=== PATIENT | female | born 1940 | race Two or more races ===

== ENCOUNTER 2019-10-20 10:30 | Outpatient (CLI) | payer MEDICARE, OTHER ==
[2019-10-20 12:24] LABS: BASOPHILS % (AUTO) 0.4 % (0.0-2.0); HEMATOCRIT 32 % (33-45); HEMOGLOBIN 10.5 g/dL (11.5-14.8); LYMPHOCYTES # (AUTO) 0.9 /CMM (0.8-4.8); LYMPHOCYTES % (AUTO) 9.4 % (20.0-44.0); MEAN CORPUSCULAR HGB CONC 33 g/dl (31.0-36.0); MEAN CORPUSCULAR VOLUME 87 fL (82-100); MONOCYTES # (AUTO) 0.6 /CMM (0.1-1.30); MONOCYTES % (AUTO) 6.5 % (2.0-12.0); NEUTROPHILS # (AUTO) 7.9 /CMM (1.8-8.9); NEUTROPHILS % (AUTO) 82.7 % (43.0-81.0); PLATELET COUNT (AUTO) 395 /CMM (150-450); RED BLOOD CELL COUNT(AUTO) 3.67 MIL/uL (4.0-5.2); WHITE BLOOD COUNT (AUTO) 9.6 K/uL (4.3-11.0)
[2019-10-20 13:21] LABS: ALBUMIN 2.7 g/dL (3.4-5.0); BILIRUBIN,TOTAL 0.3 mg/dL (0.2-1.0); CALCIUM, SERUM 8.9 mg/dL (8.5-10.1); CREATININE 0.9 mg/dL (0.6-1.3); POTASSIUM 4.2 mmol/L (3.5-5.1); TOTAL PROTEIN, SERUM 7.3 g/dL (6.4-8.2)
== END 2019-10-20 23:59 | disposition home health service (06) ==
LOC: WOU 10:30
PROVIDERS: ATTEND Podiatrist Foot & Ankle Surgery
DX: I87.312 Chronic venous hypertension (idiopathic) with ulcer of left lower extremity (principal); L97.322 Non-pressure chronic ulcer of left ankle with fat layer exposed; L97.822 Non-pressure chronic ulcer of other part of left lower leg with fat layer exposed; M79.605 Pain in left leg; Z79.82 Long term (current) use of aspirin
CPT/HCPCS: 11042; 11045; 36415; 80053-TC; 84134-TC; 85025-TC

== ENCOUNTER 2019-10-21 13:22 | Outpatient (CLI) | payer MEDICARE, OTHER | END 2019-10-21 23:59 | disposition home or self-care (01) | LOC: CARD 13:22 | PROVIDERS: ATTEND Podiatrist Foot & Ankle Surgery | DX: I70.203 Unspecified atherosclerosis of native arteries of extremities, bilateral legs (principal); L98.499 Non-pressure chronic ulcer of skin of other sites with unspecified severity | CPT/HCPCS: 93970-TC ==

== ENCOUNTER 2019-10-22 12:36 | Outpatient (CLI) | payer MEDICARE, OTHER | END 2019-10-22 23:59 | disposition home or self-care (01) | LOC: WOU 12:36 | PROVIDERS: ATTEND Surgery Vascular Surgery | DX: I87.312 Chronic venous hypertension (idiopathic) with ulcer of left lower extremity (principal); L97.322 Non-pressure chronic ulcer of left ankle with fat layer exposed; L97.822 Non-pressure chronic ulcer of other part of left lower leg with fat layer exposed; E11.51 Type 2 diabetes mellitus with diabetic peripheral angiopathy without gangrene; M20.42 Other hammer toe(s) (acquired), left foot; M20.41 Other hammer toe(s) (acquired), right foot; M21.42 Flat foot [pes planus] (acquired), left foot; M79.605 Pain in left leg; Z79.82 Long term (current) use of aspirin | CPT/HCPCS: A6452; G0463; A6207 ==

== ENCOUNTER 2019-10-23 10:30 | Outpatient (CLI) | payer MEDICARE, OTHER | END 2019-10-23 23:59 | disposition home health service (06) | LOC: WOU 10:30 | PROVIDERS: ATTEND Podiatrist Foot & Ankle Surgery | DX: I87.312 Chronic venous hypertension (idiopathic) with ulcer of left lower extremity (principal); L97.322 Non-pressure chronic ulcer of left ankle with fat layer exposed; L97.822 Non-pressure chronic ulcer of other part of left lower leg with fat layer exposed; I73.9 Peripheral vascular disease, unspecified; M20.42 Other hammer toe(s) (acquired), left foot; M20.41 Other hammer toe(s) (acquired), right foot; M21.42 Flat foot [pes planus] (acquired), left foot; M79.605 Pain in left leg; Z79.82 Long term (current) use of aspirin | CPT/HCPCS: 11042; 11045; A6197 ×2; A6452; J3490; J7040 ==

== ENCOUNTER 2019-10-27 10:30 | Outpatient (CLI) | payer MEDICARE, OTHER | END 2019-10-27 23:59 | disposition home health service (06) | LOC: WOU 10:30 | PROVIDERS: ATTEND Podiatrist Foot & Ankle Surgery | DX: I87.312 Chronic venous hypertension (idiopathic) with ulcer of left lower extremity (principal); L97.322 Non-pressure chronic ulcer of left ankle with fat layer exposed; L97.822 Non-pressure chronic ulcer of other part of left lower leg with fat layer exposed; I73.9 Peripheral vascular disease, unspecified; M20.42 Other hammer toe(s) (acquired), left foot; M20.41 Other hammer toe(s) (acquired), right foot; M21.42 Flat foot [pes planus] (acquired), left foot; M79.605 Pain in left leg; Z79.82 Long term (current) use of aspirin | CPT/HCPCS: 11042; 11045; A6197; A6452; J7040 ==

== ENCOUNTER 2019-10-28 11:37 | Outpatient (CLI) | payer MEDICARE, OTHER | END 2019-10-28 23:59 | disposition home or self-care (01) | LOC: MSC 11:37 | PROVIDERS: ATTEND Internal Medicine | DX: M17.0 Bilateral primary osteoarthritis of knee (principal); S91.002D Unspecified open wound, left ankle, subsequent encounter; X58.XXXD Exposure to other specified factors, subsequent encounter; I73.9 Peripheral vascular disease, unspecified; Z86.79 Personal history of other diseases of the circulatory system; Z95.0 Presence of cardiac pacemaker; E03.9 Hypothyroidism, unspecified; R73.03 Prediabetes; I10 Essential (primary) hypertension; G62.9 Polyneuropathy, unspecified; Z79.82 Long term (current) use of aspirin; Z99.3 Dependence on wheelchair ==

== ENCOUNTER 2019-10-30 13:34 | Outpatient (CLI) | payer MEDICARE, OTHER | END 2019-10-30 23:59 | disposition home or self-care (01) | LOC: CARD 13:34 | PROVIDERS: ATTEND Surgery Vascular Surgery | DX: I87.8 Other specified disorders of veins (principal) | CPT/HCPCS: 93970-TC ==

== ENCOUNTER 2019-10-30 14:05 | Outpatient (CLI) | payer MEDICARE, OTHER | END 2019-10-30 23:59 | disposition home health service (06) | LOC: WOU 14:05 | PROVIDERS: ATTEND Podiatrist Foot & Ankle Surgery | DX: I87.312 Chronic venous hypertension (idiopathic) with ulcer of left lower extremity (principal); L97.322 Non-pressure chronic ulcer of left ankle with fat layer exposed; L97.822 Non-pressure chronic ulcer of other part of left lower leg with fat layer exposed; I73.9 Peripheral vascular disease, unspecified; M79.605 Pain in left leg; M20.42 Other hammer toe(s) (acquired), left foot; M20.41 Other hammer toe(s) (acquired), right foot; M21.42 Flat foot [pes planus] (acquired), left foot; Z79.82 Long term (current) use of aspirin | CPT/HCPCS: 11042; 11045; J3490; J7040 ==

== ENCOUNTER 2019-11-03 10:30 | Outpatient (CLI) | payer MEDICARE, OTHER | END 2019-11-03 23:59 | disposition home health service (06) | LOC: WOU 10:30 | PROVIDERS: ATTEND Podiatrist Foot & Ankle Surgery | DX: I87.312 Chronic venous hypertension (idiopathic) with ulcer of left lower extremity (principal); L97.322 Non-pressure chronic ulcer of left ankle with fat layer exposed; L97.822 Non-pressure chronic ulcer of other part of left lower leg with fat layer exposed; I87.2 Venous insufficiency (chronic) (peripheral); M79.605 Pain in left leg; M20.42 Other hammer toe(s) (acquired), left foot; M21.42 Flat foot [pes planus] (acquired), left foot; Z79.82 Long term (current) use of aspirin | CPT/HCPCS: 11042; 11045; J7040; J3490 ==

== ENCOUNTER 2019-11-06 10:30 | Outpatient (CLI) | payer MEDICARE, OTHER | END 2019-11-06 23:59 | disposition home health service (06) | LOC: WOU 10:30 | PROVIDERS: ATTEND Podiatrist Foot & Ankle Surgery | DX: I87.312 Chronic venous hypertension (idiopathic) with ulcer of left lower extremity (principal); L97.322 Non-pressure chronic ulcer of left ankle with fat layer exposed; L97.222 Non-pressure chronic ulcer of left calf with fat layer exposed; L97.822 Non-pressure chronic ulcer of other part of left lower leg with fat layer exposed; M79.605 Pain in left leg; M20.42 Other hammer toe(s) (acquired), left foot; M20.41 Other hammer toe(s) (acquired), right foot; M21.42 Flat foot [pes planus] (acquired), left foot; Z79.82 Long term (current) use of aspirin | CPT/HCPCS: 11042; 11045; J3490; J7040 ==

== ENCOUNTER 2019-11-11 14:00 | Outpatient (CLI) | payer MEDICARE, OTHER | END 2019-11-11 23:59 | disposition home health service (06) | LOC: VASLAB 14:00 | PROVIDERS: ATTEND Surgery Vascular Surgery | DX: I87.2 Venous insufficiency (chronic) (peripheral) (principal); L97.322 Non-pressure chronic ulcer of left ankle with fat layer exposed; L97.222 Non-pressure chronic ulcer of left calf with fat layer exposed; L97.822 Non-pressure chronic ulcer of other part of left lower leg with fat layer exposed; Z79.82 Long term (current) use of aspirin | CPT/HCPCS: G0463 ==

== ENCOUNTER 2019-11-20 08:20 | Outpatient (CLI) | payer MEDICARE, OTHER | END 2019-11-20 23:59 | disposition home health service (06) | LOC: WOU 08:20 | PROVIDERS: ATTEND Podiatrist Foot & Ankle Surgery | DX: I87.312 Chronic venous hypertension (idiopathic) with ulcer of left lower extremity (principal); L97.322 Non-pressure chronic ulcer of left ankle with fat layer exposed; L97.222 Non-pressure chronic ulcer of left calf with fat layer exposed; L97.822 Non-pressure chronic ulcer of other part of left lower leg with fat layer exposed; I73.9 Peripheral vascular disease, unspecified; M20.42 Other hammer toe(s) (acquired), left foot; M20.41 Other hammer toe(s) (acquired), right foot; M21.42 Flat foot [pes planus] (acquired), left foot; M79.605 Pain in left leg; Z79.82 Long term (current) use of aspirin | CPT/HCPCS: 11042; 11045; A6253; J3490; J7040 ==

== ENCOUNTER 2019-11-24 09:45 | Outpatient (CLI) | payer MEDICARE, OTHER | END 2019-11-24 23:59 | disposition home health service (06) | LOC: WOU 09:45 | PROVIDERS: ATTEND Podiatrist Foot & Ankle Surgery | DX: I87.312 Chronic venous hypertension (idiopathic) with ulcer of left lower extremity (principal); L97.322 Non-pressure chronic ulcer of left ankle with fat layer exposed; L97.222 Non-pressure chronic ulcer of left calf with fat layer exposed; L97.822 Non-pressure chronic ulcer of other part of left lower leg with fat layer exposed; I73.9 Peripheral vascular disease, unspecified; M20.42 Other hammer toe(s) (acquired), left foot; M20.41 Other hammer toe(s) (acquired), right foot; M21.42 Flat foot [pes planus] (acquired), left foot; M79.605 Pain in left leg; Z79.82 Long term (current) use of aspirin | CPT/HCPCS: 11042; 11045; A6253 ×2; J3490; J7040 ==

== ENCOUNTER 2019-11-27 10:10 | Outpatient (CLI) | payer MEDICARE, OTHER | END 2019-11-27 23:59 | disposition home health service (06) | LOC: WOU 10:10 | PROVIDERS: ATTEND Podiatrist Foot & Ankle Surgery | DX: I87.312 Chronic venous hypertension (idiopathic) with ulcer of left lower extremity (principal); L97.322 Non-pressure chronic ulcer of left ankle with fat layer exposed; L97.222 Non-pressure chronic ulcer of left calf with fat layer exposed; L97.825 Non-pressure chronic ulcer of other part of left lower leg with muscle involvement without evidence of necrosis; I73.9 Peripheral vascular disease, unspecified; M20.42 Other hammer toe(s) (acquired), left foot; M20.41 Other hammer toe(s) (acquired), right foot; M21.42 Flat foot [pes planus] (acquired), left foot; M79.605 Pain in left leg; Z79.82 Long term (current) use of aspirin | CPT/HCPCS: 11042; 11045; A6253; J3490; J7040 ==

== ENCOUNTER 2019-12-01 09:00 | Outpatient (CLI) | payer MEDICARE, OTHER ==
[2019-12-01] MEDS ORDERED: ETHYL CHLORIDE SPRAY 1 EA BOTTLE TP ONE (10:00)
== END 2019-12-01 23:59 | disposition home health service (06) ==
LOC: WOU 09:00
PROVIDERS: ATTEND Podiatrist Foot & Ankle Surgery
DX: I87.312 Chronic venous hypertension (idiopathic) with ulcer of left lower extremity (principal); L97.322 Non-pressure chronic ulcer of left ankle with fat layer exposed; L97.222 Non-pressure chronic ulcer of left calf with fat layer exposed; L97.822 Non-pressure chronic ulcer of other part of left lower leg with fat layer exposed; I73.9 Peripheral vascular disease, unspecified; M79.605 Pain in left leg; M20.42 Other hammer toe(s) (acquired), left foot; M20.41 Other hammer toe(s) (acquired), right foot; Z79.82 Long term (current) use of aspirin
CPT/HCPCS: 11042; 11045; J3490; J7040

== ENCOUNTER 2019-12-04 09:30 | Outpatient (CLI) | payer MEDICARE, OTHER | END 2019-12-04 23:59 | disposition home health service (06) | LOC: WOU 09:30 | PROVIDERS: ATTEND Podiatrist Foot & Ankle Surgery | DX: I87.312 Chronic venous hypertension (idiopathic) with ulcer of left lower extremity (principal); L97.322 Non-pressure chronic ulcer of left ankle with fat layer exposed; L97.222 Non-pressure chronic ulcer of left calf with fat layer exposed; L97.825 Non-pressure chronic ulcer of other part of left lower leg with muscle involvement without evidence of necrosis; I73.9 Peripheral vascular disease, unspecified; M20.42 Other hammer toe(s) (acquired), left foot; M20.41 Other hammer toe(s) (acquired), right foot; M21.42 Flat foot [pes planus] (acquired), left foot; M79.605 Pain in left leg; Z79.82 Long term (current) use of aspirin | CPT/HCPCS: 11042; 11045; J7040 ==

== ENCOUNTER 2019-12-08 09:15 | Outpatient (CLI) | payer MEDICARE, OTHER | END 2019-12-08 23:59 | disposition home health service (06) | LOC: WOU 09:15 | PROVIDERS: ATTEND Podiatrist Foot & Ankle Surgery | DX: I87.312 Chronic venous hypertension (idiopathic) with ulcer of left lower extremity (principal); L97.322 Non-pressure chronic ulcer of left ankle with fat layer exposed; L97.222 Non-pressure chronic ulcer of left calf with fat layer exposed; L97.825 Non-pressure chronic ulcer of other part of left lower leg with muscle involvement without evidence of necrosis; E11.51 Type 2 diabetes mellitus with diabetic peripheral angiopathy without gangrene; M79.605 Pain in left leg; M20.42 Other hammer toe(s) (acquired), left foot; M20.41 Other hammer toe(s) (acquired), right foot; M21.42 Flat foot [pes planus] (acquired), left foot; Z79.82 Long term (current) use of aspirin | CPT/HCPCS: 11042; 11045; A6253; J7040 ==

== ENCOUNTER 2019-12-11 09:10 | Outpatient (CLI) | payer MEDICARE, OTHER | END 2019-12-11 23:59 | disposition home health service (06) | LOC: WOU 09:10 | PROVIDERS: ATTEND Podiatrist Foot & Ankle Surgery | DX: I83.12 Varicose veins of left lower extremity with inflammation (principal); L97.322 Non-pressure chronic ulcer of left ankle with fat layer exposed; L97.222 Non-pressure chronic ulcer of left calf with fat layer exposed; L97.825 Non-pressure chronic ulcer of other part of left lower leg with muscle involvement without evidence of necrosis; E11.51 Type 2 diabetes mellitus with diabetic peripheral angiopathy without gangrene; L03.116 Cellulitis of left lower limb; M79.605 Pain in left leg; M20.42 Other hammer toe(s) (acquired), left foot; M20.41 Other hammer toe(s) (acquired), right foot; M21.42 Flat foot [pes planus] (acquired), left foot | CPT/HCPCS: 11042; 11045; A6253; J7040 ==

== ENCOUNTER 2019-12-15 09:25 | Outpatient (CLI) | payer MEDICARE, OTHER | END 2019-12-15 23:59 | disposition home health service (06) | LOC: WOU 09:25 | PROVIDERS: ATTEND Podiatrist Foot & Ankle Surgery | DX: I87.312 Chronic venous hypertension (idiopathic) with ulcer of left lower extremity (principal); L97.322 Non-pressure chronic ulcer of left ankle with fat layer exposed; L97.222 Non-pressure chronic ulcer of left calf with fat layer exposed; L97.822 Non-pressure chronic ulcer of other part of left lower leg with fat layer exposed; I73.9 Peripheral vascular disease, unspecified; M20.42 Other hammer toe(s) (acquired), left foot; M20.41 Other hammer toe(s) (acquired), right foot; M21.42 Flat foot [pes planus] (acquired), left foot; E11.9 Type 2 diabetes mellitus without complications; Z79.82 Long term (current) use of aspirin | CPT/HCPCS: 11042; 11045; 97606-TC ==

== ENCOUNTER 2019-12-18 09:15 | Outpatient (CLI) | payer MEDICARE, OTHER | END 2019-12-18 23:59 | disposition home health service (06) | LOC: WOU 09:15 | PROVIDERS: ATTEND Podiatrist Foot & Ankle Surgery | DX: I87.312 Chronic venous hypertension (idiopathic) with ulcer of left lower extremity (principal); L97.322 Non-pressure chronic ulcer of left ankle with fat layer exposed; L97.222 Non-pressure chronic ulcer of left calf with fat layer exposed; L97.822 Non-pressure chronic ulcer of other part of left lower leg with fat layer exposed; E11.51 Type 2 diabetes mellitus with diabetic peripheral angiopathy without gangrene; I10 Essential (primary) hypertension; M79.605 Pain in left leg; M20.42 Other hammer toe(s) (acquired), left foot; M20.41 Other hammer toe(s) (acquired), right foot; M21.41 Flat foot [pes planus] (acquired), right foot; Z79.82 Long term (current) use of aspirin | CPT/HCPCS: 11042; 11045; J7040 ==

== ENCOUNTER 2019-12-22 09:00 | Outpatient (CLI) | payer MEDICARE, OTHER | END 2019-12-22 23:59 | disposition home health service (06) | LOC: WOU 09:00 | PROVIDERS: ATTEND Podiatrist Foot & Ankle Surgery | DX: I87.312 Chronic venous hypertension (idiopathic) with ulcer of left lower extremity (principal); L97.322 Non-pressure chronic ulcer of left ankle with fat layer exposed; L97.222 Non-pressure chronic ulcer of left calf with fat layer exposed; L97.822 Non-pressure chronic ulcer of other part of left lower leg with fat layer exposed; E11.51 Type 2 diabetes mellitus with diabetic peripheral angiopathy without gangrene; M79.605 Pain in left leg; M20.42 Other hammer toe(s) (acquired), left foot; M20.41 Other hammer toe(s) (acquired), right foot; M21.42 Flat foot [pes planus] (acquired), left foot; Z79.82 Long term (current) use of aspirin | CPT/HCPCS: 11042; 11045; J7040 ==

== ENCOUNTER 2019-12-23 09:24 | Outpatient (CLI) | payer MEDICARE, OTHER ==
[2019-12-23 09:55] LABS: ALBUMIN 2.9 g/dL (3.4-5.0); BILIRUBIN,TOTAL 0.4 mg/dL (0.2-1.0); CALCIUM, SERUM 8.8 mg/dL (8.5-10.1); CREATININE 0.7 mg/dL (0.6-1.3); POTASSIUM 3.7 mmol/L (3.5-5.1); TOTAL PROTEIN, SERUM 7.7 g/dL (6.4-8.2)
== END 2019-12-23 23:59 | disposition home or self-care (01) ==
LOC: LAB 09:24
PROVIDERS: ATTEND Internal Medicine Interventional Cardiology
DX: I10 Essential (primary) hypertension (principal); M54.5 Low back pain; G89.4 Chronic pain syndrome; M54.16 Radiculopathy, lumbar region; M62.830 Muscle spasm of back; M40.209 Unspecified kyphosis, site unspecified; M79.606 Pain in leg, unspecified
CPT/HCPCS: 36415; 80053-TC

== ENCOUNTER 2019-12-25 09:10 | Outpatient (CLI) | payer MEDICARE, OTHER | END 2019-12-25 23:59 | disposition home health service (06) | LOC: WOU 09:10 | PROVIDERS: ATTEND Podiatrist Foot & Ankle Surgery | DX: I87.312 Chronic venous hypertension (idiopathic) with ulcer of left lower extremity (principal); L97.322 Non-pressure chronic ulcer of left ankle with fat layer exposed; L97.222 Non-pressure chronic ulcer of left calf with fat layer exposed; L97.822 Non-pressure chronic ulcer of other part of left lower leg with fat layer exposed; E11.51 Type 2 diabetes mellitus with diabetic peripheral angiopathy without gangrene; M20.42 Other hammer toe(s) (acquired), left foot; M20.41 Other hammer toe(s) (acquired), right foot; M21.42 Flat foot [pes planus] (acquired), left foot; M79.605 Pain in left leg; Z79.82 Long term (current) use of aspirin | CPT/HCPCS: 11042; 11045; J7040 ==

== ENCOUNTER 2019-12-29 09:20 | Outpatient (CLI) | payer MEDICARE, OTHER | END 2019-12-29 23:59 | disposition home health service (06) | LOC: WOU 09:20 | PROVIDERS: ATTEND Podiatrist Foot & Ankle Surgery | DX: I87.312 Chronic venous hypertension (idiopathic) with ulcer of left lower extremity (principal); L97.322 Non-pressure chronic ulcer of left ankle with fat layer exposed; L97.222 Non-pressure chronic ulcer of left calf with fat layer exposed; L97.822 Non-pressure chronic ulcer of other part of left lower leg with fat layer exposed; M79.605 Pain in left leg; M20.42 Other hammer toe(s) (acquired), left foot; M20.41 Other hammer toe(s) (acquired), right foot; M21.42 Flat foot [pes planus] (acquired), left foot; E11.51 Type 2 diabetes mellitus with diabetic peripheral angiopathy without gangrene; I10 Essential (primary) hypertension; Z79.82 Long term (current) use of aspirin | CPT/HCPCS: 11042; 11045; A6253 ==

== ENCOUNTER 2020-01-01 09:00 | Outpatient (CLI) | payer MEDICARE, OTHER | END 2020-01-01 23:59 | disposition home health service (06) | LOC: WOU 09:00 | PROVIDERS: ATTEND Podiatrist Foot & Ankle Surgery | DX: I87.312 Chronic venous hypertension (idiopathic) with ulcer of left lower extremity (principal); L97.322 Non-pressure chronic ulcer of left ankle with fat layer exposed; L97.222 Non-pressure chronic ulcer of left calf with fat layer exposed; L97.822 Non-pressure chronic ulcer of other part of left lower leg with fat layer exposed; E11.51 Type 2 diabetes mellitus with diabetic peripheral angiopathy without gangrene; M20.42 Other hammer toe(s) (acquired), left foot; M20.41 Other hammer toe(s) (acquired), right foot; M21.42 Flat foot [pes planus] (acquired), left foot; L03.116 Cellulitis of left lower limb; Z79.82 Long term (current) use of aspirin | CPT/HCPCS: 11042; 11045; A6253 ×2 ==

== ENCOUNTER 2020-01-05 08:40 | Outpatient (CLI) | payer MEDICARE, OTHER | END 2020-01-05 23:59 | disposition home health service (06) | LOC: WOU 08:40 | PROVIDERS: ATTEND Podiatrist Foot & Ankle Surgery | DX: I87.312 Chronic venous hypertension (idiopathic) with ulcer of left lower extremity (principal); L97.322 Non-pressure chronic ulcer of left ankle with fat layer exposed; L97.222 Non-pressure chronic ulcer of left calf with fat layer exposed; L97.822 Non-pressure chronic ulcer of other part of left lower leg with fat layer exposed; E11.51 Type 2 diabetes mellitus with diabetic peripheral angiopathy without gangrene; L03.116 Cellulitis of left lower limb; M20.42 Other hammer toe(s) (acquired), left foot; M20.41 Other hammer toe(s) (acquired), right foot; M21.42 Flat foot [pes planus] (acquired), left foot; I10 Essential (primary) hypertension; Z79.82 Long term (current) use of aspirin | CPT/HCPCS: 11042; 11045; A6253 ==

== ENCOUNTER 2020-01-06 09:09 | Day surgery (SDC) | payer MEDICARE, OTHER ==
[~2020-01-06] VITALS: Ht 152.4 cm; Wt 50.8 kg
[2020-01-06 09:54] LABS: CALCIUM, SERUM 9.1 mg/dL (8.5-10.1); CREATININE 0.8 mg/dL (0.6-1.3); POTASSIUM 3.6 mmol/L (3.5-5.1)
[2020-01-06] MEDS ORDERED: IOHEXOL-350 100 ML VIAL IV ONE (10:12)
[2020-01-06] MEDS ORDERED: IV NS 0.9% 250 ML IV ONE (10:12)
[2020-01-06 10:29] VITALS: BP 145/106
[2020-01-06] MEDS ORDERED: IV NS 0.9% 500 ML IV PRN (10:30)
[2020-01-06] MEDS ORDERED: NITROGLYCERIN 0.4 MG/TAB BOTTLE SL ONE (10:30)
--- NOTE | 2020-01-06 10:46 | NUR ---
IV removed. Catheter intact and site benign. Pressure and 4x4 applied to site. No bleeding noted.Patient discharged to home in stable condition. Ambulates with the walker, gait stable. Verbal after care instructions given. Patient verbalizes understanding of instruction.
== END 2020-01-06 11:03 | disposition home or self-care (01) ==
LOC: CT 09:09
PROVIDERS: ATTEND Internal Medicine Interventional Cardiology
DX: I42.9 Cardiomyopathy, unspecified (principal); R06.00 Dyspnea, unspecified; I10 Essential (primary) hypertension
CPT/HCPCS: 36415; 75574; 80048; J7050; Q9967

== ENCOUNTER 2020-01-08 09:55 | Outpatient (CLI) | payer MEDICARE, OTHER | END 2020-01-08 23:59 | disposition home health service (06) | LOC: WOU 09:55 | PROVIDERS: ATTEND Podiatrist Foot & Ankle Surgery | DX: I87.312 Chronic venous hypertension (idiopathic) with ulcer of left lower extremity (principal); L97.322 Non-pressure chronic ulcer of left ankle with fat layer exposed; L97.222 Non-pressure chronic ulcer of left calf with fat layer exposed; L97.822 Non-pressure chronic ulcer of other part of left lower leg with fat layer exposed; E11.51 Type 2 diabetes mellitus with diabetic peripheral angiopathy without gangrene; M20.42 Other hammer toe(s) (acquired), left foot; M20.41 Other hammer toe(s) (acquired), right foot; M21.42 Flat foot [pes planus] (acquired), left foot; L03.116 Cellulitis of left lower limb; Z79.82 Long term (current) use of aspirin; M79.605 Pain in left leg; I10 Essential (primary) hypertension | CPT/HCPCS: 11042; 11045; A6253 ==

== ENCOUNTER 2020-01-12 08:45 | Outpatient (CLI) | payer MEDICARE, OTHER | END 2020-01-12 23:59 | disposition home health service (06) | LOC: WOU 08:45 | PROVIDERS: ATTEND Podiatrist Foot & Ankle Surgery | DX: I87.312 Chronic venous hypertension (idiopathic) with ulcer of left lower extremity (principal); L97.322 Non-pressure chronic ulcer of left ankle with fat layer exposed; L97.222 Non-pressure chronic ulcer of left calf with fat layer exposed; L97.822 Non-pressure chronic ulcer of other part of left lower leg with fat layer exposed; L03.116 Cellulitis of left lower limb; M20.42 Other hammer toe(s) (acquired), left foot; M20.41 Other hammer toe(s) (acquired), right foot; M21.42 Flat foot [pes planus] (acquired), left foot; E11.51 Type 2 diabetes mellitus with diabetic peripheral angiopathy without gangrene; Z79.82 Long term (current) use of aspirin; M79.605 Pain in left leg | CPT/HCPCS: 11042; 11045 ==

== ENCOUNTER 2020-01-15 08:30 | Outpatient (CLI) | payer MEDICARE, OTHER | END 2020-01-15 23:59 | disposition home health service (06) | LOC: WOU 08:30 | PROVIDERS: ATTEND Podiatrist Foot & Ankle Surgery | DX: I87.312 Chronic venous hypertension (idiopathic) with ulcer of left lower extremity (principal); L97.322 Non-pressure chronic ulcer of left ankle with fat layer exposed; L97.222 Non-pressure chronic ulcer of left calf with fat layer exposed; L97.822 Non-pressure chronic ulcer of other part of left lower leg with fat layer exposed; L03.116 Cellulitis of left lower limb; E11.59 Type 2 diabetes mellitus with other circulatory complications; M20.42 Other hammer toe(s) (acquired), left foot; M20.41 Other hammer toe(s) (acquired), right foot; M21.42 Flat foot [pes planus] (acquired), left foot; Z79.82 Long term (current) use of aspirin | CPT/HCPCS: 11042; 11045 ==

== ENCOUNTER → 2020-01-22 | Outpatient (CLI) | payer MEDICARE, OTHER | END | disposition home health service (06) | LOC: WOU 08:30 | PROVIDERS: ATTEND Podiatrist Foot & Ankle Surgery | DX: I87.312 Chronic venous hypertension (idiopathic) with ulcer of left lower extremity (principal); L97.322 Non-pressure chronic ulcer of left ankle with fat layer exposed; L97.222 Non-pressure chronic ulcer of left calf with fat layer exposed; L97.822 Non-pressure chronic ulcer of other part of left lower leg with fat layer exposed; E11.51 Type 2 diabetes mellitus with diabetic peripheral angiopathy without gangrene; M79.605 Pain in left leg; M20.42 Other hammer toe(s) (acquired), left foot; M20.41 Other hammer toe(s) (acquired), right foot; M21.42 Flat foot [pes planus] (acquired), left foot; Z79.82 Long term (current) use of aspirin; I10 Essential (primary) hypertension | CPT/HCPCS: 11042; 11045; A6210 ==

== ENCOUNTER 2020-01-29 08:50 | Outpatient (CLI) | payer MEDICARE, OTHER ==
[2020-01-29] MEDS ORDERED: Z GUARD REMEDY 2 OZ OINT TP ONE (09:30)
[2020-01-29] MEDS ORDERED: CLOTRIMAZOLE 1% 15 GM TUBE TP ONE (09:31)
== END 2020-01-29 23:59 | disposition home health service (06) ==
LOC: WOU 08:50
PROVIDERS: ATTEND Podiatrist Foot & Ankle Surgery
DX: I87.312 Chronic venous hypertension (idiopathic) with ulcer of left lower extremity (principal); L97.322 Non-pressure chronic ulcer of left ankle with fat layer exposed; L97.222 Non-pressure chronic ulcer of left calf with fat layer exposed; L97.822 Non-pressure chronic ulcer of other part of left lower leg with fat layer exposed; E11.51 Type 2 diabetes mellitus with diabetic peripheral angiopathy without gangrene; L03.116 Cellulitis of left lower limb; M20.42 Other hammer toe(s) (acquired), left foot; M20.41 Other hammer toe(s) (acquired), right foot; M21.42 Flat foot [pes planus] (acquired), left foot; M79.605 Pain in left leg; Z79.82 Long term (current) use of aspirin
CPT/HCPCS: 11042; 11045; A6210

== ENCOUNTER 2020-02-02 08:50 | Outpatient (CLI) | payer MEDICARE, OTHER ==
[2020-02-02] MEDS ORDERED: LIDOCAINE SOLN 4% 50 ML BOTTLE ONE (08:58)
[2020-02-02] MEDS ORDERED: Z GUARD REMEDY 2 OZ OINT TP ONE (09:50)
[2020-02-02] MEDS ORDERED: CLOTRIMAZOLE 1% 15 GM TUBE TP ONE (09:50)
== END 2020-02-02 23:59 | disposition home health service (06) ==
LOC: WOU 08:50
PROVIDERS: ATTEND Podiatrist Foot & Ankle Surgery
DX: L97.322 Non-pressure chronic ulcer of left ankle with fat layer exposed (principal); L97.822 Non-pressure chronic ulcer of other part of left lower leg with fat layer exposed; L03.116 Cellulitis of left lower limb; E11.51 Type 2 diabetes mellitus with diabetic peripheral angiopathy without gangrene; M20.42 Other hammer toe(s) (acquired), left foot; M20.41 Other hammer toe(s) (acquired), right foot; M21.42 Flat foot [pes planus] (acquired), left foot; Z79.82 Long term (current) use of aspirin
CPT/HCPCS: 11042; 11045

== ENCOUNTER 2020-02-05 08:40 | Outpatient (CLI) | payer MEDICARE, OTHER ==
[2020-02-05] MEDS ORDERED: LIDOCAINE SOLN 4% 50 ML BOTTLE ONE (08:51)
[2020-02-05] MEDS ORDERED: Z GUARD REMEDY 2 OZ OINT TP ONE (09:26)
[2020-02-05] MEDS ORDERED: UREA 10% -AHA 4% CREAM 57 GM TUBE ONE (09:27)
[2020-02-05] MEDS ORDERED: CLOTRIMAZOLE 1% 15 GM TUBE TP ONE (09:27)
== END 2020-02-05 23:59 | disposition home health service (06) ==
LOC: WOU 08:40
PROVIDERS: ATTEND Podiatrist Foot & Ankle Surgery
DX: I87.312 Chronic venous hypertension (idiopathic) with ulcer of left lower extremity (principal); L97.322 Non-pressure chronic ulcer of left ankle with fat layer exposed; L97.822 Non-pressure chronic ulcer of other part of left lower leg with fat layer exposed; I73.9 Peripheral vascular disease, unspecified; M21.42 Flat foot [pes planus] (acquired), left foot; M20.42 Other hammer toe(s) (acquired), left foot; M20.41 Other hammer toe(s) (acquired), right foot; E11.9 Type 2 diabetes mellitus without complications; Z79.82 Long term (current) use of aspirin; M79.605 Pain in left leg; I10 Essential (primary) hypertension
CPT/HCPCS: 11042; 11045

== ENCOUNTER 2020-02-09 09:00 | Outpatient (CLI) | payer MEDICARE, OTHER ==
[~2020-02-09 09:00] MED LIST: LIDOCAINE SOLN 4% 50 ML BOTTLE ONE
== END 2020-02-09 23:59 | disposition home health service (06) ==
LOC: WOU 09:00
PROVIDERS: ATTEND Podiatrist Foot & Ankle Surgery
DX: I87.312 Chronic venous hypertension (idiopathic) with ulcer of left lower extremity (principal); L97.322 Non-pressure chronic ulcer of left ankle with fat layer exposed; L97.822 Non-pressure chronic ulcer of other part of left lower leg with fat layer exposed; M20.42 Other hammer toe(s) (acquired), left foot; M20.41 Other hammer toe(s) (acquired), right foot; M21.42 Flat foot [pes planus] (acquired), left foot; E11.51 Type 2 diabetes mellitus with diabetic peripheral angiopathy without gangrene; Z79.82 Long term (current) use of aspirin
CPT/HCPCS: 11042; 11045

== ENCOUNTER 2020-02-10 09:00 | Outpatient (CLI) | payer MEDICARE, OTHER ==
[2020-02-10 10:12] LABS: BASOPHILS % (AUTO) 0.5 % (0.0-2.0); EOSINOPHILS % (AUTO) 1.3 % (0.0-6.0); HEMATOCRIT 32 % (33-45); HEMOGLOBIN 10.2 g/dL (11.5-14.8); LYMPHOCYTES # (AUTO) 1.1 /CMM (0.8-4.8); MEAN CORPUSCULAR HGB CONC 32 g/dl (31.0-36.0); MEAN CORPUSCULAR VOLUME 83 fL (82-100); MONOCYTES # (AUTO) 0.4 /CMM (0.1-1.30); MONOCYTES % (AUTO) 5.7 % (2.0-12.0); NEUTROPHILS # (AUTO) 5.4 /CMM (1.8-8.9); NEUTROPHILS % (AUTO) 77.5 % (43.0-81.0); PLATELET COUNT (AUTO) 266 /CMM (150-450)
[2020-02-10 11:07] LABS: ALBUMIN 2.7 g/dL (3.4-5.0); BILIRUBIN,DIRECT 0.1 mg/dL (0.0-0.2); BILIRUBIN,TOTAL 0.4 mg/dL (0.2-1.0); CALCIUM, SERUM 8.7 mg/dL (8.5-10.1); CREATININE 0.7 mg/dL (0.6-1.3); POTASSIUM 3.8 mmol/L (3.5-5.1)
[2020-02-10 11:22] LABS: FREE T4 (FREE THYROXINE) 1.28 ng/dL (0.76-1.46); THYROID STIMULATING HORMONE 1.196 uIU/mL (0.358-3.74)
[2020-02-12 11:23] LABS: APPEARANCE,URINE CLEAR (CLEAR); BILIRUBIN,URINE NEGATIVE (NEGATIVE); BLOOD, URINE NEGATIVE Ery/uL (NEGATIVE); COLOR,URINE YELLOW (YELLOW); KETONES,URINE NEGATIVE (NEGATIVE); LEUKOCYTE ESTERASE ,URINE NEGATIVE (NEGATIVE); NITRITE, URINE NEGATIVE (NEGATIVE); PROTEIN,URINE TRACE mg/dl (NEGATIVE); UGLUCOSE NEGATIVE (NEGATIVE); UROBILINOGEN,URINE 0.2 EU/dL (0.2)
[2020-02-12 11:27] LABS: RBC,URINE NONE SEEN /HPF (0-2)
[2020-02-12 11:28] LABS: BACTERIA,URINE None seen /HPF (None Seen); CALCIUM OXALATE CRYSTALS,UR Moderate /HPF (None Seen); SQUAMOUS EPITHELIAL CELL,UR Few /HPF (None Seen); WBC,URINE NONE SEEN /HPF (0-3)
== END 2020-02-10 23:59 | disposition home or self-care (01) ==
LOC: MSC 09:00
PROVIDERS: ATTEND Internal Medicine
DX: R55 Syncope and collapse (principal); S91.002D Unspecified open wound, left ankle, subsequent encounter; I73.9 Peripheral vascular disease, unspecified; R00.1 Bradycardia, unspecified; E03.9 Hypothyroidism, unspecified; E11.42 Type 2 diabetes mellitus with diabetic polyneuropathy; I10 Essential (primary) hypertension; M17.0 Bilateral primary osteoarthritis of knee; Z95.0 Presence of cardiac pacemaker; Z99.3 Dependence on wheelchair; Z99.89 Dependence on other enabling machines and devices
CPT/HCPCS: 36415; 80053; 80061; 81001; 82728; 83036; 83540; 84439; 84443; 85025; 87086; G0463; 80076-TC; 81000-TC

== ENCOUNTER 2020-02-12 09:00 | Outpatient (CLI) | payer MEDICARE, OTHER | END 2020-02-12 23:59 | disposition home health service (06) | LOC: WOU 09:00 | PROVIDERS: ATTEND Podiatrist Foot & Ankle Surgery | DX: I87.312 Chronic venous hypertension (idiopathic) with ulcer of left lower extremity (principal); L97.322 Non-pressure chronic ulcer of left ankle with fat layer exposed; L97.822 Non-pressure chronic ulcer of other part of left lower leg with fat layer exposed; E11.51 Type 2 diabetes mellitus with diabetic peripheral angiopathy without gangrene; M20.42 Other hammer toe(s) (acquired), left foot; M20.41 Other hammer toe(s) (acquired), right foot; M21.42 Flat foot [pes planus] (acquired), left foot; L03.116 Cellulitis of left lower limb; Z79.82 Long term (current) use of aspirin | CPT/HCPCS: 11042; 11045 ==

== ENCOUNTER 2020-02-16 09:00 | Outpatient (CLI) | payer MEDICARE, OTHER ==
[2020-02-16] MEDS ORDERED: LIDOCAINE SOLN 4% 50 ML BOTTLE ONE (09:02)
== END 2020-02-16 23:59 | disposition home health service (06) ==
LOC: WOU 09:00
PROVIDERS: ATTEND Podiatrist Foot & Ankle Surgery
DX: I87.312 Chronic venous hypertension (idiopathic) with ulcer of left lower extremity (principal); L97.322 Non-pressure chronic ulcer of left ankle with fat layer exposed; L97.822 Non-pressure chronic ulcer of other part of left lower leg with fat layer exposed; E11.51 Type 2 diabetes mellitus with diabetic peripheral angiopathy without gangrene; L03.116 Cellulitis of left lower limb; M20.42 Other hammer toe(s) (acquired), left foot; M20.41 Other hammer toe(s) (acquired), right foot; M21.41 Flat foot [pes planus] (acquired), right foot; M79.605 Pain in left leg; Z79.82 Long term (current) use of aspirin
CPT/HCPCS: 11042; 11045

== ENCOUNTER 2020-02-19 09:07 | Outpatient (CLI) | payer MEDICARE, OTHER ==
[2020-02-19] MEDS ORDERED: UREA 10% -AHA 4% CREAM 57 GM TUBE ONE (09:32)
== END 2020-02-19 23:59 | disposition home health service (06) ==
LOC: WOU 09:07
PROVIDERS: ATTEND Podiatrist Foot & Ankle Surgery
DX: I87.312 Chronic venous hypertension (idiopathic) with ulcer of left lower extremity (principal); L97.322 Non-pressure chronic ulcer of left ankle with fat layer exposed; L97.822 Non-pressure chronic ulcer of other part of left lower leg with fat layer exposed; E11.51 Type 2 diabetes mellitus with diabetic peripheral angiopathy without gangrene; L03.116 Cellulitis of left lower limb; M20.42 Other hammer toe(s) (acquired), left foot; M20.41 Other hammer toe(s) (acquired), right foot; M21.42 Flat foot [pes planus] (acquired), left foot; M79.605 Pain in left leg; Z79.82 Long term (current) use of aspirin
CPT/HCPCS: 11042; 11045

== ENCOUNTER 2020-02-23 08:55 | Outpatient (CLI) | payer MEDICARE, OTHER ==
[2020-02-23] MEDS ORDERED: UREA 10% -AHA 4% CREAM 57 GM TUBE ONE (09:29)
== END 2020-02-23 23:59 | disposition home health service (06) ==
LOC: WOU 08:55
PROVIDERS: ATTEND Podiatrist Foot & Ankle Surgery
DX: I87.312 Chronic venous hypertension (idiopathic) with ulcer of left lower extremity (principal); L97.322 Non-pressure chronic ulcer of left ankle with fat layer exposed; L97.522 Non-pressure chronic ulcer of other part of left foot with fat layer exposed; L03.116 Cellulitis of left lower limb; E11.9 Type 2 diabetes mellitus without complications; M20.42 Other hammer toe(s) (acquired), left foot; M20.41 Other hammer toe(s) (acquired), right foot; M21.42 Flat foot [pes planus] (acquired), left foot; M79.605 Pain in left leg; Z79.82 Long term (current) use of aspirin
CPT/HCPCS: 11042; 11045

== ENCOUNTER 2020-02-26 08:51 | Outpatient (CLI) | payer MEDICARE, OTHER | END 2020-02-26 23:59 | disposition home health service (06) | LOC: WOU 08:51 | PROVIDERS: ATTEND Podiatrist Foot & Ankle Surgery | DX: I87.312 Chronic venous hypertension (idiopathic) with ulcer of left lower extremity (principal); L97.322 Non-pressure chronic ulcer of left ankle with fat layer exposed; L97.822 Non-pressure chronic ulcer of other part of left lower leg with fat layer exposed; E11.51 Type 2 diabetes mellitus with diabetic peripheral angiopathy without gangrene; L03.116 Cellulitis of left lower limb; M79.605 Pain in left leg; M20.42 Other hammer toe(s) (acquired), left foot; M20.41 Other hammer toe(s) (acquired), right foot; M21.42 Flat foot [pes planus] (acquired), left foot; Z79.82 Long term (current) use of aspirin | CPT/HCPCS: 11042; 11045 ==

== ENCOUNTER 2020-03-04 08:57 | Outpatient (CLI) | payer MEDICARE, OTHER ==
[2020-03-04] MEDS ORDERED: LIDOCAINE SOLN 4% 50 ML BOTTLE ONE (09:28)
== END 2020-03-04 23:59 | disposition home health service (06) ==
LOC: WOU 08:57
PROVIDERS: ATTEND Podiatrist Foot & Ankle Surgery
DX: I87.312 Chronic venous hypertension (idiopathic) with ulcer of left lower extremity (principal); L03.116 Cellulitis of left lower limb; L97.322 Non-pressure chronic ulcer of left ankle with fat layer exposed; L97.822 Non-pressure chronic ulcer of other part of left lower leg with fat layer exposed; M20.42 Other hammer toe(s) (acquired), left foot; M21.42 Flat foot [pes planus] (acquired), left foot; M79.605 Pain in left leg; E11.51 Type 2 diabetes mellitus with diabetic peripheral angiopathy without gangrene; Z79.82 Long term (current) use of aspirin; Z79.899 Other long term (current) drug therapy; I10 Essential (primary) hypertension
CPT/HCPCS: 11042; 11045

== ENCOUNTER 2020-03-04 10:02 | Emergency (ER) | payer MEDICARE, OTHER ==
[~2020-03-04] VITALS: Ht 152.4 cm; Wt 49.9 kg
[2020-03-04 10:09] VITALS: BP 133/71
--- NOTE | 2020-03-04 10:22 | NUR ---
CALLED WOUND CARE 1994 INFORMED THAT THE PT WILL NOT BE ADMITTED.
--- NOTE | 2020-03-04 12:19 | NUR ---
PATIENT PICKED UP BY WOUND CENTER NURSE.
== END 2020-03-04 12:20 | disposition home or self-care (01) ==
LOC: ER 10:04
DX: I83.022 Varicose veins of left lower extremity with ulcer of calf (principal); R60.0 Localized edema; I10 Essential (primary) hypertension; Z95.0 Presence of cardiac pacemaker; Z60.2 Problems related to living alone
CPT/HCPCS: 93971-TC

== ENCOUNTER 2020-03-08 08:55 | Outpatient (CLI) | payer MEDICARE, OTHER ==
[2020-03-08] MEDS ORDERED: Z GUARD REMEDY 2 OZ OINT TP ONE (09:52)
[2020-03-08] MEDS ORDERED: UREA 10% -AHA 4% CREAM 57 GM TUBE ONE (09:52)
[2020-03-08] MEDS ORDERED: CLOTRIMAZOLE 1% 15 GM TUBE TP ONE (09:52)
== END 2020-03-08 23:59 | disposition home health service (06) ==
LOC: WOU 08:55
PROVIDERS: ATTEND Podiatrist Foot & Ankle Surgery
DX: I87.312 Chronic venous hypertension (idiopathic) with ulcer of left lower extremity (principal); L97.322 Non-pressure chronic ulcer of left ankle with fat layer exposed; L97.822 Non-pressure chronic ulcer of other part of left lower leg with fat layer exposed; L03.116 Cellulitis of left lower limb; E11.51 Type 2 diabetes mellitus with diabetic peripheral angiopathy without gangrene; M21.42 Flat foot [pes planus] (acquired), left foot; M20.42 Other hammer toe(s) (acquired), left foot; M20.41 Other hammer toe(s) (acquired), right foot; Z79.82 Long term (current) use of aspirin; Z79.899 Other long term (current) drug therapy
CPT/HCPCS: 11042; 11045

== ENCOUNTER → 2020-03-09 | Outpatient (CLI) | payer MEDICARE, OTHER | END | disposition home or self-care (01) | LOC: MSC 09:15 | PROVIDERS: ATTEND Anesthesiology | DX: M54.16 Radiculopathy, lumbar region (principal); M62.830 Muscle spasm of back; M40.299 Other kyphosis, site unspecified; G89.4 Chronic pain syndrome; M79.606 Pain in leg, unspecified; Z79.899 Other long term (current) drug therapy; Z79.1 Long term (current) use of non-steroidal anti-inflammatories (NSAID) ==

== ENCOUNTER 2020-03-11 09:00 | Outpatient (CLI) | payer MEDICARE, OTHER ==
[2020-03-11] MEDS ORDERED: UREA 10% -AHA 4% CREAM 57 GM TUBE ONE (09:22)
[2020-03-11] MEDS ORDERED: BACI/NEOM/POLY B OINT PKT 1 UDPKT PACKET ONE (09:29)
== END 2020-03-11 23:59 | disposition home health service (06) ==
LOC: WOU 09:00
PROVIDERS: ATTEND Podiatrist Foot & Ankle Surgery
DX: I87.313 Chronic venous hypertension (idiopathic) with ulcer of bilateral lower extremity (principal); L97.322 Non-pressure chronic ulcer of left ankle with fat layer exposed; L97.822 Non-pressure chronic ulcer of other part of left lower leg with fat layer exposed; L97.512 Non-pressure chronic ulcer of other part of right foot with fat layer exposed; E11.51 Type 2 diabetes mellitus with diabetic peripheral angiopathy without gangrene; M79.605 Pain in left leg; M20.42 Other hammer toe(s) (acquired), left foot; M20.41 Other hammer toe(s) (acquired), right foot; M21.42 Flat foot [pes planus] (acquired), left foot; Z79.82 Long term (current) use of aspirin
CPT/HCPCS: 11042; 11045

== ENCOUNTER 2020-03-15 08:40 | Outpatient (CLI) | payer MEDICARE, OTHER ==
[2020-03-15] MEDS ORDERED: BACI/NEOM/POLY B OINT PKT 1 UDPKT PACKET ONE (09:22)
[2020-03-15] MEDS ORDERED: UREA 10% -AHA 4% CREAM 57 GM TUBE ONE (09:27)
[2020-03-15] MEDS ORDERED: CLOTRIMAZOLE 1% 15 GM TUBE TP ONE (09:28)
== END 2020-03-15 23:59 | disposition home health service (06) ==
LOC: WOU 08:40
PROVIDERS: ATTEND Podiatrist Foot & Ankle Surgery
DX: I87.313 Chronic venous hypertension (idiopathic) with ulcer of bilateral lower extremity (principal); L97.322 Non-pressure chronic ulcer of left ankle with fat layer exposed; L97.822 Non-pressure chronic ulcer of other part of left lower leg with fat layer exposed; L97.518 Non-pressure chronic ulcer of other part of right foot with other specified severity; E11.51 Type 2 diabetes mellitus with diabetic peripheral angiopathy without gangrene; M20.42 Other hammer toe(s) (acquired), left foot; M20.41 Other hammer toe(s) (acquired), right foot; M21.42 Flat foot [pes planus] (acquired), left foot; Z79.82 Long term (current) use of aspirin; Z79.899 Other long term (current) drug therapy
CPT/HCPCS: 11042; 11045

== ENCOUNTER 2020-03-18 09:00 | Outpatient (CLI) | payer MEDICARE, OTHER ==
[2020-03-18] MEDS ORDERED: LIDOCAINE SOLN 4% 50 ML BOTTLE ONE (09:19)
== END 2020-03-18 23:59 | disposition home health service (06) ==
LOC: WOU 09:00
PROVIDERS: ATTEND Podiatrist Foot & Ankle Surgery
DX: I87.312 Chronic venous hypertension (idiopathic) with ulcer of left lower extremity (principal); L97.322 Non-pressure chronic ulcer of left ankle with fat layer exposed; L97.822 Non-pressure chronic ulcer of other part of left lower leg with fat layer exposed; E11.51 Type 2 diabetes mellitus with diabetic peripheral angiopathy without gangrene; M20.42 Other hammer toe(s) (acquired), left foot; M20.41 Other hammer toe(s) (acquired), right foot; M21.42 Flat foot [pes planus] (acquired), left foot; M79.605 Pain in left leg; Z79.82 Long term (current) use of aspirin; Z79.899 Other long term (current) drug therapy
CPT/HCPCS: 11042; 11045

== ENCOUNTER 2020-03-22 08:45 | Outpatient (CLI) | payer MEDICARE, OTHER ==
[2020-03-22] MEDS ORDERED: LIDOCAINE SOLN 4% 50 ML BOTTLE ONE (08:47)
[2020-03-22] MEDS ORDERED: UREA 10% -AHA 4% CREAM 57 GM TUBE ONE (09:22)
[2020-03-22] MEDS ORDERED: CLOTRIMAZOLE 1% 15 GM TUBE TP ONE (09:23)
== END 2020-03-22 23:59 | disposition home health service (06) ==
LOC: WOU 08:45
PROVIDERS: ATTEND Podiatrist Foot & Ankle Surgery
DX: I87.312 Chronic venous hypertension (idiopathic) with ulcer of left lower extremity (principal); L97.312 Non-pressure chronic ulcer of right ankle with fat layer exposed; L97.822 Non-pressure chronic ulcer of other part of left lower leg with fat layer exposed; M20.42 Other hammer toe(s) (acquired), left foot; M20.41 Other hammer toe(s) (acquired), right foot; M21.42 Flat foot [pes planus] (acquired), left foot; E11.51 Type 2 diabetes mellitus with diabetic peripheral angiopathy without gangrene; Z79.82 Long term (current) use of aspirin; Z79.899 Other long term (current) drug therapy; I10 Essential (primary) hypertension
CPT/HCPCS: 11042; 11045

== ENCOUNTER 2020-03-25 09:00 | Outpatient (CLI) | payer MEDICARE, OTHER ==
[2020-03-25] MEDS ORDERED: LIDOCAINE SOLN 4% 50 ML BOTTLE ONE (09:17)
[2020-03-25] MEDS ORDERED: Z GUARD REMEDY 2 OZ OINT TP ONE (09:34)
== END 2020-03-25 23:59 | disposition home health service (06) ==
LOC: WOU 09:00
PROVIDERS: ATTEND Podiatrist Foot & Ankle Surgery
DX: I87.312 Chronic venous hypertension (idiopathic) with ulcer of left lower extremity (principal); L97.322 Non-pressure chronic ulcer of left ankle with fat layer exposed; L97.822 Non-pressure chronic ulcer of other part of left lower leg with fat layer exposed; E11.51 Type 2 diabetes mellitus with diabetic peripheral angiopathy without gangrene; M20.42 Other hammer toe(s) (acquired), left foot; M20.41 Other hammer toe(s) (acquired), right foot; M21.42 Flat foot [pes planus] (acquired), left foot; M79.605 Pain in left leg; Z79.82 Long term (current) use of aspirin; Z79.899 Other long term (current) drug therapy
CPT/HCPCS: 11042; 11045

== ENCOUNTER 2020-03-29 08:55 | Outpatient (CLI) | payer MEDICARE, OTHER ==
[2020-03-29] MEDS ORDERED: LIDOCAINE SOLN 4% 50 ML BOTTLE ONE (09:30)
== END 2020-03-29 23:59 | disposition home health service (06) ==
LOC: WOU 08:55
PROVIDERS: ATTEND Podiatrist Foot & Ankle Surgery
DX: I87.312 Chronic venous hypertension (idiopathic) with ulcer of left lower extremity (principal); L97.322 Non-pressure chronic ulcer of left ankle with fat layer exposed; L97.822 Non-pressure chronic ulcer of other part of left lower leg with fat layer exposed; E11.51 Type 2 diabetes mellitus with diabetic peripheral angiopathy without gangrene; M79.605 Pain in left leg; M20.42 Other hammer toe(s) (acquired), left foot; M20.41 Other hammer toe(s) (acquired), right foot; M21.42 Flat foot [pes planus] (acquired), left foot; Z79.82 Long term (current) use of aspirin; Z79.899 Other long term (current) drug therapy
CPT/HCPCS: 11042; 11045; A6253

== ENCOUNTER 2020-04-01 09:01 | Outpatient (CLI) | payer MEDICARE, OTHER ==
[2020-04-01] MEDS ORDERED: Z GUARD REMEDY 2 OZ OINT TP ONE (11:56)
== END 2020-04-01 23:59 | disposition home health service (06) ==
LOC: WOU 09:01
PROVIDERS: ATTEND Podiatrist Foot & Ankle Surgery
DX: I87.312 Chronic venous hypertension (idiopathic) with ulcer of left lower extremity (principal); L97.322 Non-pressure chronic ulcer of left ankle with fat layer exposed; L97.822 Non-pressure chronic ulcer of other part of left lower leg with fat layer exposed; E11.51 Type 2 diabetes mellitus with diabetic peripheral angiopathy without gangrene; M20.42 Other hammer toe(s) (acquired), left foot; M20.41 Other hammer toe(s) (acquired), right foot; M21.42 Flat foot [pes planus] (acquired), left foot; M79.605 Pain in left leg; Z79.82 Long term (current) use of aspirin; Z79.899 Other long term (current) drug therapy
CPT/HCPCS: 11042; 11045; A6253

== ENCOUNTER 2020-04-05 08:47 | Outpatient (CLI) | payer MEDICARE, OTHER ==
[2020-04-05] MEDS ORDERED: LIDOCAINE SOLN 4% 50 ML BOTTLE ONE (09:06)
[2020-04-05] MEDS ORDERED: UREA 10% -AHA 4% CREAM 57 GM TUBE ONE (09:18)
[2020-04-05] MEDS ORDERED: CLOTRIMAZOLE 1% 15 GM TUBE TP ONE (09:19)
[2020-04-05] MEDS ORDERED: Z GUARD REMEDY 2 OZ OINT TP ONE (09:29)
== END 2020-04-05 23:59 | disposition home health service (06) ==
LOC: WOU 08:47
PROVIDERS: ATTEND Podiatrist Foot & Ankle Surgery
DX: I87.312 Chronic venous hypertension (idiopathic) with ulcer of left lower extremity (principal); L97.322 Non-pressure chronic ulcer of left ankle with fat layer exposed; L97.822 Non-pressure chronic ulcer of other part of left lower leg with fat layer exposed; I73.9 Peripheral vascular disease, unspecified; M20.42 Other hammer toe(s) (acquired), left foot; M20.41 Other hammer toe(s) (acquired), right foot; M21.42 Flat foot [pes planus] (acquired), left foot; M79.605 Pain in left leg; Z79.82 Long term (current) use of aspirin; Z79.899 Other long term (current) drug therapy
CPT/HCPCS: 11042; 11045; A6253

== ENCOUNTER 2020-04-08 09:30 | Outpatient (CLI) | payer MEDICARE, OTHER ==
[2020-04-08] MEDS ORDERED: LIDOCAINE SOLN 4% 50 ML BOTTLE ONE (09:44)
== END 2020-04-08 23:59 | disposition home health service (06) ==
LOC: WOU 09:30
PROVIDERS: ATTEND Podiatrist Foot & Ankle Surgery
DX: I87.312 Chronic venous hypertension (idiopathic) with ulcer of left lower extremity (principal); L97.322 Non-pressure chronic ulcer of left ankle with fat layer exposed; L97.822 Non-pressure chronic ulcer of other part of left lower leg with fat layer exposed; I73.9 Peripheral vascular disease, unspecified; M79.605 Pain in left leg; M20.42 Other hammer toe(s) (acquired), left foot; M20.41 Other hammer toe(s) (acquired), right foot; M21.42 Flat foot [pes planus] (acquired), left foot; I10 Essential (primary) hypertension; Z79.82 Long term (current) use of aspirin; Z79.899 Other long term (current) drug therapy
CPT/HCPCS: 11042; 11045; A6253

== ENCOUNTER 2020-04-12 09:00 | Outpatient (CLI) | payer MEDICARE, OTHER ==
[2020-04-12] MEDS ORDERED: LIDOCAINE SOLN 4% 50 ML BOTTLE ONE (09:31)
[2020-04-12] MEDS ORDERED: UREA 10% -AHA 4% CREAM 57 GM TUBE ONE (09:32)
[2020-04-12] MEDS ORDERED: Z GUARD REMEDY 2 OZ OINT TP ONE (09:33)
[2020-04-12] MEDS ORDERED: CLOTRIMAZOLE 1% 15 GM TUBE TP ONE (09:34)
== END 2020-04-12 23:59 | disposition home health service (06) ==
LOC: WOU 09:00
PROVIDERS: ATTEND Podiatrist Foot & Ankle Surgery
DX: I87.312 Chronic venous hypertension (idiopathic) with ulcer of left lower extremity (principal); L97.322 Non-pressure chronic ulcer of left ankle with fat layer exposed; L97.822 Non-pressure chronic ulcer of other part of left lower leg with fat layer exposed; I73.9 Peripheral vascular disease, unspecified; M20.42 Other hammer toe(s) (acquired), left foot; M20.41 Other hammer toe(s) (acquired), right foot; M21.42 Flat foot [pes planus] (acquired), left foot; M79.605 Pain in left leg; Z79.82 Long term (current) use of aspirin; Z79.899 Other long term (current) drug therapy
CPT/HCPCS: 11042; 11045; A6253

== ENCOUNTER 2020-04-15 08:49 | Outpatient (CLI) | payer MEDICARE, OTHER ==
[2020-04-15] MEDS ORDERED: LIDOCAINE SOLN 4% 50 ML BOTTLE ONE (09:18)
== END 2020-04-15 23:59 | disposition home health service (06) ==
LOC: WOU 08:49
PROVIDERS: ATTEND Podiatrist Foot & Ankle Surgery
DX: I87.312 Chronic venous hypertension (idiopathic) with ulcer of left lower extremity (principal); L97.322 Non-pressure chronic ulcer of left ankle with fat layer exposed; L97.822 Non-pressure chronic ulcer of other part of left lower leg with fat layer exposed; I73.9 Peripheral vascular disease, unspecified; M79.605 Pain in left leg; M20.42 Other hammer toe(s) (acquired), left foot; M20.41 Other hammer toe(s) (acquired), right foot; M21.42 Flat foot [pes planus] (acquired), left foot; Z79.82 Long term (current) use of aspirin; Z79.899 Other long term (current) drug therapy
CPT/HCPCS: 11042; 11045; A6253

== ENCOUNTER 2020-04-19 08:45 | Outpatient (CLI) | payer MEDICARE, OTHER ==
[2020-04-19] MEDS ORDERED: LIDOCAINE SOLN 4% 50 ML BOTTLE ONE (09:00)
[2020-04-19] MEDS ORDERED: UREA 10% -AHA 4% CREAM 57 GM TUBE ONE (10:03)
== END 2020-04-19 23:59 | disposition home health service (06) ==
LOC: WOU 08:45
PROVIDERS: ATTEND Podiatrist Foot & Ankle Surgery
DX: I87.312 Chronic venous hypertension (idiopathic) with ulcer of left lower extremity (principal); L97.322 Non-pressure chronic ulcer of left ankle with fat layer exposed; L97.822 Non-pressure chronic ulcer of other part of left lower leg with fat layer exposed; I73.9 Peripheral vascular disease, unspecified; M20.42 Other hammer toe(s) (acquired), left foot; M20.41 Other hammer toe(s) (acquired), right foot; M21.42 Flat foot [pes planus] (acquired), left foot; M79.605 Pain in left leg; Z79.82 Long term (current) use of aspirin; Z79.899 Other long term (current) drug therapy; I10 Essential (primary) hypertension
CPT/HCPCS: 11042; 11045; A6253

== ENCOUNTER 2020-04-22 09:00 | Outpatient (CLI) | payer MEDICARE, OTHER ==
[2020-04-22] MEDS ORDERED: LIDOCAINE SOLN 4% 50 ML BOTTLE ONE (09:18)
== END 2020-04-22 23:59 | disposition home health service (06) ==
LOC: WOU 09:00
PROVIDERS: ATTEND Podiatrist Foot & Ankle Surgery
DX: I87.312 Chronic venous hypertension (idiopathic) with ulcer of left lower extremity (principal); L97.322 Non-pressure chronic ulcer of left ankle with fat layer exposed; L97.822 Non-pressure chronic ulcer of other part of left lower leg with fat layer exposed; I73.9 Peripheral vascular disease, unspecified; M20.42 Other hammer toe(s) (acquired), left foot; M20.41 Other hammer toe(s) (acquired), right foot; M21.42 Flat foot [pes planus] (acquired), left foot; I10 Essential (primary) hypertension; M79.605 Pain in left leg; Z79.82 Long term (current) use of aspirin
CPT/HCPCS: 11042; 11045; A6253

== ENCOUNTER 2020-04-26 08:45 | Outpatient (CLI) | payer MEDICARE, OTHER ==
[2020-04-26] MEDS ORDERED: LIDOCAINE SOLN 4% 50 ML BOTTLE ONE (08:50)
[2020-04-26] MEDS ORDERED: UREA 10% -AHA 4% CREAM 57 GM TUBE ONE (09:25)
[2020-04-26] MEDS ORDERED: Z GUARD REMEDY 2 OZ OINT TP ONE (09:27)
[2020-04-26] MEDS ORDERED: CLOTRIMAZOLE 1% 15 GM TUBE TP ONE (09:27)
== END 2020-04-26 23:59 | disposition home health service (06) ==
LOC: WOU 08:45
PROVIDERS: ATTEND Podiatrist Foot & Ankle Surgery
DX: I87.312 Chronic venous hypertension (idiopathic) with ulcer of left lower extremity (principal); L97.322 Non-pressure chronic ulcer of left ankle with fat layer exposed; L97.822 Non-pressure chronic ulcer of other part of left lower leg with fat layer exposed; I73.9 Peripheral vascular disease, unspecified; M20.42 Other hammer toe(s) (acquired), left foot; M20.41 Other hammer toe(s) (acquired), right foot; M21.42 Flat foot [pes planus] (acquired), left foot; M79.605 Pain in left leg; Z79.82 Long term (current) use of aspirin; Z79.899 Other long term (current) drug therapy
CPT/HCPCS: 11042; 11045; A6253

== ENCOUNTER 2020-04-29 08:35 | Outpatient (CLI) | payer MEDICARE, OTHER ==
[2020-04-29] MEDS ORDERED: CLOTRIMAZOLE 1% 15 GM TUBE TP ONE (09:30)
[2020-04-29] MEDS ORDERED: Z GUARD REMEDY 2 OZ OINT TP ONE (09:30)
[2020-04-29] MEDS ORDERED: UREA 10% -AHA 4% CREAM 57 GM TUBE ONE (09:30)
== END 2020-04-29 23:59 | disposition home health service (06) ==
LOC: WOU 08:35
PROVIDERS: ATTEND Podiatrist Foot & Ankle Surgery
DX: I87.312 Chronic venous hypertension (idiopathic) with ulcer of left lower extremity (principal); L97.322 Non-pressure chronic ulcer of left ankle with fat layer exposed; L97.822 Non-pressure chronic ulcer of other part of left lower leg with fat layer exposed; I73.9 Peripheral vascular disease, unspecified; M20.42 Other hammer toe(s) (acquired), left foot; M20.41 Other hammer toe(s) (acquired), right foot; M21.42 Flat foot [pes planus] (acquired), left foot; M79.605 Pain in left leg; I10 Essential (primary) hypertension; Z79.82 Long term (current) use of aspirin; Z79.899 Other long term (current) drug therapy
CPT/HCPCS: 11042; 11045; A6253

== ENCOUNTER 2020-05-03 08:50 | Outpatient (CLI) | payer MEDICARE, OTHER ==
[2020-05-03] MEDS ORDERED: LIDOCAINE SOLN 4% 50 ML BOTTLE ONE (09:17)
[2020-05-03] MEDS ORDERED: UREA 10% -AHA 4% CREAM 57 GM TUBE ONE (09:51)
[2020-05-03] MEDS ORDERED: CLOTRIMAZOLE 1% 15 GM TUBE TP ONE (09:51)
[2020-05-03] MEDS ORDERED: Z GUARD REMEDY 2 OZ OINT TP ONE (09:52)
== END 2020-05-03 23:59 | disposition home health service (06) ==
LOC: WOU 08:50
PROVIDERS: ATTEND Podiatrist Foot & Ankle Surgery
DX: I87.312 Chronic venous hypertension (idiopathic) with ulcer of left lower extremity (principal); L97.322 Non-pressure chronic ulcer of left ankle with fat layer exposed; L97.822 Non-pressure chronic ulcer of other part of left lower leg with fat layer exposed; I73.9 Peripheral vascular disease, unspecified; M20.42 Other hammer toe(s) (acquired), left foot; M20.41 Other hammer toe(s) (acquired), right foot; M21.42 Flat foot [pes planus] (acquired), left foot; I10 Essential (primary) hypertension; M79.605 Pain in left leg; Z79.82 Long term (current) use of aspirin; Z79.899 Other long term (current) drug therapy
CPT/HCPCS: 11042; 11045; A6253

== ENCOUNTER → 2020-05-04 | Outpatient (CLI) | payer MEDICARE, OTHER | END | disposition home or self-care (01) | LOC: MSC 02:10 | PROVIDERS: ATTEND Anesthesiology | DX: M54.16 Radiculopathy, lumbar region (principal); M62.830 Muscle spasm of back; M40.299 Other kyphosis, site unspecified; G89.4 Chronic pain syndrome; M79.605 Pain in left leg; M79.604 Pain in right leg; I10 Essential (primary) hypertension; Z79.899 Other long term (current) drug therapy ==

== ENCOUNTER 2020-05-06 09:00 | Outpatient (CLI) | payer MEDICARE, OTHER ==
[2020-05-06] MEDS ORDERED: UREA 10% -AHA 4% CREAM 57 GM TUBE ONE (09:41)
[2020-05-06] MEDS ORDERED: CLOTRIMAZOLE 1% 15 GM TUBE TP ONE (09:41)
[2020-05-06] MEDS ORDERED: Z GUARD REMEDY 2 OZ OINT TP ONE (09:42)
== END 2020-05-06 23:59 | disposition home health service (06) ==
LOC: WOU 09:00
PROVIDERS: ATTEND Podiatrist Foot & Ankle Surgery
DX: I87.312 Chronic venous hypertension (idiopathic) with ulcer of left lower extremity (principal); L97.322 Non-pressure chronic ulcer of left ankle with fat layer exposed; L97.822 Non-pressure chronic ulcer of other part of left lower leg with fat layer exposed; I73.9 Peripheral vascular disease, unspecified; M20.42 Other hammer toe(s) (acquired), left foot; M20.41 Other hammer toe(s) (acquired), right foot; M21.42 Flat foot [pes planus] (acquired), left foot; M79.605 Pain in left leg; Z79.02 Long term (current) use of antithrombotics/antiplatelets; Z79.899 Other long term (current) drug therapy
CPT/HCPCS: 11042; 11045; A6253

== ENCOUNTER 2020-05-10 09:07 | Outpatient (CLI) | payer MEDICARE, OTHER ==
[2020-05-10] MEDS ORDERED: LIDOCAINE SOLN 4% 50 ML BOTTLE ONE (09:18)
== END 2020-05-10 23:59 | disposition home health service (06) ==
LOC: WOU 09:07
PROVIDERS: ATTEND Podiatrist Foot & Ankle Surgery
DX: I87.312 Chronic venous hypertension (idiopathic) with ulcer of left lower extremity (principal); L97.322 Non-pressure chronic ulcer of left ankle with fat layer exposed; L97.822 Non-pressure chronic ulcer of other part of left lower leg with fat layer exposed; I73.9 Peripheral vascular disease, unspecified; M20.42 Other hammer toe(s) (acquired), left foot; M20.41 Other hammer toe(s) (acquired), right foot; M21.42 Flat foot [pes planus] (acquired), left foot; M79.605 Pain in left leg; Z79.82 Long term (current) use of aspirin; Z79.899 Other long term (current) drug therapy
CPT/HCPCS: 11042; 11045; A6253

== ENCOUNTER 2020-05-13 09:00 | Outpatient (CLI) | payer MEDICARE, OTHER ==
[2020-05-13] MEDS ORDERED: LIDOCAINE SOLN 4% 50 ML BOTTLE ONE (09:11)
[2020-05-13] MEDS ORDERED: CLOTRIMAZOLE 1% 15 GM TUBE TP ONE (09:29)
== END 2020-05-13 23:59 | disposition home health service (06) ==
LOC: WOU 09:00
PROVIDERS: ATTEND Podiatrist Foot & Ankle Surgery
DX: I87.312 Chronic venous hypertension (idiopathic) with ulcer of left lower extremity (principal); L97.322 Non-pressure chronic ulcer of left ankle with fat layer exposed; L97.822 Non-pressure chronic ulcer of other part of left lower leg with fat layer exposed; I73.9 Peripheral vascular disease, unspecified; M20.42 Other hammer toe(s) (acquired), left foot; M20.41 Other hammer toe(s) (acquired), right foot; M21.42 Flat foot [pes planus] (acquired), left foot; M79.605 Pain in left leg; Z79.82 Long term (current) use of aspirin; Z79.899 Other long term (current) drug therapy
CPT/HCPCS: 11042; 11045; A6253

== ENCOUNTER 2020-05-17 08:15 | Outpatient (CLI) | payer MEDICARE, OTHER | END 2020-05-17 23:59 | disposition home health service (06) | LOC: WOU 08:15 | PROVIDERS: ATTEND Podiatrist Foot & Ankle Surgery | DX: I87.312 Chronic venous hypertension (idiopathic) with ulcer of left lower extremity (principal); L97.322 Non-pressure chronic ulcer of left ankle with fat layer exposed; L97.822 Non-pressure chronic ulcer of other part of left lower leg with fat layer exposed; I73.9 Peripheral vascular disease, unspecified; M79.605 Pain in left leg; M20.42 Other hammer toe(s) (acquired), left foot; M20.41 Other hammer toe(s) (acquired), right foot; M21.42 Flat foot [pes planus] (acquired), left foot; Z79.82 Long term (current) use of aspirin; Z79.899 Other long term (current) drug therapy | CPT/HCPCS: 11042; 11045; A6210; A6253; A6452 ==

== ENCOUNTER 2020-05-27 09:00 | Outpatient (CLI) | payer MEDICARE, OTHER ==
[2020-05-27] MEDS ORDERED: LIDOCAINE SOLN 4% 50 ML BOTTLE ONE (09:14)
== END 2020-05-27 23:59 | disposition home health service (06) ==
LOC: WOU 09:00
PROVIDERS: ATTEND Podiatrist Foot & Ankle Surgery
DX: I70.243 Atherosclerosis of native arteries of left leg with ulceration of ankle (principal); I70.242 Atherosclerosis of native arteries of left leg with ulceration of calf; L97.322 Non-pressure chronic ulcer of left ankle with fat layer exposed; L97.822 Non-pressure chronic ulcer of other part of left lower leg with fat layer exposed; I87.2 Venous insufficiency (chronic) (peripheral); M20.42 Other hammer toe(s) (acquired), left foot; M20.41 Other hammer toe(s) (acquired), right foot; M21.42 Flat foot [pes planus] (acquired), left foot; M79.605 Pain in left leg; Z79.82 Long term (current) use of aspirin; Z79.899 Other long term (current) drug therapy
CPT/HCPCS: 11042; 11045; A6253

== ENCOUNTER 2020-05-31 08:52 | Outpatient (CLI) | payer MEDICARE, OTHER ==
[2020-05-31] MEDS ORDERED: LIDOCAINE SOLN 4% 50 ML BOTTLE ONE (09:17)
[2020-05-31] MEDS ORDERED: UREA 10% -AHA 4% CREAM 57 GM TUBE ONE (09:25)
[2020-05-31] MEDS ORDERED: Z GUARD REMEDY 2 OZ OINT TP ONE (09:25)
[2020-05-31] MEDS ORDERED: CLOTRIMAZOLE 1% 15 GM TUBE TP ONE (09:26)
== END 2020-05-31 23:59 | disposition home health service (06) ==
LOC: WOU 08:52
PROVIDERS: ATTEND Podiatrist Foot & Ankle Surgery
DX: I87.312 Chronic venous hypertension (idiopathic) with ulcer of left lower extremity (principal); L97.322 Non-pressure chronic ulcer of left ankle with fat layer exposed; L97.822 Non-pressure chronic ulcer of other part of left lower leg with fat layer exposed; I73.9 Peripheral vascular disease, unspecified; M20.42 Other hammer toe(s) (acquired), left foot; M20.41 Other hammer toe(s) (acquired), right foot; M21.42 Flat foot [pes planus] (acquired), left foot; M79.605 Pain in left leg; Z79.82 Long term (current) use of aspirin; Z79.899 Other long term (current) drug therapy
CPT/HCPCS: 11042; 11045; A6253

== ENCOUNTER 2020-06-03 09:00 | Outpatient (CLI) | payer MEDICARE, OTHER ==
[2020-06-03] MEDS ORDERED: LIDOCAINE SOLN 4% 50 ML BOTTLE ONE (09:15)
[2020-06-03] MEDS ORDERED: Z GUARD REMEDY 2 OZ OINT TP ONE (09:52)
== END 2020-06-03 23:59 | disposition home health service (06) ==
LOC: WOU 09:00
PROVIDERS: ATTEND Podiatrist Foot & Ankle Surgery
DX: I87.312 Chronic venous hypertension (idiopathic) with ulcer of left lower extremity (principal); L97.322 Non-pressure chronic ulcer of left ankle with fat layer exposed; L97.822 Non-pressure chronic ulcer of other part of left lower leg with fat layer exposed; I73.9 Peripheral vascular disease, unspecified; M20.42 Other hammer toe(s) (acquired), left foot; M20.41 Other hammer toe(s) (acquired), right foot; M21.42 Flat foot [pes planus] (acquired), left foot; M79.605 Pain in left leg; Z79.82 Long term (current) use of aspirin; Z79.899 Other long term (current) drug therapy
CPT/HCPCS: 11042; 11045; A6253 ×2

== ENCOUNTER 2020-06-07 09:00 | Outpatient (CLI) | payer MEDICARE, OTHER ==
[2020-06-07] MEDS ORDERED: UREA 10% -AHA 4% CREAM 57 GM TUBE ONE (09:47)
[2020-06-07] MEDS ORDERED: Z GUARD REMEDY 2 OZ OINT TP ONE (09:47)
[2020-06-07] MEDS ORDERED: CLOTRIMAZOLE 1% 15 GM TUBE TP ONE (09:48)
== END 2020-06-07 23:59 | disposition home health service (06) ==
LOC: WOU 09:00
PROVIDERS: ATTEND Podiatrist Foot & Ankle Surgery
DX: I87.312 Chronic venous hypertension (idiopathic) with ulcer of left lower extremity (principal); L97.322 Non-pressure chronic ulcer of left ankle with fat layer exposed; L97.822 Non-pressure chronic ulcer of other part of left lower leg with fat layer exposed; I73.9 Peripheral vascular disease, unspecified; M20.42 Other hammer toe(s) (acquired), left foot; M20.41 Other hammer toe(s) (acquired), right foot; M21.42 Flat foot [pes planus] (acquired), left foot; Z79.82 Long term (current) use of aspirin; Z79.899 Other long term (current) drug therapy
CPT/HCPCS: 11042; 11045; A6253

== ENCOUNTER 2020-06-14 08:50 | Outpatient (CLI) | payer MEDICARE, OTHER | END 2020-06-14 23:59 | disposition home health service (06) | LOC: WOU 08:50 | PROVIDERS: ATTEND Podiatrist Foot & Ankle Surgery | DX: I87.312 Chronic venous hypertension (idiopathic) with ulcer of left lower extremity (principal); L97.322 Non-pressure chronic ulcer of left ankle with fat layer exposed; L97.822 Non-pressure chronic ulcer of other part of left lower leg with fat layer exposed; I73.9 Peripheral vascular disease, unspecified; M79.605 Pain in left leg; M20.42 Other hammer toe(s) (acquired), left foot; M20.41 Other hammer toe(s) (acquired), right foot; M21.42 Flat foot [pes planus] (acquired), left foot; Z79.82 Long term (current) use of aspirin; Z79.899 Other long term (current) drug therapy | CPT/HCPCS: 11042; 11045; A6253 ==

== ENCOUNTER 2020-06-28 08:55 | Outpatient (CLI) | payer MEDICARE, OTHER | END 2020-06-28 23:59 | disposition home health service (06) | LOC: WOU 08:55 | PROVIDERS: ATTEND Podiatrist Foot & Ankle Surgery | DX: I87.312 Chronic venous hypertension (idiopathic) with ulcer of left lower extremity (principal); L97.322 Non-pressure chronic ulcer of left ankle with fat layer exposed; L97.822 Non-pressure chronic ulcer of other part of left lower leg with fat layer exposed; I73.9 Peripheral vascular disease, unspecified; M20.42 Other hammer toe(s) (acquired), left foot; M20.41 Other hammer toe(s) (acquired), right foot; M21.42 Flat foot [pes planus] (acquired), left foot; M79.605 Pain in left leg; Z79.82 Long term (current) use of aspirin; Z79.899 Other long term (current) drug therapy | CPT/HCPCS: 11042; 11045; A6253 ×2 ==

== ENCOUNTER 2020-07-01 09:00 | Outpatient (CLI) | payer MEDICARE, OTHER ==
[2020-07-01] MEDS ORDERED: LIDOCAINE SOLN 4% 50 ML BOTTLE ONE ×2 (09:11→09:36)
[2020-07-01] MEDS ORDERED: Z GUARD REMEDY 2 OZ OINT TP ONE (09:37)
[2020-07-01] MEDS ORDERED: CLOTRIMAZOLE 1% 15 GM TUBE TP ONE (09:38)
[2020-07-01] MEDS ORDERED: UREA 10% -AHA 4% CREAM 57 GM TUBE ONE (09:38)
== END 2020-07-01 23:59 | disposition home health service (06) ==
LOC: WOU 09:00
PROVIDERS: ATTEND Podiatrist Foot & Ankle Surgery
DX: I87.312 Chronic venous hypertension (idiopathic) with ulcer of left lower extremity (principal); L97.322 Non-pressure chronic ulcer of left ankle with fat layer exposed; L97.822 Non-pressure chronic ulcer of other part of left lower leg with fat layer exposed; I73.9 Peripheral vascular disease, unspecified; M20.42 Other hammer toe(s) (acquired), left foot; M20.41 Other hammer toe(s) (acquired), right foot; M21.42 Flat foot [pes planus] (acquired), left foot; M79.605 Pain in left leg; Z79.82 Long term (current) use of aspirin; Z79.899 Other long term (current) drug therapy
CPT/HCPCS: 11042; 11045; A6253

== ENCOUNTER 2020-07-05 09:00 | Outpatient (CLI) | payer MEDICARE, OTHER ==
[2020-07-05] MEDS ORDERED: UREA 10% -AHA 4% CREAM 57 GM TUBE ONE (09:25)
[2020-07-05] MEDS ORDERED: CLOTRIMAZOLE 1% 15 GM TUBE TP ONE (09:25)
[2020-07-05] MEDS ORDERED: Z GUARD REMEDY 2 OZ OINT TP ONE (09:26)
== END 2020-07-05 23:59 | disposition home health service (06) ==
LOC: WOU 09:00
PROVIDERS: ATTEND Podiatrist Foot & Ankle Surgery
DX: I87.312 Chronic venous hypertension (idiopathic) with ulcer of left lower extremity (principal); L97.322 Non-pressure chronic ulcer of left ankle with fat layer exposed; L97.822 Non-pressure chronic ulcer of other part of left lower leg with fat layer exposed; I73.9 Peripheral vascular disease, unspecified; M20.42 Other hammer toe(s) (acquired), left foot; M20.41 Other hammer toe(s) (acquired), right foot; M21.42 Flat foot [pes planus] (acquired), left foot; M79.605 Pain in left leg; Z79.82 Long term (current) use of aspirin; Z79.899 Other long term (current) drug therapy
CPT/HCPCS: 11042; 11045; A6253

== ENCOUNTER 2020-07-12 10:40 | Outpatient (CLI) | payer MEDICARE, OTHER ==
[2020-07-12] MEDS ORDERED: LIDOCAINE SOLN 4% 50 ML BOTTLE ONE (11:07)
[2020-07-12] MEDS ORDERED: CLOTRIMAZOLE 1% 15 GM TUBE TP ONE (11:08)
[2020-07-12] MEDS ORDERED: UREA 10% -AHA 4% CREAM 57 GM TUBE ONE (11:09)
[2020-07-12] MEDS ORDERED: Z GUARD REMEDY 2 OZ OINT TP ONE (11:09)
== END 2020-07-12 23:59 | disposition home health service (06) ==
LOC: WOU 10:40
PROVIDERS: ATTEND Podiatrist Foot & Ankle Surgery
DX: I87.312 Chronic venous hypertension (idiopathic) with ulcer of left lower extremity (principal); L97.322 Non-pressure chronic ulcer of left ankle with fat layer exposed; L97.822 Non-pressure chronic ulcer of other part of left lower leg with fat layer exposed; I73.9 Peripheral vascular disease, unspecified; M20.42 Other hammer toe(s) (acquired), left foot; M20.41 Other hammer toe(s) (acquired), right foot; M21.42 Flat foot [pes planus] (acquired), left foot; M79.605 Pain in left leg; Z79.82 Long term (current) use of aspirin
CPT/HCPCS: 11042; 11045; A6253

== ENCOUNTER 2020-07-22 08:48 | Outpatient (CLI) | payer MEDICARE, OTHER ==
[2020-07-22] MEDS ORDERED: LIDOCAINE SOLN 4% 50 ML BOTTLE ONE (09:23)
== END 2020-07-22 23:59 | disposition home health service (06) ==
LOC: WOU 08:48
PROVIDERS: ATTEND Podiatrist Foot & Ankle Surgery
DX: I87.312 Chronic venous hypertension (idiopathic) with ulcer of left lower extremity (principal); L97.322 Non-pressure chronic ulcer of left ankle with fat layer exposed; L97.522 Non-pressure chronic ulcer of other part of left foot with fat layer exposed; I73.9 Peripheral vascular disease, unspecified; M21.42 Flat foot [pes planus] (acquired), left foot; M20.42 Other hammer toe(s) (acquired), left foot; M20.41 Other hammer toe(s) (acquired), right foot; M79.605 Pain in left leg; I10 Essential (primary) hypertension; Z79.82 Long term (current) use of aspirin; Z79.899 Other long term (current) drug therapy
CPT/HCPCS: 11042; 11045; A6253

== ENCOUNTER 2020-07-29 09:33 | Outpatient (CLI) | payer OTHER ==
[2020-07-29] MEDS ORDERED: Z GUARD REMEDY 2 OZ OINT TP ONE (09:55)
[2020-07-29] MEDS ORDERED: CLOTRIMAZOLE 1% 15 GM TUBE TP ONE (09:55)
[2020-07-29] MEDS ORDERED: LIDOCAINE SOLN 4% 50 ML BOTTLE ONE (09:55)
[2020-07-29] MEDS ORDERED: UREA 10% -AHA 4% CREAM 57 GM TUBE ONE (09:56)
== END 2020-07-29 23:59 | disposition home health service (06) ==
LOC: WOU 09:33
PROVIDERS: ATTEND Podiatrist Foot & Ankle Surgery
DX: I87.312 Chronic venous hypertension (idiopathic) with ulcer of left lower extremity (principal); L97.822 Non-pressure chronic ulcer of other part of left lower leg with fat layer exposed; L97.322 Non-pressure chronic ulcer of left ankle with fat layer exposed; I73.9 Peripheral vascular disease, unspecified; M79.605 Pain in left leg; M20.42 Other hammer toe(s) (acquired), left foot; M20.41 Other hammer toe(s) (acquired), right foot; M21.42 Flat foot [pes planus] (acquired), left foot; Z79.82 Long term (current) use of aspirin; Z79.899 Other long term (current) drug therapy
CPT/HCPCS: 11042; 11045; A6253

== ENCOUNTER 2020-08-02 08:51 | Outpatient (CLI) | payer OTHER ==
[2020-08-02] MEDS ORDERED: LIDOCAINE SOLN 4% 50 ML BOTTLE ONE (09:05)
[2020-08-02] MEDS ORDERED: CLOTRIMAZOLE 1% 15 GM TUBE TP ONE (10:07)
[2020-08-02] MEDS ORDERED: UREA 10% -AHA 4% CREAM 57 GM TUBE ONE (10:07)
[2020-08-02] MEDS ORDERED: Z GUARD REMEDY 2 OZ OINT TP ONE (10:07)
== END 2020-08-02 23:59 | disposition home health service (06) ==
LOC: WOU 08:51
PROVIDERS: ATTEND Podiatrist Foot & Ankle Surgery
DX: I87.312 Chronic venous hypertension (idiopathic) with ulcer of left lower extremity (principal); L97.322 Non-pressure chronic ulcer of left ankle with fat layer exposed; L97.822 Non-pressure chronic ulcer of other part of left lower leg with fat layer exposed; I73.9 Peripheral vascular disease, unspecified; M20.42 Other hammer toe(s) (acquired), left foot; M20.41 Other hammer toe(s) (acquired), right foot; M21.42 Flat foot [pes planus] (acquired), left foot; M79.605 Pain in left leg; Z79.82 Long term (current) use of aspirin; Z79.899 Other long term (current) drug therapy; I10 Essential (primary) hypertension
CPT/HCPCS: 11042; 11045; A6253 ×2; A6452

== ENCOUNTER 2020-08-12 08:55 | Outpatient (CLI) | payer MEDICARE, OTHER ==
[2020-08-12] MEDS ORDERED: LIDOCAINE SOLN 4% 50 ML BOTTLE ONE (09:07)
[2020-08-12] MEDS ORDERED: Z GUARD REMEDY 2 OZ OINT TP ONE (09:48)
[2020-08-12] MEDS ORDERED: CLOTRIMAZOLE 1% 15 GM TUBE TP ONE (09:48)
[2020-08-12] MEDS ORDERED: UREA 10% -AHA 4% CREAM 57 GM TUBE ONE (09:49)
== END 2020-08-12 23:59 | disposition home health service (06) ==
LOC: WOU 08:55
PROVIDERS: ATTEND Podiatrist Foot & Ankle Surgery
DX: I87.312 Chronic venous hypertension (idiopathic) with ulcer of left lower extremity (principal); L97.322 Non-pressure chronic ulcer of left ankle with fat layer exposed; L97.822 Non-pressure chronic ulcer of other part of left lower leg with fat layer exposed; I73.9 Peripheral vascular disease, unspecified; M79.605 Pain in left leg; M20.42 Other hammer toe(s) (acquired), left foot; M20.41 Other hammer toe(s) (acquired), right foot; M21.42 Flat foot [pes planus] (acquired), left foot; Z79.82 Long term (current) use of aspirin; Z79.899 Other long term (current) drug therapy
CPT/HCPCS: 11042; 11045; A6253

== ENCOUNTER 2020-08-16 09:00 | Outpatient (CLI) | payer MEDICARE, OTHER ==
[2020-08-16] MEDS ORDERED: LIDOCAINE SOLN 4% 50 ML BOTTLE ONE (09:04)
[2020-08-16] MEDS ORDERED: UREA 10% -AHA 4% CREAM 57 GM TUBE ONE (09:50)
[2020-08-16] MEDS ORDERED: Z GUARD REMEDY 2 OZ OINT TP ONE (09:50)
[2020-08-16] MEDS ORDERED: CLOTRIMAZOLE 1% 15 GM TUBE TP ONE (09:51)
== END 2020-08-16 23:59 | disposition home health service (06) ==
LOC: WOU 09:00
PROVIDERS: ATTEND Podiatrist Foot & Ankle Surgery
DX: I87.312 Chronic venous hypertension (idiopathic) with ulcer of left lower extremity (principal); L97.322 Non-pressure chronic ulcer of left ankle with fat layer exposed; L97.822 Non-pressure chronic ulcer of other part of left lower leg with fat layer exposed; I73.9 Peripheral vascular disease, unspecified; M20.42 Other hammer toe(s) (acquired), left foot; M20.41 Other hammer toe(s) (acquired), right foot; M21.42 Flat foot [pes planus] (acquired), left foot; M79.605 Pain in left leg; Z79.82 Long term (current) use of aspirin; Z79.899 Other long term (current) drug therapy; I10 Essential (primary) hypertension
CPT/HCPCS: 11042; 11045; A6253

== ENCOUNTER 2020-08-19 09:00 | Outpatient (CLI) | payer MEDICARE, OTHER ==
[2020-08-19] MEDS ORDERED: LIDOCAINE SOLN 4% 50 ML BOTTLE ONE (09:12)
[2020-08-19] MEDS ORDERED: CLOTRIMAZOLE 1% 15 GM TUBE TP ONE (09:27)
[2020-08-19] MEDS ORDERED: UREA 10% -AHA 4% CREAM 57 GM TUBE ONE (09:28)
[2020-08-19] MEDS ORDERED: Z GUARD REMEDY 2 OZ OINT TP ONE (09:28)
== END 2020-08-19 23:59 | disposition home health service (06) ==
LOC: WOU 09:00
PROVIDERS: ATTEND Podiatrist Foot & Ankle Surgery
DX: I87.312 Chronic venous hypertension (idiopathic) with ulcer of left lower extremity (principal); L97.322 Non-pressure chronic ulcer of left ankle with fat layer exposed; L97.822 Non-pressure chronic ulcer of other part of left lower leg with fat layer exposed; I73.9 Peripheral vascular disease, unspecified; M79.605 Pain in left leg; M20.42 Other hammer toe(s) (acquired), left foot; M20.41 Other hammer toe(s) (acquired), right foot; M21.42 Flat foot [pes planus] (acquired), left foot; Z79.82 Long term (current) use of aspirin; Z79.899 Other long term (current) drug therapy
CPT/HCPCS: 11042; 11045; A6253

== ENCOUNTER 2020-08-23 09:00 | Outpatient (CLI) | payer MEDICARE, OTHER ==
[2020-08-23] MEDS ORDERED: CLOTRIMAZOLE 1% 15 GM TUBE TP ONE (09:31)
[2020-08-23] MEDS ORDERED: UREA 10% -AHA 4% CREAM 57 GM TUBE ONE (09:31)
[2020-08-23] MEDS ORDERED: Z GUARD REMEDY 2 OZ OINT TP ONE (09:32)
== END 2020-08-23 23:59 | disposition home health service (06) ==
LOC: WOU 09:00
PROVIDERS: ATTEND Podiatrist Foot & Ankle Surgery
DX: I87.312 Chronic venous hypertension (idiopathic) with ulcer of left lower extremity (principal); L97.822 Non-pressure chronic ulcer of other part of left lower leg with fat layer exposed; L97.322 Non-pressure chronic ulcer of left ankle with fat layer exposed; I73.9 Peripheral vascular disease, unspecified; M20.42 Other hammer toe(s) (acquired), left foot; M20.41 Other hammer toe(s) (acquired), right foot; M21.42 Flat foot [pes planus] (acquired), left foot; M79.605 Pain in left leg; I10 Essential (primary) hypertension; L84 Corns and callosities; Z79.82 Long term (current) use of aspirin; Z79.899 Other long term (current) drug therapy
CPT/HCPCS: 11042; 11045; A6197; A6253

== ENCOUNTER 2020-08-26 09:00 | Outpatient (CLI) | payer MEDICARE, OTHER ==
[2020-08-26] MEDS ORDERED: CLOTRIMAZOLE 1% 15 GM TUBE TP ONE (09:25)
[2020-08-26] MEDS ORDERED: UREA 10% -AHA 4% CREAM 57 GM TUBE ONE (09:26)
== END 2020-08-26 23:59 | disposition home health service (06) ==
LOC: WOU 09:00
PROVIDERS: ATTEND Podiatrist Foot & Ankle Surgery
DX: I87.312 Chronic venous hypertension (idiopathic) with ulcer of left lower extremity (principal); L97.322 Non-pressure chronic ulcer of left ankle with fat layer exposed; L97.822 Non-pressure chronic ulcer of other part of left lower leg with fat layer exposed; I73.9 Peripheral vascular disease, unspecified; M20.42 Other hammer toe(s) (acquired), left foot; M20.41 Other hammer toe(s) (acquired), right foot; M21.42 Flat foot [pes planus] (acquired), left foot; M79.605 Pain in left leg; Z79.82 Long term (current) use of aspirin; Z79.899 Other long term (current) drug therapy
CPT/HCPCS: 11042; 11045; A6197; A6253

== ENCOUNTER 2020-08-30 09:00 | Outpatient (CLI) | payer MEDICARE, OTHER ==
[2020-08-30] MEDS ORDERED: LIDOCAINE SOLN 4% 50 ML BOTTLE ONE (09:13)
[2020-08-30] MEDS ORDERED: CLOTRIMAZOLE 1% 15 GM TUBE TP ONE (09:14)
[2020-08-30] MEDS ORDERED: UREA 10% -AHA 4% CREAM 57 GM TUBE ONE (09:14)
== END 2020-08-30 23:59 | disposition home health service (06) ==
LOC: WOU 09:00
PROVIDERS: ATTEND Podiatrist Foot & Ankle Surgery
DX: I87.312 Chronic venous hypertension (idiopathic) with ulcer of left lower extremity (principal); L97.322 Non-pressure chronic ulcer of left ankle with fat layer exposed; L97.522 Non-pressure chronic ulcer of other part of left foot with fat layer exposed; I73.9 Peripheral vascular disease, unspecified; M79.605 Pain in left leg; M20.42 Other hammer toe(s) (acquired), left foot; M20.41 Other hammer toe(s) (acquired), right foot; M21.42 Flat foot [pes planus] (acquired), left foot; I10 Essential (primary) hypertension; Z79.82 Long term (current) use of aspirin; Z79.899 Other long term (current) drug therapy
CPT/HCPCS: 11042; 11045; A6197; A6253

== ENCOUNTER 2020-09-02 09:00 | Outpatient (CLI) | payer MEDICARE, OTHER ==
[2020-09-02] MEDS ORDERED: LIDOCAINE SOLN 4% 50 ML BOTTLE ONE (09:06)
[2020-09-02] MEDS ORDERED: UREA 10% -AHA 4% CREAM 57 GM TUBE ONE (10:44)
[2020-09-02] MEDS ORDERED: CLOTRIMAZOLE 1% 15 GM TUBE TP ONE (10:44)
== END 2020-09-02 23:59 | disposition home health service (06) ==
LOC: WOU 09:00
PROVIDERS: ATTEND Podiatrist Foot & Ankle Surgery
DX: I87.312 Chronic venous hypertension (idiopathic) with ulcer of left lower extremity (principal); L97.822 Non-pressure chronic ulcer of other part of left lower leg with fat layer exposed; L97.322 Non-pressure chronic ulcer of left ankle with fat layer exposed; I73.9 Peripheral vascular disease, unspecified; M79.605 Pain in left leg; M20.42 Other hammer toe(s) (acquired), left foot; M20.41 Other hammer toe(s) (acquired), right foot; M21.42 Flat foot [pes planus] (acquired), left foot; Z79.82 Long term (current) use of aspirin; Z79.899 Other long term (current) drug therapy
CPT/HCPCS: 11042; 11045; A6197; A6253

== ENCOUNTER 2020-09-06 08:50 | Outpatient (CLI) | payer MEDICARE, OTHER ==
[2020-09-06] MEDS ORDERED: LIDOCAINE SOLN 4% 50 ML BOTTLE ONE (08:53)
[2020-09-06] MEDS ORDERED: UREA 10% -AHA 4% CREAM 57 GM TUBE ONE (09:03)
[2020-09-06] MEDS ORDERED: CLOTRIMAZOLE 1% 15 GM TUBE TP ONE (09:03)
== END 2020-09-06 23:59 | disposition home health service (06) ==
LOC: WOU 08:50
PROVIDERS: ATTEND Podiatrist Foot & Ankle Surgery
DX: I87.312 Chronic venous hypertension (idiopathic) with ulcer of left lower extremity (principal); L97.322 Non-pressure chronic ulcer of left ankle with fat layer exposed; L97.822 Non-pressure chronic ulcer of other part of left lower leg with fat layer exposed; I10 Essential (primary) hypertension; I73.9 Peripheral vascular disease, unspecified; M20.42 Other hammer toe(s) (acquired), left foot; M20.41 Other hammer toe(s) (acquired), right foot; M21.42 Flat foot [pes planus] (acquired), left foot; M79.605 Pain in left leg; Z79.82 Long term (current) use of aspirin; Z79.899 Other long term (current) drug therapy
CPT/HCPCS: 11042; 11045; A6197; A6253

== ENCOUNTER 2020-09-09 08:50 | Outpatient (CLI) | payer MEDICARE, OTHER ==
[2020-09-09] MEDS ORDERED: LIDOCAINE SOLN 4% 50 ML BOTTLE ONE (08:54)
[2020-09-09] MEDS ORDERED: CLOTRIMAZOLE 1% 15 GM TUBE TP ONE (09:35)
[2020-09-09] MEDS ORDERED: UREA 10% -AHA 4% CREAM 57 GM TUBE ONE (09:35)
== END 2020-09-09 23:59 | disposition home health service (06) ==
LOC: WOU 08:50
PROVIDERS: ATTEND Podiatrist Foot & Ankle Surgery
DX: I87.312 Chronic venous hypertension (idiopathic) with ulcer of left lower extremity (principal); L97.322 Non-pressure chronic ulcer of left ankle with fat layer exposed; L97.822 Non-pressure chronic ulcer of other part of left lower leg with fat layer exposed; I73.9 Peripheral vascular disease, unspecified; M79.605 Pain in left leg; M20.42 Other hammer toe(s) (acquired), left foot; M20.41 Other hammer toe(s) (acquired), right foot; M21.42 Flat foot [pes planus] (acquired), left foot; Z79.82 Long term (current) use of aspirin; Z79.899 Other long term (current) drug therapy
CPT/HCPCS: A6253; C5271; Q4117

== ENCOUNTER 2020-09-16 08:35 | Outpatient (CLI) | payer MEDICARE, OTHER ==
[2020-09-16] MEDS ORDERED: CLOTRIMAZOLE 1% 15 GM TUBE TP ONE (09:29)
== END 2020-09-16 23:59 | disposition home health service (06) ==
LOC: WOU 08:35
PROVIDERS: ATTEND Podiatrist Foot & Ankle Surgery
DX: I87.312 Chronic venous hypertension (idiopathic) with ulcer of left lower extremity (principal); L97.822 Non-pressure chronic ulcer of other part of left lower leg with fat layer exposed; I73.9 Peripheral vascular disease, unspecified; M20.42 Other hammer toe(s) (acquired), left foot; M20.41 Other hammer toe(s) (acquired), right foot; M21.42 Flat foot [pes planus] (acquired), left foot; M79.605 Pain in left leg; I10 Essential (primary) hypertension; Z79.82 Long term (current) use of aspirin; Z79.899 Other long term (current) drug therapy
CPT/HCPCS: 11042; 11045; A6253

== ENCOUNTER 2020-09-20 08:45 | Outpatient (CLI) | payer MEDICARE, OTHER ==
[2020-09-20] MEDS ORDERED: LIDOCAINE SOLN 4% 50 ML BOTTLE ONE (08:46)
[2020-09-20] MEDS ORDERED: UREA 10% -AHA 4% CREAM 57 GM TUBE ONE (08:48)
[2020-09-20] MEDS ORDERED: CLOTRIMAZOLE 1% 15 GM TUBE TP ONE (08:48)
== END 2020-09-20 23:59 | disposition home health service (06) ==
LOC: WOU 08:45
PROVIDERS: ATTEND Podiatrist Foot & Ankle Surgery
DX: I87.312 Chronic venous hypertension (idiopathic) with ulcer of left lower extremity (principal); L97.822 Non-pressure chronic ulcer of other part of left lower leg with fat layer exposed; I73.9 Peripheral vascular disease, unspecified; M20.42 Other hammer toe(s) (acquired), left foot; M20.41 Other hammer toe(s) (acquired), right foot; M21.42 Flat foot [pes planus] (acquired), left foot; Z79.82 Long term (current) use of aspirin; Z79.899 Other long term (current) drug therapy
CPT/HCPCS: 11042; 11045; A6253

== ENCOUNTER 2020-09-23 08:45 | Outpatient (CLI) | payer MEDICARE, OTHER ==
[2020-09-23] MEDS ORDERED: UREA 10% -AHA 4% CREAM 57 GM TUBE ONE (09:47)
[2020-09-23] MEDS ORDERED: CLOTRIMAZOLE 1% 15 GM TUBE TP ONE (09:47)
== END 2020-09-23 23:59 | disposition home health service (06) ==
LOC: WOU 08:45
PROVIDERS: ATTEND Podiatrist Foot & Ankle Surgery
DX: I87.312 Chronic venous hypertension (idiopathic) with ulcer of left lower extremity (principal); L97.822 Non-pressure chronic ulcer of other part of left lower leg with fat layer exposed; I73.9 Peripheral vascular disease, unspecified; M20.42 Other hammer toe(s) (acquired), left foot; M20.41 Other hammer toe(s) (acquired), right foot; M21.42 Flat foot [pes planus] (acquired), left foot; M79.605 Pain in left leg; Z79.82 Long term (current) use of aspirin; Z79.899 Other long term (current) drug therapy
CPT/HCPCS: 11042; 11045; A6253 ×2

== ENCOUNTER 2020-09-27 08:55 | Outpatient (CLI) | payer MEDICARE, OTHER ==
[2020-09-27] MEDS ORDERED: LIDOCAINE SOLN 4% 50 ML BOTTLE ONE (09:04)
[2020-09-27] MEDS ORDERED: UREA 10% -AHA 4% CREAM 57 GM TUBE ONE (09:42)
[2020-09-27] MEDS ORDERED: CLOTRIMAZOLE 1% 15 GM TUBE TP ONE (09:42)
[2020-09-27] MEDS ORDERED: BACITRACIN ZINC OINT PACKET 1 EA PACKET TP ONE (10:06)
== END 2020-09-27 23:59 | disposition home health service (06) ==
LOC: WOU 08:55
PROVIDERS: ATTEND Podiatrist Foot & Ankle Surgery
DX: I87.312 Chronic venous hypertension (idiopathic) with ulcer of left lower extremity (principal); L97.822 Non-pressure chronic ulcer of other part of left lower leg with fat layer exposed; I73.9 Peripheral vascular disease, unspecified; M20.42 Other hammer toe(s) (acquired), left foot; M20.41 Other hammer toe(s) (acquired), right foot; M21.42 Flat foot [pes planus] (acquired), left foot; M79.605 Pain in left leg; I10 Essential (primary) hypertension; Z79.82 Long term (current) use of aspirin; Z79.899 Other long term (current) drug therapy
CPT/HCPCS: 11042; 11045; A6253

== ENCOUNTER 2020-09-30 09:00 | Outpatient (CLI) | payer MEDICARE, OTHER ==
[2020-09-30] MEDS ORDERED: LIDOCAINE SOLN 4% 50 ML BOTTLE ONE (09:28)
[2020-09-30] MEDS ORDERED: UREA 10% -AHA 4% CREAM 57 GM TUBE ONE (09:29)
[2020-09-30] MEDS ORDERED: CLOTRIMAZOLE 1% 15 GM TUBE TP ONE (09:30)
== END 2020-09-30 23:59 | disposition home health service (06) ==
LOC: WOU 09:00
PROVIDERS: ATTEND Podiatrist Foot & Ankle Surgery
DX: I87.312 Chronic venous hypertension (idiopathic) with ulcer of left lower extremity (principal); L97.322 Non-pressure chronic ulcer of left ankle with fat layer exposed; L97.822 Non-pressure chronic ulcer of other part of left lower leg with fat layer exposed; I73.9 Peripheral vascular disease, unspecified; M20.42 Other hammer toe(s) (acquired), left foot; M20.41 Other hammer toe(s) (acquired), right foot; M21.42 Flat foot [pes planus] (acquired), left foot; M79.605 Pain in left leg; Z79.82 Long term (current) use of aspirin; Z79.899 Other long term (current) drug therapy
CPT/HCPCS: 11042; 11045; A6253

== ENCOUNTER 2020-10-04 08:50 | Outpatient (CLI) | payer MEDICARE, OTHER ==
[2020-10-04] MEDS ORDERED: LIDOCAINE SOLN 4% 50 ML BOTTLE ONE (09:13)
[2020-10-04] MEDS ORDERED: CLOTRIMAZOLE 1% 15 GM TUBE TP ONE ×2 (09:14→09:28)
[2020-10-04] MEDS ORDERED: UREA 10% -AHA 4% CREAM 57 GM TUBE ONE (09:14)
[2020-10-04] MEDS ORDERED: HYDROCORTISONE 1% CREAM 28.35 GM TUBE TP ONE ×2 (09:15→09:27)
== END 2020-10-04 23:59 | disposition home health service (06) ==
LOC: WOU 08:50
PROVIDERS: ATTEND Podiatrist Foot & Ankle Surgery
DX: I87.312 Chronic venous hypertension (idiopathic) with ulcer of left lower extremity (principal); L97.822 Non-pressure chronic ulcer of other part of left lower leg with fat layer exposed; I73.9 Peripheral vascular disease, unspecified; M20.42 Other hammer toe(s) (acquired), left foot; M20.41 Other hammer toe(s) (acquired), right foot; M21.42 Flat foot [pes planus] (acquired), left foot; M79.605 Pain in left leg; I10 Essential (primary) hypertension; Z79.82 Long term (current) use of aspirin; Z79.899 Other long term (current) drug therapy
CPT/HCPCS: 11042; 11045; A6253

== ENCOUNTER 2020-10-07 09:00 | Outpatient (CLI) | payer MEDICARE, OTHER ==
[2020-10-07] MEDS ORDERED: LIDOCAINE SOLN 4% 50 ML BOTTLE ONE (09:11)
[2020-10-07] MEDS ORDERED: HYDROCORTISONE 1% CREAM 28.35 GM TUBE TP ONE (09:29)
[2020-10-07] MEDS ORDERED: CLOTRIMAZOLE 1% 15 GM TUBE TP ONE (09:29)
== END 2020-10-07 23:59 | disposition home health service (06) ==
LOC: WOU 09:00
PROVIDERS: ATTEND Podiatrist Foot & Ankle Surgery
DX: I87.312 Chronic venous hypertension (idiopathic) with ulcer of left lower extremity (principal); L97.822 Non-pressure chronic ulcer of other part of left lower leg with fat layer exposed; I73.9 Peripheral vascular disease, unspecified; M20.42 Other hammer toe(s) (acquired), left foot; M20.41 Other hammer toe(s) (acquired), right foot; M21.42 Flat foot [pes planus] (acquired), left foot; M79.605 Pain in left leg; Z79.82 Long term (current) use of aspirin; Z79.899 Other long term (current) drug therapy
CPT/HCPCS: 11042; 11045; A6253 ×2; J7040

== ENCOUNTER 2020-10-11 08:40 | Outpatient (CLI) | payer MEDICARE, OTHER ==
[2020-10-11] MEDS ORDERED: LIDOCAINE SOLN 4% 50 ML BOTTLE ONE (08:57)
[2020-10-11] MEDS ORDERED: HYDROCORTISONE 1% CREAM 28.35 GM TUBE TP ONE (09:32)
[2020-10-11] MEDS ORDERED: CLOTRIMAZOLE 1% 15 GM TUBE TP ONE (09:32)
== END 2020-10-11 23:59 | disposition home health service (06) ==
LOC: WOU 08:40
PROVIDERS: ATTEND Podiatrist Foot & Ankle Surgery
DX: I87.312 Chronic venous hypertension (idiopathic) with ulcer of left lower extremity (principal); L97.822 Non-pressure chronic ulcer of other part of left lower leg with fat layer exposed; I73.9 Peripheral vascular disease, unspecified; M20.42 Other hammer toe(s) (acquired), left foot; M20.41 Other hammer toe(s) (acquired), right foot; M21.42 Flat foot [pes planus] (acquired), left foot; M79.605 Pain in left leg; Z79.82 Long term (current) use of aspirin; Z79.899 Other long term (current) drug therapy
CPT/HCPCS: 11042; 11045; A6253; J7040

== ENCOUNTER 2020-10-14 08:55 | Outpatient (CLI) | payer MEDICARE, OTHER ==
[2020-10-14] MEDS ORDERED: CLOTRIMAZOLE 1% 15 GM TUBE TP ONE (08:57)
[2020-10-14] MEDS ORDERED: LIDOCAINE SOLN 4% 50 ML BOTTLE ONE (08:57)
[2020-10-14] MEDS ORDERED: HYDROCORTISONE 1% CREAM 28.35 GM TUBE TP ONE (08:58)
== END 2020-10-14 23:59 | disposition home health service (06) ==
LOC: WOU 08:55
PROVIDERS: ATTEND Podiatrist Foot & Ankle Surgery
DX: I87.312 Chronic venous hypertension (idiopathic) with ulcer of left lower extremity (principal); L97.822 Non-pressure chronic ulcer of other part of left lower leg with fat layer exposed; I73.9 Peripheral vascular disease, unspecified; M20.42 Other hammer toe(s) (acquired), left foot; M20.41 Other hammer toe(s) (acquired), right foot; M21.42 Flat foot [pes planus] (acquired), left foot; M79.605 Pain in left leg; Z79.82 Long term (current) use of aspirin; Z79.899 Other long term (current) drug therapy
CPT/HCPCS: 11042; 11045; A6253; J7040

== ENCOUNTER 2020-10-18 08:55 | Outpatient (CLI) | payer MEDICARE, OTHER ==
[2020-10-18] MEDS ORDERED: LIDOCAINE SOLN 4% 50 ML BOTTLE ONE (09:18)
[2020-10-18] MEDS ORDERED: CLOTRIMAZOLE 1% 15 GM TUBE TP ONE (09:39)
[2020-10-18] MEDS ORDERED: HYDROCORTISONE 1% CREAM 28.35 GM TUBE TP ONE (09:39)
== END 2020-10-18 23:59 | disposition home health service (06) ==
LOC: WOU 08:55
PROVIDERS: ATTEND Podiatrist Foot & Ankle Surgery
DX: I87.312 Chronic venous hypertension (idiopathic) with ulcer of left lower extremity (principal); L97.822 Non-pressure chronic ulcer of other part of left lower leg with fat layer exposed; I73.9 Peripheral vascular disease, unspecified; M20.42 Other hammer toe(s) (acquired), left foot; M20.41 Other hammer toe(s) (acquired), right foot; M21.42 Flat foot [pes planus] (acquired), left foot; M79.605 Pain in left leg; Z79.82 Long term (current) use of aspirin; Z79.899 Other long term (current) drug therapy
CPT/HCPCS: 11042; 11045; A6209; A6253; J7040

== ENCOUNTER 2020-10-21 08:30 | Outpatient (CLI) | payer MEDICARE, OTHER ==
[2020-10-21] MEDS ORDERED: LIDOCAINE SOLN 4% 50 ML BOTTLE ONE (09:08)
[2020-10-21] MEDS ORDERED: CLOTRIMAZOLE 1% 15 GM TUBE TP ONE (09:10)
[2020-10-21] MEDS ORDERED: HYDROCORTISONE 1% CREAM 28.35 GM TUBE TP ONE (09:10)
== END 2020-10-21 23:59 | disposition home health service (06) ==
LOC: WOU 08:30
PROVIDERS: ATTEND Podiatrist Foot & Ankle Surgery
DX: I87.312 Chronic venous hypertension (idiopathic) with ulcer of left lower extremity (principal); L97.822 Non-pressure chronic ulcer of other part of left lower leg with fat layer exposed; I73.9 Peripheral vascular disease, unspecified; M21.42 Flat foot [pes planus] (acquired), left foot; M20.42 Other hammer toe(s) (acquired), left foot; M20.41 Other hammer toe(s) (acquired), right foot; M79.605 Pain in left leg; Z79.82 Long term (current) use of aspirin; Z79.899 Other long term (current) drug therapy
CPT/HCPCS: 11042; 11045; A6253

== ENCOUNTER 2020-10-25 08:45 | Outpatient (CLI) | payer MEDICARE, OTHER ==
[2020-10-25] MEDS ORDERED: CLOTRIMAZOLE 1% 15 GM TUBE TP ONE (09:19)
[2020-10-25] MEDS ORDERED: HYDROCORTISONE 1% CREAM 28.35 GM TUBE TP ONE (09:19)
== END 2020-10-25 23:59 | disposition home health service (06) ==
LOC: WOU 08:45
PROVIDERS: ATTEND Podiatrist Foot & Ankle Surgery
DX: I87.312 Chronic venous hypertension (idiopathic) with ulcer of left lower extremity (principal); L97.822 Non-pressure chronic ulcer of other part of left lower leg with fat layer exposed; I73.9 Peripheral vascular disease, unspecified; M20.42 Other hammer toe(s) (acquired), left foot; M20.41 Other hammer toe(s) (acquired), right foot; M21.42 Flat foot [pes planus] (acquired), left foot; M79.605 Pain in left leg; Z79.82 Long term (current) use of aspirin; Z79.899 Other long term (current) drug therapy
CPT/HCPCS: 11042; 11045; A6253

== ENCOUNTER 2020-11-01 08:50 | Outpatient (CLI) | payer MEDICARE, OTHER ==
[2020-11-01] MEDS ORDERED: LIDOCAINE SOLN 4% 50 ML BOTTLE ONE (09:17)
[2020-11-01] MEDS ORDERED: CLOTRIMAZOLE 1% 15 GM TUBE TP ONE (09:41)
[2020-11-01] MEDS ORDERED: HYDROCORTISONE 1% CREAM 28.35 GM TUBE TP ONE (09:42)
== END 2020-11-01 23:59 | disposition home health service (06) ==
LOC: WOU 08:50
PROVIDERS: ATTEND Podiatrist Foot & Ankle Surgery
DX: I87.312 Chronic venous hypertension (idiopathic) with ulcer of left lower extremity (principal); L97.822 Non-pressure chronic ulcer of other part of left lower leg with fat layer exposed; I73.9 Peripheral vascular disease, unspecified; M20.42 Other hammer toe(s) (acquired), left foot; M20.41 Other hammer toe(s) (acquired), right foot; M21.41 Flat foot [pes planus] (acquired), right foot; M79.605 Pain in left leg; Z79.82 Long term (current) use of aspirin; Z79.899 Other long term (current) drug therapy
CPT/HCPCS: 11042; 11045; 15271; A6253; Q4110

== ENCOUNTER 2020-11-04 08:30 | Outpatient (CLI) | payer MEDICARE, OTHER ==
[2020-11-04] MEDS ORDERED: LIDOCAINE SOLN 4% 50 ML BOTTLE ONE (08:37)
[2020-11-04] MEDS ORDERED: HYDROCORTISONE 1% CREAM 28.35 GM TUBE TP ONE (09:51)
[2020-11-04] MEDS ORDERED: CLOTRIMAZOLE 1% 15 GM TUBE TP ONE (09:51)
== END 2020-11-04 23:59 | disposition home health service (06) ==
LOC: WOU 08:30
PROVIDERS: ATTEND Podiatrist Foot & Ankle Surgery
DX: I87.312 Chronic venous hypertension (idiopathic) with ulcer of left lower extremity (principal); L97.822 Non-pressure chronic ulcer of other part of left lower leg with fat layer exposed; I73.9 Peripheral vascular disease, unspecified; M20.42 Other hammer toe(s) (acquired), left foot; M20.41 Other hammer toe(s) (acquired), right foot; M21.42 Flat foot [pes planus] (acquired), left foot; M79.605 Pain in left leg; Z79.82 Long term (current) use of aspirin; Z79.899 Other long term (current) drug therapy
CPT/HCPCS: 11042; 11045; A6253

== ENCOUNTER 2020-11-08 08:45 | Outpatient (CLI) | payer MEDICARE, OTHER ==
[2020-11-08] MEDS ORDERED: LIDOCAINE SOLN 4% 50 ML BOTTLE ONE (09:08)
[2020-11-08] MEDS ORDERED: HYDROCORTISONE 1% CREAM 28.35 GM TUBE TP ONE (09:20)
== END 2020-11-08 23:59 | disposition home health service (06) ==
LOC: WOU 08:45
PROVIDERS: ATTEND Podiatrist Foot & Ankle Surgery
DX: I87.312 Chronic venous hypertension (idiopathic) with ulcer of left lower extremity (principal); L97.822 Non-pressure chronic ulcer of other part of left lower leg with fat layer exposed; I73.9 Peripheral vascular disease, unspecified; M79.605 Pain in left leg; M20.42 Other hammer toe(s) (acquired), left foot; M20.41 Other hammer toe(s) (acquired), right foot; M21.42 Flat foot [pes planus] (acquired), left foot; Z79.82 Long term (current) use of aspirin; Z79.899 Other long term (current) drug therapy
CPT/HCPCS: 11042; 11045; A6253

== ENCOUNTER 2020-11-11 08:45 | Outpatient (CLI) | payer MEDICARE, OTHER ==
[2020-11-11] MEDS ORDERED: LIDOCAINE SOLN 4% 50 ML BOTTLE ONE (08:54)
[2020-11-11] MEDS ORDERED: CLOTRIMAZOLE 1% 15 GM TUBE TP ONE (09:23)
[2020-11-11] MEDS ORDERED: HYDROCORTISONE 1% CREAM 28.35 GM TUBE TP ONE (09:23)
== END 2020-11-11 23:59 | disposition home health service (06) ==
LOC: WOU 08:45
PROVIDERS: ATTEND Podiatrist Foot & Ankle Surgery
DX: I87.312 Chronic venous hypertension (idiopathic) with ulcer of left lower extremity (principal); L97.822 Non-pressure chronic ulcer of other part of left lower leg with fat layer exposed; I73.9 Peripheral vascular disease, unspecified; M20.42 Other hammer toe(s) (acquired), left foot; M20.41 Other hammer toe(s) (acquired), right foot; M21.42 Flat foot [pes planus] (acquired), left foot; M79.605 Pain in left leg; Z79.82 Long term (current) use of aspirin; Z79.899 Other long term (current) drug therapy
CPT/HCPCS: 11042; 11045; 15271; A6253 ×2; Q4110

== ENCOUNTER 2020-11-11 09:59 | Outpatient (CLI) | payer MEDICARE, OTHER | END 2020-11-11 23:59 | disposition home or self-care (01) | LOC: MSC 09:59 | PROVIDERS: ATTEND Anesthesiology | DX: G89.4 Chronic pain syndrome (principal); M79.606 Pain in leg, unspecified; M54.16 Radiculopathy, lumbar region; M40.299 Other kyphosis, site unspecified; M62.830 Muscle spasm of back; Z79.891 Long term (current) use of opiate analgesic; Z79.1 Long term (current) use of non-steroidal anti-inflammatories (NSAID) ==

== ENCOUNTER 2020-11-11 10:14 | Emergency (ER) | payer MEDICARE, OTHER ==
[~2020-11-11] VITALS: Ht 152.4 cm; Wt 52.2 kg
--- NOTE | 2020-11-11 10:14 | NUR ---
PT BIB WOUND CARE STAFF C/O ON AND OFF CHEST PAIN FOR 3 WEEKS AND L LEG PAIN. PT IS AAOX4, NOT IN RESPIRATORY DISTRESS, HOOKED TO ONCOLOGY RN,KEPT RESTED AND COMFORTABLE. WILL CONTINUE TO MONITOR.
--- NOTE | 2020-11-11 10:33 | NUR ---
SEEN AND EXAMINED BY .
--- NOTE | 2020-11-11 10:40 | NUR ---
IV LINE ESTABLISHED BLOOD DRAWN AND SENT TO LAB.
[2020-11-11 10:47] LABS: BASOPHILS % (AUTO) 0.1 % (0.0-2.0); EOSINOPHILS % (AUTO) 0.5 % (0.0-6.0); HEMATOCRIT 33 % (33-45); HEMOGLOBIN 10.3 g/dL (11.5-14.8); LYMPHOCYTES # (AUTO) 0.9 /CMM (0.8-4.8); MEAN CORPUSCULAR HGB CONC 31 g/dl (31.0-36.0); MEAN CORPUSCULAR VOLUME 80 fL (82-100); MONOCYTES # (AUTO) 0.6 /CMM (0.1-1.30); MONOCYTES % (AUTO) 5.8 % (2.0-12.0); NEUTROPHILS # (AUTO) 8.6 /CMM (1.8-8.9); NEUTROPHILS % (AUTO) 84.6 % (43.0-81.0); PLATELET COUNT (AUTO) 282 /CMM (150-450); RED BLOOD CELL COUNT(AUTO) 4.16 MIL/uL (4.0-5.2); WHITE BLOOD COUNT (AUTO) 10.2 K/uL (4.3-11.0)
[2020-11-11] MEDS ORDERED: ASPIRIN 81 MG TAB.CHEW ONE (10:47)
[2020-11-11] MEDS ORDERED: NITROGLYCERIN 0.4 MG/TAB BOTTLE ONE (10:47)
[2020-11-11] MEDS ORDERED: MORPHINE SULFATE INJ 2 MG/ML DISP.SYRIN ONE (10:47)
[2020-11-11 10:53] LABS: CALCIUM, SERUM 9.1 mg/dL (8.5-10.1); CARBON DIOXIDE 28 mmol/L (21-32); CHLORIDE 106 mmol/L (98-107); CREATININE 0.7 mg/dL (0.6-1.3); GLUCOSE 126 mg/dL (74-106); POTASSIUM 4.2 mmol/L (3.5-5.1); SODIUM SERUM 144 mmol/L (136-145); UREA NITROGEN, BLOOD 29 mg/dL (7-18)
[2020-11-11] MEDS ORDERED: NITROGLYCERIN 0.4 MG/TAB BOTTLE SL ONE (11:00)
[2020-11-11] MEDS ORDERED: ASPIRIN 325 MG TABLET PO ONE (11:00)
[2020-11-11] MEDS ORDERED: MORPHINE SULFATE INJ 2 MG/ML DISP.SYRIN IV ONE (11:00)
[2020-11-11 11:06] LABS: B-TYPE NATRIURETIC PEPTIDE 1906 PG/ML (0-125)
--- NOTE | 2020-11-11 11:09 | NUR ---
HUNTING AND FISHING GUIDE AT BEDSIDE FOR XRAY.
--- NOTE | 2020-11-11 11:48 | NUR ---
IV removed. Catheter intact and site benign. Pressure and 4x4 applied to site. No bleeding noted.
[2020-11-11 11:49] VITALS: BP 146/87
--- NOTE | 2020-11-11 11:49 | NUR ---
Note undone in EDM - 11/11/20 at 1150 by [place] IV removed. Catheter intact and site benign. Pressure and 4x4 applied to site. No bleeding noted. Patient discharged to home in stable condition. Written and verbal after care instructions given. Patient verbalizes understanding of instruction.
--- NOTE | 2020-11-11 11:50 | NUR ---
Patient does not wish to proceed with medical care recommended by Dr. [place] Patient given information related to possible complications, up to and including , which could occur as a result of leaving the hospital at this time. Patient verbalizes understanding of risks involved due to leaving against medical advice. Patient has signed AMA form.
== END 2020-11-11 11:56 | disposition left against medical advice (07) ==
LOC: ER 10:31
DX: S81.802A Unspecified open wound, left lower leg, initial encounter (principal); R07.89 Other chest pain; I10 Essential (primary) hypertension; Z95.0 Presence of cardiac pacemaker; Z60.2 Problems related to living alone; X58.XXXA Exposure to other specified factors, initial encounter; Y93.89 Activity, other specified; Y92.89 Other specified places as the place of occurrence of the external cause; Y99.8 Other external cause status
CPT/HCPCS: 36415; 71045; 80048; 83880; 84484; 85025; 93005 ×2; 96374; 99285; J2270

== ENCOUNTER 2020-11-15 08:50 | Outpatient (CLI) | payer MEDICARE, OTHER ==
[2020-11-15] MEDS ORDERED: LIDOCAINE SOLN 4% 50 ML BOTTLE ONE (09:17)
[2020-11-15] MEDS ORDERED: CLOTRIMAZOLE 1% 15 GM TUBE TP ONE (09:28)
[2020-11-15] MEDS ORDERED: HYDROCORTISONE 1% CREAM 28.35 GM TUBE TP ONE (09:28)
== END 2020-11-15 23:59 | disposition home health service (06) ==
LOC: WOU 08:50
PROVIDERS: ATTEND Podiatrist Foot & Ankle Surgery
DX: I87.312 Chronic venous hypertension (idiopathic) with ulcer of left lower extremity (principal); L97.822 Non-pressure chronic ulcer of other part of left lower leg with fat layer exposed; I73.9 Peripheral vascular disease, unspecified; M79.605 Pain in left leg; M20.42 Other hammer toe(s) (acquired), left foot; M20.41 Other hammer toe(s) (acquired), right foot; M21.42 Flat foot [pes planus] (acquired), left foot; Z79.82 Long term (current) use of aspirin; Z79.899 Other long term (current) drug therapy
CPT/HCPCS: 11042; 11045; A6253

== ENCOUNTER 2020-11-18 08:45 | Outpatient (CLI) | payer MEDICARE, OTHER ==
[2020-11-18] MEDS ORDERED: LIDOCAINE SOLN 4% 50 ML BOTTLE ONE (08:57)
== END 2020-11-18 23:59 | disposition home health service (06) ==
LOC: WOU 08:45
PROVIDERS: ATTEND Podiatrist Foot & Ankle Surgery
DX: I87.312 Chronic venous hypertension (idiopathic) with ulcer of left lower extremity (principal); L97.822 Non-pressure chronic ulcer of other part of left lower leg with fat layer exposed; I87.2 Venous insufficiency (chronic) (peripheral); I73.9 Peripheral vascular disease, unspecified; M79.605 Pain in left leg; M20.42 Other hammer toe(s) (acquired), left foot; M20.41 Other hammer toe(s) (acquired), right foot; M21.42 Flat foot [pes planus] (acquired), left foot; I10 Essential (primary) hypertension; Z79.82 Long term (current) use of aspirin; Z79.899 Other long term (current) drug therapy
CPT/HCPCS: 11042; 11045; 15271; A6253; Q4110

== ENCOUNTER 2020-11-25 08:50 | Outpatient (CLI) | payer MEDICARE, OTHER ==
[2020-11-25] MEDS ORDERED: LIDOCAINE SOLN 4% 50 ML BOTTLE ONE (09:08)
[2020-11-25] MEDS ORDERED: HYDROCORTISONE 1% CREAM 28.35 GM TUBE TP ONE (09:53)
[2020-11-25] MEDS ORDERED: CLOTRIMAZOLE 1% 15 GM TUBE TP ONE (09:53)
== END 2020-11-25 23:59 | disposition home health service (06) ==
LOC: WOU 08:50
PROVIDERS: ATTEND Podiatrist Foot & Ankle Surgery
DX: I87.312 Chronic venous hypertension (idiopathic) with ulcer of left lower extremity (principal); L97.822 Non-pressure chronic ulcer of other part of left lower leg with fat layer exposed; I73.9 Peripheral vascular disease, unspecified; M79.605 Pain in left leg; M20.42 Other hammer toe(s) (acquired), left foot; M20.41 Other hammer toe(s) (acquired), right foot; M21.42 Flat foot [pes planus] (acquired), left foot; Z79.82 Long term (current) use of aspirin
CPT/HCPCS: 11042; 11045; A6210; A6253

== ENCOUNTER 2020-11-29 08:45 | Outpatient (CLI) | payer MEDICARE, OTHER ==
[2020-11-29] MEDS ORDERED: LIDOCAINE SOLN 4% 50 ML BOTTLE ONE (08:53)
[2020-11-29] MEDS ORDERED: HYDROCORTISONE 1% CREAM 28.35 GM TUBE TP ONE (10:04)
[2020-11-29] MEDS ORDERED: CLOTRIMAZOLE 1% 15 GM TUBE TP ONE (10:04)
== END 2020-11-29 23:59 | disposition home health service (06) ==
LOC: WOU 08:45
PROVIDERS: ATTEND Podiatrist Foot & Ankle Surgery
DX: I87.312 Chronic venous hypertension (idiopathic) with ulcer of left lower extremity (principal); L97.822 Non-pressure chronic ulcer of other part of left lower leg with fat layer exposed; I73.9 Peripheral vascular disease, unspecified; M20.42 Other hammer toe(s) (acquired), left foot; M20.41 Other hammer toe(s) (acquired), right foot; M21.42 Flat foot [pes planus] (acquired), left foot; M79.605 Pain in left leg; Z79.82 Long term (current) use of aspirin; Z79.899 Other long term (current) drug therapy
CPT/HCPCS: 11042; 11045; A6197; A6210; A6253 ×2; J7040

== ENCOUNTER 2020-12-02 08:50 | Outpatient (CLI) | payer MEDICARE, OTHER ==
[2020-12-02] MEDS ORDERED: LIDOCAINE SOLN 4% 50 ML BOTTLE ONE (09:20)
[2020-12-02] MEDS ORDERED: CLOTRIMAZOLE 1% 15 GM TUBE TP ONE (09:37)
[2020-12-02] MEDS ORDERED: HYDROCORTISONE 1% CREAM 28.35 GM TUBE TP ONE (09:37)
== END 2020-12-02 23:59 | disposition home health service (06) ==
LOC: WOU 08:50
PROVIDERS: ATTEND Podiatrist Foot & Ankle Surgery
DX: I87.312 Chronic venous hypertension (idiopathic) with ulcer of left lower extremity (principal); L97.822 Non-pressure chronic ulcer of other part of left lower leg with fat layer exposed; I73.9 Peripheral vascular disease, unspecified; M20.42 Other hammer toe(s) (acquired), left foot; M20.41 Other hammer toe(s) (acquired), right foot; M21.42 Flat foot [pes planus] (acquired), left foot; M79.605 Pain in left leg; Z79.82 Long term (current) use of aspirin; Z79.899 Other long term (current) drug therapy
CPT/HCPCS: 11042; 11045; A6197; A6253

== ENCOUNTER 2020-12-06 08:35 | Outpatient (CLI) | payer MEDICARE, OTHER ==
[2020-12-06] MEDS ORDERED: LIDOCAINE SOLN 4% 50 ML BOTTLE ONE (08:47)
[2020-12-06] MEDS ORDERED: HYDROCORTISONE 1% CREAM 28.35 GM TUBE TP ONE (09:24)
[2020-12-06] MEDS ORDERED: CLOTRIMAZOLE 1% 15 GM TUBE TP ONE (09:25)
== END 2020-12-06 23:59 | disposition home health service (06) ==
LOC: WOU 08:35
PROVIDERS: ATTEND Podiatrist Foot & Ankle Surgery
DX: I87.312 Chronic venous hypertension (idiopathic) with ulcer of left lower extremity (principal); L97.822 Non-pressure chronic ulcer of other part of left lower leg with fat layer exposed; I73.9 Peripheral vascular disease, unspecified; M20.42 Other hammer toe(s) (acquired), left foot; M20.41 Other hammer toe(s) (acquired), right foot; M21.42 Flat foot [pes planus] (acquired), left foot; M79.605 Pain in left leg; I10 Essential (primary) hypertension; Z79.82 Long term (current) use of aspirin; Z79.899 Other long term (current) drug therapy
CPT/HCPCS: 11042; 11045; A6253

== ENCOUNTER 2020-12-09 09:00 | Outpatient (CLI) | payer MEDICARE, OTHER ==
[2020-12-09] MEDS ORDERED: LIDOCAINE SOLN 4% 50 ML BOTTLE ONE (09:23)
[2020-12-09] MEDS ORDERED: LIDOCAINE 2% JEL 5 ML TUBE ONE (09:23)
[2020-12-09] MEDS ORDERED: CLOTRIMAZOLE 1% 15 GM TUBE TP ONE (10:15)
[2020-12-09] MEDS ORDERED: HYDROCORTISONE 1% CREAM 28.35 GM TUBE TP ONE (10:15)
== END 2020-12-09 23:59 | disposition home health service (06) ==
LOC: WOU 09:00
PROVIDERS: ATTEND Podiatrist Foot & Ankle Surgery
DX: I87.312 Chronic venous hypertension (idiopathic) with ulcer of left lower extremity (principal); L97.822 Non-pressure chronic ulcer of other part of left lower leg with fat layer exposed; I73.9 Peripheral vascular disease, unspecified; M20.42 Other hammer toe(s) (acquired), left foot; M20.41 Other hammer toe(s) (acquired), right foot; M21.42 Flat foot [pes planus] (acquired), left foot; M79.605 Pain in left leg; Z79.82 Long term (current) use of aspirin; Z79.899 Other long term (current) drug therapy
CPT/HCPCS: 11042; 11045; A6253; J7040

== ENCOUNTER 2020-12-13 08:55 | Outpatient (CLI) | payer MEDICARE, OTHER ==
[2020-12-13] MEDS ORDERED: LIDOCAINE SOLN 4% 50 ML BOTTLE ONE (09:06)
[2020-12-13] MEDS ORDERED: HYDROCORTISONE 1% CREAM 28.35 GM TUBE TP ONE (09:53)
== END 2020-12-13 23:59 | disposition home health service (06) ==
LOC: WOU 08:55
PROVIDERS: ATTEND Podiatrist Foot & Ankle Surgery
DX: I87.312 Chronic venous hypertension (idiopathic) with ulcer of left lower extremity (principal); L97.822 Non-pressure chronic ulcer of other part of left lower leg with fat layer exposed; I73.9 Peripheral vascular disease, unspecified; M20.42 Other hammer toe(s) (acquired), left foot; M20.41 Other hammer toe(s) (acquired), right foot; M21.42 Flat foot [pes planus] (acquired), left foot; I10 Essential (primary) hypertension; M79.605 Pain in left leg; Z79.82 Long term (current) use of aspirin; Z79.899 Other long term (current) drug therapy
CPT/HCPCS: 11042; 11043; 11045; 11046; A6253; J7040

== ENCOUNTER 2020-12-16 08:40 | Outpatient (CLI) | payer MEDICARE, OTHER ==
[2020-12-16] MEDS ORDERED: LIDOCAINE SOLN 4% 50 ML BOTTLE ONE (08:59)
[2020-12-16] MEDS ORDERED: CLOTRIMAZOLE 1% 15 GM TUBE TP ONE (09:48)
[2020-12-16] MEDS ORDERED: HYDROCORTISONE 1% CREAM 28.35 GM TUBE TP ONE (09:48)
[2020-12-16 10:00] LABS: ALBUMIN 3.1 g/dL (3.4-5.0)
[2020-12-16 10:11] LABS: BASOPHILS % (AUTO) 0.2 % (0.0-2.0); EOSINOPHILS % (AUTO) 1.4 % (0.0-6.0); HEMATOCRIT 34 % (33-45); HEMOGLOBIN 10.8 g/dL (11.5-14.8); LYMPHOCYTES # (AUTO) 0.7 K/uL (0.8-4.8); LYMPHOCYTES % (AUTO) 10.7 % (20.0-44.0); MEAN CORPUSCULAR HGB CONC 32 g/dl (31.0-36.0); MEAN CORPUSCULAR VOLUME 80 fL (82-100); MONOCYTES # (AUTO) 0.4 K/uL (0.1-1.30); MONOCYTES % (AUTO) 5.7 % (2.0-12.0); NEUTROPHILS # (AUTO) 5.7 K/uL (1.8-8.9); PLATELET COUNT (AUTO) 301 K/uL (150-450); RED BLOOD CELL COUNT(AUTO) 4.25 MIL/uL (4.0-5.2)
[2020-12-16 11:35] LABS: PREALBUMIN 21.5 MG/DL (18.0-35.7)
== END 2020-12-16 23:59 | disposition home health service (06) ==
LOC: WOU 08:40
PROVIDERS: ATTEND Podiatrist Foot & Ankle Surgery
DX: I87.312 Chronic venous hypertension (idiopathic) with ulcer of left lower extremity (principal); L97.822 Non-pressure chronic ulcer of other part of left lower leg with fat layer exposed; L97.823 Non-pressure chronic ulcer of other part of left lower leg with necrosis of muscle; I73.9 Peripheral vascular disease, unspecified; M79.605 Pain in left leg; M20.42 Other hammer toe(s) (acquired), left foot; M20.41 Other hammer toe(s) (acquired), right foot; M21.42 Flat foot [pes planus] (acquired), left foot; Z79.82 Long term (current) use of aspirin; Z79.899 Other long term (current) drug therapy
CPT/HCPCS: 11042; 11043; 11045; 11046; 36415; 82040; 84134; 85025; 88304; A6253 ×2; J7040

== ENCOUNTER 2020-12-20 08:45 | Outpatient (CLI) | payer MEDICARE, OTHER ==
[2020-12-20] MEDS ORDERED: CLOTRIMAZOLE 1% 15 GM TUBE TP ONE (09:33)
== END 2020-12-20 23:59 | disposition home health service (06) ==
LOC: WOU 08:45
PROVIDERS: ATTEND Podiatrist Foot & Ankle Surgery
DX: I87.312 Chronic venous hypertension (idiopathic) with ulcer of left lower extremity (principal); L97.822 Non-pressure chronic ulcer of other part of left lower leg with fat layer exposed; L97.823 Non-pressure chronic ulcer of other part of left lower leg with necrosis of muscle; I73.9 Peripheral vascular disease, unspecified; M79.605 Pain in left leg; M20.42 Other hammer toe(s) (acquired), left foot; M20.41 Other hammer toe(s) (acquired), right foot; M21.42 Flat foot [pes planus] (acquired), left foot; Z79.82 Long term (current) use of aspirin; Z79.899 Other long term (current) drug therapy
CPT/HCPCS: 11042; 11045; A6253; J7040

== ENCOUNTER 2020-12-23 08:39 | Outpatient (CLI) | payer MEDICARE, OTHER ==
[2020-12-23] MEDS ORDERED: LIDOCAINE SOLN 4% 50 ML BOTTLE ONE (08:48)
[2020-12-23] MEDS ORDERED: CLOTRIMAZOLE 1% 15 GM TUBE TP ONE (08:50)
[2020-12-23] MEDS ORDERED: HYDROCORTISONE 1% CREAM 28.35 GM TUBE TP ONE (08:50)
[2020-12-23] MEDS ORDERED: SILVER SULFADIAZINE CREAM 25 GM TUBE ONE (09:27)
== END 2020-12-23 23:59 | disposition home health service (06) ==
LOC: WOU 08:39
PROVIDERS: ATTEND Podiatrist Foot & Ankle Surgery
DX: I87.312 Chronic venous hypertension (idiopathic) with ulcer of left lower extremity (principal); L97.822 Non-pressure chronic ulcer of other part of left lower leg with fat layer exposed; L97.823 Non-pressure chronic ulcer of other part of left lower leg with necrosis of muscle; I73.9 Peripheral vascular disease, unspecified; M79.605 Pain in left leg; M20.42 Other hammer toe(s) (acquired), left foot; M20.41 Other hammer toe(s) (acquired), right foot; M21.42 Flat foot [pes planus] (acquired), left foot; Z79.82 Long term (current) use of aspirin; Z79.899 Other long term (current) drug therapy
CPT/HCPCS: 11042; 11043; 11045; 11046; A6253; J7040

== ENCOUNTER 2020-12-30 08:45 | Outpatient (CLI) | payer MEDICARE, OTHER ==
[2020-12-30] MEDS ORDERED: CLOTRIMAZOLE 1% 15 GM TUBE TP ONE (10:11)
[2020-12-30] MEDS ORDERED: HYDROCORTISONE 1% CREAM 28.35 GM TUBE TP ONE (10:11)
[2020-12-30] MEDS ORDERED: SILVER SULFADIAZINE CREAM 25 GM TUBE ONE (10:11)
== END 2020-12-30 23:59 | disposition home health service (06) ==
LOC: WOU 08:45
PROVIDERS: ATTEND Podiatrist Foot & Ankle Surgery
DX: I87.312 Chronic venous hypertension (idiopathic) with ulcer of left lower extremity (principal); L97.822 Non-pressure chronic ulcer of other part of left lower leg with fat layer exposed; L97.823 Non-pressure chronic ulcer of other part of left lower leg with necrosis of muscle; I73.9 Peripheral vascular disease, unspecified; M79.605 Pain in left leg; M20.42 Other hammer toe(s) (acquired), left foot; M20.41 Other hammer toe(s) (acquired), right foot; M21.42 Flat foot [pes planus] (acquired), left foot; Z79.899 Other long term (current) drug therapy; Z79.82 Long term (current) use of aspirin
CPT/HCPCS: 11042; 11043; 11045; 11046; A6253; J7040

== ENCOUNTER 2021-01-03 08:45 | Outpatient (CLI) | payer MEDICARE, OTHER ==
[2021-01-03] MEDS ORDERED: LIDOCAINE SOLN 4% 50 ML BOTTLE ONE (09:00)
[2021-01-03] MEDS ORDERED: SILVER SULFADIAZINE CREAM 25 GM TUBE ONE (09:22)
[2021-01-03] MEDS ORDERED: UREA 10% -AHA 4% CREAM 57 GM TUBE ONE (09:47)
== END 2021-01-03 23:59 | disposition home health service (06) ==
LOC: WOU 08:45
PROVIDERS: ATTEND Podiatrist Foot & Ankle Surgery
DX: I87.312 Chronic venous hypertension (idiopathic) with ulcer of left lower extremity (principal); L97.823 Non-pressure chronic ulcer of other part of left lower leg with necrosis of muscle; I73.9 Peripheral vascular disease, unspecified; M20.42 Other hammer toe(s) (acquired), left foot; M20.41 Other hammer toe(s) (acquired), right foot; M21.42 Flat foot [pes planus] (acquired), left foot; M79.605 Pain in left leg; I10 Essential (primary) hypertension; Z79.82 Long term (current) use of aspirin; Z79.899 Other long term (current) drug therapy
CPT/HCPCS: 11043; 11046; 87070; 87075; 87102; 87186; A6253; J7040

== ENCOUNTER 2021-01-06 08:40 | Outpatient (CLI) | payer MEDICARE, OTHER ==
[2021-01-06] MEDS ORDERED: LIDOCAINE SOLN 4% 50 ML BOTTLE ONE (09:14)
[2021-01-06] MEDS ORDERED: COLLAGENASE 5 GM TUBE UD TP ONE (09:50)
[2021-01-06] MEDS ORDERED: CLOTRIMAZOLE 1% 15 GM TUBE TP ONE (09:51)
[2021-01-06] MEDS ORDERED: HYDROCORTISONE 1% CREAM 28.35 GM TUBE TP ONE (09:51)
== END 2021-01-06 23:59 | disposition home health service (06) ==
LOC: WOU 08:40
PROVIDERS: ATTEND Podiatrist Foot & Ankle Surgery
DX: I87.312 Chronic venous hypertension (idiopathic) with ulcer of left lower extremity (principal); L97.823 Non-pressure chronic ulcer of other part of left lower leg with necrosis of muscle; M20.42 Other hammer toe(s) (acquired), left foot; M20.41 Other hammer toe(s) (acquired), right foot; M21.42 Flat foot [pes planus] (acquired), left foot; M79.605 Pain in left leg; Z79.82 Long term (current) use of aspirin; Z79.899 Other long term (current) drug therapy
CPT/HCPCS: 11043; 11046; A6253; J7040

== ENCOUNTER 2021-01-10 08:45 | Outpatient (CLI) | payer MEDICARE, OTHER ==
[2021-01-10] MEDS ORDERED: LIDOCAINE SOLN 4% 50 ML BOTTLE ONE (08:57)
[2021-01-10] MEDS ORDERED: GENTAMICIN 0.1% CREAM 15 GM TUBE ONE (09:33)
[2021-01-10] MEDS ORDERED: CLOTRIMAZOLE 1% 15 GM TUBE TP ONE (09:35)
[2021-01-10] MEDS ORDERED: HYDROCORTISONE 1% CREAM 28.35 GM TUBE TP ONE (09:35)
== END 2021-01-10 23:59 | disposition home health service (06) ==
LOC: WOU 08:45
PROVIDERS: ATTEND Podiatrist Foot & Ankle Surgery
DX: I87.312 Chronic venous hypertension (idiopathic) with ulcer of left lower extremity (principal); L97.823 Non-pressure chronic ulcer of other part of left lower leg with necrosis of muscle; I73.9 Peripheral vascular disease, unspecified; M79.605 Pain in left leg; M20.42 Other hammer toe(s) (acquired), left foot; M20.41 Other hammer toe(s) (acquired), right foot; M21.42 Flat foot [pes planus] (acquired), left foot; Z79.82 Long term (current) use of aspirin; Z79.899 Other long term (current) drug therapy
CPT/HCPCS: 11043; 11046; A6253; J7040

== ENCOUNTER 2021-01-13 12:45 | Outpatient (CLI) | payer MEDICARE, OTHER ==
[2021-01-13] MEDS ORDERED: LIDOCAINE SOLN 4% 50 ML BOTTLE ONE (12:58)
[2021-01-13] MEDS ORDERED: GENTAMICIN 0.1% CREAM 15 GM TUBE ONE (13:56)
== END 2021-01-13 23:59 | disposition home health service (06) ==
LOC: WOU 12:45
PROVIDERS: ATTEND Surgery
DX: I87.312 Chronic venous hypertension (idiopathic) with ulcer of left lower extremity (principal); L97.823 Non-pressure chronic ulcer of other part of left lower leg with necrosis of muscle; L03.116 Cellulitis of left lower limb; I73.9 Peripheral vascular disease, unspecified; M20.42 Other hammer toe(s) (acquired), left foot; M20.41 Other hammer toe(s) (acquired), right foot; M21.42 Flat foot [pes planus] (acquired), left foot; M79.605 Pain in left leg; E46 Unspecified protein-calorie malnutrition; Z68.22 Body mass index [BMI] 22.0-22.9, adult; M19.90 Unspecified osteoarthritis, unspecified site; Z79.82 Long term (current) use of aspirin; Z79.899 Other long term (current) drug therapy
CPT/HCPCS: 11043; 11046; A6253

== ENCOUNTER 2021-01-17 08:47 | Outpatient (CLI) | payer MEDICARE, OTHER ==
[2021-01-17] MEDS ORDERED: LIDOCAINE SOLN 4% 50 ML BOTTLE ONE (08:53)
[2021-01-17] MEDS ORDERED: HYDROCORTISONE 1% CREAM 28.35 GM TUBE TP ONE (09:48)
== END 2021-01-17 23:59 | disposition home health service (06) ==
LOC: WOU 08:47
PROVIDERS: ATTEND Podiatrist Foot & Ankle Surgery
DX: I87.312 Chronic venous hypertension (idiopathic) with ulcer of left lower extremity (principal); L97.823 Non-pressure chronic ulcer of other part of left lower leg with necrosis of muscle; I73.9 Peripheral vascular disease, unspecified; M20.42 Other hammer toe(s) (acquired), left foot; M20.41 Other hammer toe(s) (acquired), right foot; M21.42 Flat foot [pes planus] (acquired), left foot; M79.605 Pain in left leg
CPT/HCPCS: 11042; 11045; A6253

== ENCOUNTER 2021-01-20 08:40 | Outpatient (CLI) | payer MEDICARE, OTHER ==
[2021-01-20] MEDS ORDERED: GENTAMICIN 0.1% CREAM 15 GM TUBE ONE (09:24)
== END 2021-01-20 23:59 | disposition home health service (06) ==
LOC: WOU 08:40
PROVIDERS: ATTEND Podiatrist Foot & Ankle Surgery
DX: I87.312 Chronic venous hypertension (idiopathic) with ulcer of left lower extremity (principal); L97.823 Non-pressure chronic ulcer of other part of left lower leg with necrosis of muscle; I73.9 Peripheral vascular disease, unspecified; M20.42 Other hammer toe(s) (acquired), left foot; M20.41 Other hammer toe(s) (acquired), right foot; M21.42 Flat foot [pes planus] (acquired), left foot; M79.605 Pain in left leg; Z79.82 Long term (current) use of aspirin; Z79.899 Other long term (current) drug therapy
CPT/HCPCS: 11043; 11046; A6253; J7040

== ENCOUNTER 2021-01-24 08:45 | Outpatient (CLI) | payer MEDICARE, OTHER ==
[2021-01-24] MEDS ORDERED: MUPIROCIN 2% CREAM 15 GM TUBE TP ONE (09:43)
== END 2021-01-24 23:59 | disposition home health service (06) ==
LOC: WOU 08:45
PROVIDERS: ATTEND Podiatrist Foot & Ankle Surgery
DX: I87.312 Chronic venous hypertension (idiopathic) with ulcer of left lower extremity (principal); L97.823 Non-pressure chronic ulcer of other part of left lower leg with necrosis of muscle; I73.9 Peripheral vascular disease, unspecified; B95.62 Methicillin resistant Staphylococcus aureus infection as the cause of diseases classified elsewhere; B96.5 Pseudomonas (aeruginosa) (mallei) (pseudomallei) as the cause of diseases classified elsewhere; M79.605 Pain in left leg; M20.42 Other hammer toe(s) (acquired), left foot; M20.41 Other hammer toe(s) (acquired), right foot; M21.42 Flat foot [pes planus] (acquired), left foot; Z79.82 Long term (current) use of aspirin; Z79.899 Other long term (current) drug therapy
CPT/HCPCS: 11043; 11046; A6253; J7040

== ENCOUNTER → 2021-01-27 | Outpatient (CLI) | payer MEDICARE, OTHER | END | disposition home or self-care (01) | LOC: MSC 09:09 | PROVIDERS: ATTEND Internal Medicine | DX: M54.5 Low back pain (principal); R13.13 Dysphagia, pharyngeal phase; I87.2 Venous insufficiency (chronic) (peripheral); Z86.79 Personal history of other diseases of the circulatory system; I10 Essential (primary) hypertension; E78.5 Hyperlipidemia, unspecified; E03.9 Hypothyroidism, unspecified; Z79.890 Hormone replacement therapy; M19.90 Unspecified osteoarthritis, unspecified site ==

== ENCOUNTER → 2021-01-27 | Outpatient (CLI) | payer MEDICARE, OTHER | END | disposition home health service (06) | LOC: WOU 08:55 | PROVIDERS: ATTEND Podiatrist Foot & Ankle Surgery | DX: I87.312 Chronic venous hypertension (idiopathic) with ulcer of left lower extremity (principal); L97.823 Non-pressure chronic ulcer of other part of left lower leg with necrosis of muscle; I73.9 Peripheral vascular disease, unspecified; M20.42 Other hammer toe(s) (acquired), left foot; M20.41 Other hammer toe(s) (acquired), right foot; M21.42 Flat foot [pes planus] (acquired), left foot; M79.605 Pain in left leg; Z79.899 Other long term (current) drug therapy; Z79.82 Long term (current) use of aspirin | CPT/HCPCS: 11043; 11046; A6253; J7040 ==

== ENCOUNTER 2021-01-31 08:55 | Outpatient (CLI) | payer MEDICARE, OTHER ==
[2021-01-31] MEDS ORDERED: LIDOCAINE SOLN 4% 50 ML BOTTLE ONE (08:58)
[2021-01-31] MEDS ORDERED: GENTAMICIN 0.1% CREAM 15 GM TUBE ONE (09:48)
[2021-01-31] MEDS ORDERED: CLOTRIMAZOLE 1% 15 GM TUBE TP ONE (09:48)
[2021-02-10] MEDS ORDERED: CLOP75TA15 PO (07:49)
[2021-02-10] MEDS ORDERED: EZET10TA32 MT (07:49)
[2021-02-10] MEDS ORDERED: GABA600T12 MT (07:49)
[2021-02-10] MEDS ORDERED: LEVO750T46 MT (07:49)
[2021-02-10] MEDS ORDERED: LEVO75TA7 MT (07:49)
[2021-02-10] MEDS ORDERED: LISI10TA29 MT (07:49)
[2021-02-10] MEDS ORDERED: WALK1EAC55 MC (07:50)
== END 2021-01-31 23:59 | disposition home health service (06) ==
LOC: WOU 08:55
PROVIDERS: ATTEND Podiatrist Foot & Ankle Surgery
DX: I87.312 Chronic venous hypertension (idiopathic) with ulcer of left lower extremity (principal); I70.242 Atherosclerosis of native arteries of left leg with ulceration of calf; I70.243 Atherosclerosis of native arteries of left leg with ulceration of ankle; L97.323 Non-pressure chronic ulcer of left ankle with necrosis of muscle; L97.223 Non-pressure chronic ulcer of left calf with necrosis of muscle; M20.42 Other hammer toe(s) (acquired), left foot; M20.41 Other hammer toe(s) (acquired), right foot; M21.42 Flat foot [pes planus] (acquired), left foot; M79.605 Pain in left leg; I10 Essential (primary) hypertension; E03.9 Hypothyroidism, unspecified; Z79.899 Other long term (current) drug therapy
CPT/HCPCS: 11043; 11046; A6253; 15275

== ENCOUNTER 2021-02-01 09:17 | Outpatient (CLI) | payer MEDICARE, OTHER | END 2021-02-01 23:59 | disposition home or self-care (01) | LOC: US 09:17 | PROVIDERS: ATTEND Internal Medicine | DX: J35.2 Hypertrophy of adenoids (principal); E03.9 Hypothyroidism, unspecified | CPT/HCPCS: 70360-TC; 76536-TC ==

== ENCOUNTER 2021-02-03 10:00 | Outpatient (CLI) | payer MEDICARE, OTHER ==
[2021-02-10] MEDS ORDERED: GABA600T12 MT (07:49)
[2021-02-10] MEDS ORDERED: CLOP75TA15 PO (07:49)
[2021-02-10] MEDS ORDERED: LISI10TA29 MT (07:49)
[2021-02-10] MEDS ORDERED: LEVO75TA7 MT (07:49)
[2021-02-10] MEDS ORDERED: EZET10TA32 MT (07:49)
[2021-02-10] MEDS ORDERED: LEVO750T46 MT (07:49)
[2021-02-10] MEDS ORDERED: WALK1EAC55 MC (07:50)
== END 2021-02-03 23:59 | disposition home or self-care (01) ==
LOC: LAB 10:00
PROVIDERS: ATTEND Podiatrist Foot & Ankle Surgery
DX: Z01.818 Encounter for other preprocedural examination (principal); Z20.822 Contact with and (suspected) exposure to COVID-19; I87.312 Chronic venous hypertension (idiopathic) with ulcer of left lower extremity; L97.929 Non-pressure chronic ulcer of unspecified part of left lower leg with unspecified severity
CPT/HCPCS: C9803; U0003

== ENCOUNTER → 2021-02-03 | Outpatient (CLI) | payer MEDICARE, OTHER ==
[~2021-02-03] MED LIST changes: +CLOP75TA15 PO; +CLOTRIMAZOLE 1% 15 GM TUBE TP ONE; +EZET10TA32 MT; +GABA600T12 MT; +GENTAMICIN 0.1% CREAM 15 GM TUBE ONE; +LEVO750T46 MT; +LEVO75TA7 MT; +LISI10TA29 MT; +WALK1EAC55 MC
[2021-02-03 10:30] LABS: BASOPHILS % (AUTO) 0.2 % (0.0-2.0); HEMATOCRIT 31 % (33-45); HEMOGLOBIN 10.2 g/dL (11.5-14.8); LYMPHOCYTES # (AUTO) 0.8 K/uL (0.8-4.8); LYMPHOCYTES % (AUTO) 10.6 % (20.0-44.0); MEAN CORPUSCULAR HGB CONC 33 g/dl (31.0-36.0); MEAN CORPUSCULAR VOLUME 83 fL (82-100); MONOCYTES # (AUTO) 0.4 K/uL (0.1-1.30); MONOCYTES % (AUTO) 4.4 % (2.0-12.0); NEUTROPHILS # (AUTO) 6.6 K/uL (1.8-8.9); NEUTROPHILS % (AUTO) 82.8 % (43.0-81.0); PLATELET COUNT (AUTO) 241 K/uL (150-450); RED BLOOD CELL COUNT(AUTO) 3.73 MIL/uL (4.0-5.2); WHITE BLOOD COUNT (AUTO) 7.9 K/uL (4.3-11.0)
[2021-02-03 10:47] LABS: ALBUMIN 2.9 g/dL (3.4-5.0); BILIRUBIN,TOTAL 0.2 mg/dL (0.2-1.0); CALCIUM, SERUM 8.7 mg/dL (8.5-10.1); CREATININE 0.8 mg/dL (0.6-1.3); POTASSIUM 3.9 mmol/L (3.5-5.1); TOTAL PROTEIN, SERUM 6.9 g/dL (6.4-8.2)
== END | disposition home or self-care (01) ==
LOC: WOU 08:50
PROVIDERS: ATTEND Podiatrist Foot & Ankle Surgery
DX: I87.312 Chronic venous hypertension (idiopathic) with ulcer of left lower extremity (principal); I70.242 Atherosclerosis of native arteries of left leg with ulceration of calf; I70.243 Atherosclerosis of native arteries of left leg with ulceration of ankle; L97.223 Non-pressure chronic ulcer of left calf with necrosis of muscle; L97.323 Non-pressure chronic ulcer of left ankle with necrosis of muscle; M21.42 Flat foot [pes planus] (acquired), left foot; M20.41 Other hammer toe(s) (acquired), right foot; M20.42 Other hammer toe(s) (acquired), left foot; E03.9 Hypothyroidism, unspecified; I10 Essential (primary) hypertension; Z01.810 Encounter for preprocedural cardiovascular examination; Z01.812 Encounter for preprocedural laboratory examination
CPT/HCPCS: 11043; 11046; 36415; 71046; 80053; 83036; 85025; 85730; 93005; A6253; J7040

== ENCOUNTER 2021-02-07 08:40 | Outpatient (CLI) | payer MEDICARE, OTHER ==
[2021-02-07] MEDS ORDERED: LIDOCAINE SOLN 4% 50 ML BOTTLE ONE (08:56)
[2021-02-07] MEDS ORDERED: GENTAMICIN 0.1% CREAM 15 GM TUBE ONE (08:57)
[2021-02-07] MEDS ORDERED: CLOTRIMAZOLE 1% 15 GM TUBE TP ONE (08:57)
[2021-02-10] MEDS ORDERED: GABA600T12 MT (07:49)
[2021-02-10] MEDS ORDERED: LEVO750T46 MT (07:49)
[2021-02-10] MEDS ORDERED: CLOP75TA15 PO (07:49)
[2021-02-10] MEDS ORDERED: LISI10TA29 MT (07:49)
[2021-02-10] MEDS ORDERED: EZET10TA32 MT (07:49)
[2021-02-10] MEDS ORDERED: LEVO75TA7 MT (07:49)
[2021-02-10] MEDS ORDERED: WALK1EAC55 MC (07:50)
== END 2021-02-07 23:59 | disposition home health service (06) ==
LOC: WOU 08:40
PROVIDERS: ATTEND Podiatrist Foot & Ankle Surgery
DX: I87.312 Chronic venous hypertension (idiopathic) with ulcer of left lower extremity (principal); L97.323 Non-pressure chronic ulcer of left ankle with necrosis of muscle; L97.223 Non-pressure chronic ulcer of left calf with necrosis of muscle; I70.243 Atherosclerosis of native arteries of left leg with ulceration of ankle; I70.242 Atherosclerosis of native arteries of left leg with ulceration of calf; A49.02 Methicillin resistant Staphylococcus aureus infection, unspecified site; M20.41 Other hammer toe(s) (acquired), right foot; M20.42 Other hammer toe(s) (acquired), left foot; M21.42 Flat foot [pes planus] (acquired), left foot; E03.9 Hypothyroidism, unspecified; I10 Essential (primary) hypertension
CPT/HCPCS: 11043; 11046; A6253; J7040

== ENCOUNTER 2021-02-08 12:30 | Outpatient (CLI) | payer MEDICARE, OTHER ==
[2021-02-10] MEDS ORDERED: CLOP75TA15 PO (07:49)
[2021-02-10] MEDS ORDERED: GABA600T12 MT (07:49)
[2021-02-10] MEDS ORDERED: LEVO75TA7 MT (07:49)
[2021-02-10] MEDS ORDERED: LEVO750T46 MT (07:49)
[2021-02-10] MEDS ORDERED: LISI10TA29 MT (07:49)
[2021-02-10] MEDS ORDERED: EZET10TA32 MT (07:49)
[2021-02-10] MEDS ORDERED: WALK1EAC55 MC (07:50)
== END 2021-02-08 23:59 | disposition home or self-care (01) ==
LOC: MSC 12:30
PROVIDERS: ATTEND Internal Medicine
DX: Z01.818 Encounter for other preprocedural examination (principal); S81.809D Unspecified open wound, unspecified lower leg, subsequent encounter; D64.9 Anemia, unspecified; I10 Essential (primary) hypertension; E78.5 Hyperlipidemia, unspecified; E03.9 Hypothyroidism, unspecified; Z79.890 Hormone replacement therapy; I87.2 Venous insufficiency (chronic) (peripheral); M19.90 Unspecified osteoarthritis, unspecified site; M54.9 Dorsalgia, unspecified; R13.10 Dysphagia, unspecified; Z86.79 Personal history of other diseases of the circulatory system

== ENCOUNTER → 2021-02-10 | Day surgery (SDC) | payer MEDICARE, OTHER ==
[~2021-02-10] MED LIST changes: +ANESTHESIA TRAY IN PYXIS 1 EA TRAY MC ONE; +BUPIVACAINE 0.5 % PF 150 MG/30 ML VIAL ONE; +BUPIVACAINE MPF 0.5% W/EPI INJ 30 ML VIAL ONE; -CLOTRIMAZOLE 1% 15 GM TUBE TP ONE; +FENTANYL PF 250MCG/5ML AMPUL ONE; -GENTAMICIN 0.1% CREAM 15 GM TUBE ONE; +LIDOCAINE 1% INJ 50 ML MDV IJ ONE; -LIDOCAINE SOLN 4% 50 ML BOTTLE ONE; +MIDAZOLAM HCL 2 MG/2ML VIAL ONE
== END | disposition home or self-care (01) ==
LOC: DS 05:52
PROVIDERS: ATTEND Podiatrist Foot & Ankle Surgery
DX: I87.312 Chronic venous hypertension (idiopathic) with ulcer of left lower extremity (principal); I10 Essential (primary) hypertension; E78.5 Hyperlipidemia, unspecified; E03.9 Hypothyroidism, unspecified; D64.9 Anemia, unspecified; Z98.890 Other specified postprocedural states; Z79.899 Other long term (current) drug therapy
CPT/HCPCS: 11043; 87070; 87075; 87077; 87186; A6209; J0690; J2250; J2405; J2704; J2765; J3010; J3490

== ENCOUNTER 2021-02-14 08:40 | Outpatient (CLI) | payer MEDICARE, OTHER ==
[~2021-02-14 08:40] MED LIST changes: -ANESTHESIA TRAY IN PYXIS 1 EA TRAY MC ONE; -BUPIVACAINE 0.5 % PF 150 MG/30 ML VIAL ONE; -BUPIVACAINE MPF 0.5% W/EPI INJ 30 ML VIAL ONE; -FENTANYL PF 250MCG/5ML AMPUL ONE; -LIDOCAINE 1% INJ 50 ML MDV IJ ONE; -MIDAZOLAM HCL 2 MG/2ML VIAL ONE
[2021-02-14] MEDS ORDERED: LIDOCAINE SOLN 4% 50 ML BOTTLE ONE (08:54)
== END 2021-02-14 23:59 | disposition home health service (06) ==
LOC: WOU 08:40
PROVIDERS: ATTEND Podiatrist Foot & Ankle Surgery
DX: I87.312 Chronic venous hypertension (idiopathic) with ulcer of left lower extremity (principal); L97.823 Non-pressure chronic ulcer of other part of left lower leg with necrosis of muscle; I70.248 Atherosclerosis of native arteries of left leg with ulceration of other part of lower leg; M79.605 Pain in left leg; M20.41 Other hammer toe(s) (acquired), right foot; M20.42 Other hammer toe(s) (acquired), left foot; M21.42 Flat foot [pes planus] (acquired), left foot
CPT/HCPCS: 11043; 11046; A6253

== ENCOUNTER 2021-02-17 08:15 | Outpatient (CLI) | payer MEDICARE, OTHER | END 2021-02-17 23:59 | disposition home health service (06) | LOC: WOU 08:15 | PROVIDERS: ATTEND Podiatrist Foot & Ankle Surgery | DX: I87.312 Chronic venous hypertension (idiopathic) with ulcer of left lower extremity (principal); L97.225 Non-pressure chronic ulcer of left calf with muscle involvement without evidence of necrosis; I70.248 Atherosclerosis of native arteries of left leg with ulceration of other part of lower leg; I87.301 Chronic venous hypertension (idiopathic) without complications of right lower extremity; M20.42 Other hammer toe(s) (acquired), left foot; M20.41 Other hammer toe(s) (acquired), right foot; I10 Essential (primary) hypertension; E03.9 Hypothyroidism, unspecified; Z79.890 Hormone replacement therapy; Z79.899 Other long term (current) drug therapy | CPT/HCPCS: 11043; 97606-TC ==

== ENCOUNTER 2021-02-21 08:30 | Outpatient (CLI) | payer MEDICARE, OTHER ==
[2021-02-21] MEDS ORDERED: LIDOCAINE SOLN 4% 50 ML BOTTLE ONE (08:35)
[2021-02-21] MEDS ORDERED: GENTAMICIN 0.1% CREAM 15 GM TUBE ONE (09:34)
[2021-02-21] MEDS ORDERED: MUPIROCIN 2% CREAM 15 GM TUBE TP ONE (09:34)
[2021-02-21] MEDS ORDERED: CLOTRIMAZOLE 1% 15 GM TUBE TP ONE (09:35)
== END 2021-02-21 23:59 | disposition home health service (06) ==
LOC: WOU 08:30
PROVIDERS: ATTEND Podiatrist Foot & Ankle Surgery
DX: I87.312 Chronic venous hypertension (idiopathic) with ulcer of left lower extremity (principal); L97.225 Non-pressure chronic ulcer of left calf with muscle involvement without evidence of necrosis; M21.42 Flat foot [pes planus] (acquired), left foot; M20.42 Other hammer toe(s) (acquired), left foot; M20.41 Other hammer toe(s) (acquired), right foot; M79.605 Pain in left leg; I73.9 Peripheral vascular disease, unspecified; Z79.82 Long term (current) use of aspirin; Z79.899 Other long term (current) drug therapy; E03.9 Hypothyroidism, unspecified; I10 Essential (primary) hypertension; Z79.890 Hormone replacement therapy
CPT/HCPCS: 11042; 11045; 87070; 87075; A6253; 87186-TC

== ENCOUNTER 2021-02-24 08:30 | Outpatient (CLI) | payer MEDICARE, OTHER ==
[2021-02-24] MEDS ORDERED: LIDOCAINE SOLN 4% 50 ML BOTTLE ONE (08:57)
[2021-02-24] MEDS ORDERED: MUPIROCIN 2% CREAM 15 GM TUBE TP ONE (09:38)
== END 2021-02-24 23:59 | disposition home health service (06) ==
LOC: WOU 08:30
PROVIDERS: ATTEND Podiatrist Foot & Ankle Surgery
DX: I87.312 Chronic venous hypertension (idiopathic) with ulcer of left lower extremity (principal); L97.825 Non-pressure chronic ulcer of other part of left lower leg with muscle involvement without evidence of necrosis; I73.9 Peripheral vascular disease, unspecified; M20.42 Other hammer toe(s) (acquired), left foot; M20.41 Other hammer toe(s) (acquired), right foot; M21.42 Flat foot [pes planus] (acquired), left foot; M79.605 Pain in left leg; I10 Essential (primary) hypertension; Z79.82 Long term (current) use of aspirin; Z79.899 Other long term (current) drug therapy
CPT/HCPCS: 11042; 11045; A6253

== ENCOUNTER 2021-03-03 08:35 | Outpatient (CLI) | payer MEDICARE, OTHER ==
[2021-03-03] MEDS ORDERED: LIDOCAINE SOLN 4% 50 ML BOTTLE ONE (08:48)
[2021-03-03] MEDS ORDERED: GENTAMICIN 0.1% CREAM 15 GM TUBE ONE (09:06)
[2021-03-03] MEDS ORDERED: MUPIROCIN 2% CREAM 15 GM TUBE TP ONE (09:07)
[2021-03-03] MEDS ORDERED: CLOTRIMAZOLE 1% 15 GM TUBE TP ONE (09:10)
== END 2021-03-03 23:59 | disposition home health service (06) ==
LOC: WOU 08:35
PROVIDERS: ATTEND Podiatrist Foot & Ankle Surgery
DX: I87.312 Chronic venous hypertension (idiopathic) with ulcer of left lower extremity (principal); L97.825 Non-pressure chronic ulcer of other part of left lower leg with muscle involvement without evidence of necrosis; I73.9 Peripheral vascular disease, unspecified; M79.605 Pain in left leg; M20.42 Other hammer toe(s) (acquired), left foot; M20.41 Other hammer toe(s) (acquired), right foot; M21.42 Flat foot [pes planus] (acquired), left foot; Z79.82 Long term (current) use of aspirin; Z79.899 Other long term (current) drug therapy
CPT/HCPCS: 11043; 11046; A6253

== ENCOUNTER 2021-03-07 08:45 | Outpatient (CLI) | payer MEDICARE, OTHER ==
[~2021-03-07 08:45] MED LIST changes: +LIDOCAINE SOLN 4% 50 ML BOTTLE ONE
[2021-03-07] MEDS ORDERED: CLOTRIMAZOLE 1% 15 GM TUBE TP ONE (09:08)
== END 2021-03-07 23:59 | disposition home health service (06) ==
LOC: WOU 08:45
PROVIDERS: ATTEND Podiatrist Foot & Ankle Surgery
DX: I87.312 Chronic venous hypertension (idiopathic) with ulcer of left lower extremity (principal); L97.825 Non-pressure chronic ulcer of other part of left lower leg with muscle involvement without evidence of necrosis; S90.821A Blister (nonthermal), right foot, initial encounter; Y93.01 Activity, walking, marching and hiking; Y92.89 Other specified places as the place of occurrence of the external cause; I73.9 Peripheral vascular disease, unspecified; M79.605 Pain in left leg; M20.42 Other hammer toe(s) (acquired), left foot; M20.41 Other hammer toe(s) (acquired), right foot; M21.42 Flat foot [pes planus] (acquired), left foot; Z79.82 Long term (current) use of aspirin; Z79.899 Other long term (current) drug therapy
CPT/HCPCS: 11043; 11046; A6253

== ENCOUNTER 2021-03-10 08:30 | Outpatient (CLI) | payer MEDICARE, OTHER ==
[~2021-03-10 08:30] MED LIST changes: -LIDOCAINE SOLN 4% 50 ML BOTTLE ONE
[2021-03-10] MEDS ORDERED: LIDOCAINE SOLN 4% 50 ML BOTTLE ONE (08:31)
[2021-03-10] MEDS ORDERED: GENTAMICIN 0.1% CREAM 15 GM TUBE ONE (09:49)
[2021-03-10] MEDS ORDERED: MUPIROCIN 2% CREAM 15 GM TUBE TP ONE (09:49)
[2021-03-10] MEDS ORDERED: CLOTRIMAZOLE 1% 15 GM TUBE TP ONE (09:50)
== END 2021-03-10 23:59 | disposition home health service (06) ==
LOC: WOU 08:30
PROVIDERS: ATTEND Podiatrist Foot & Ankle Surgery
DX: I87.313 Chronic venous hypertension (idiopathic) with ulcer of bilateral lower extremity (principal); L97.825 Non-pressure chronic ulcer of other part of left lower leg with muscle involvement without evidence of necrosis; L97.418 Non-pressure chronic ulcer of right heel and midfoot with other specified severity; S90.821D Blister (nonthermal), right foot, subsequent encounter; X58.XXXD Exposure to other specified factors, subsequent encounter; I73.9 Peripheral vascular disease, unspecified; M20.42 Other hammer toe(s) (acquired), left foot; M20.41 Other hammer toe(s) (acquired), right foot; M21.42 Flat foot [pes planus] (acquired), left foot; I10 Essential (primary) hypertension; I87.2 Venous insufficiency (chronic) (peripheral); Z79.82 Long term (current) use of aspirin; Z79.899 Other long term (current) drug therapy
CPT/HCPCS: 11043; 11046; A6253

== ENCOUNTER 2021-03-10 09:43 | Outpatient (CLI) | payer MEDICARE, OTHER ==
[2021-03-10 13:57] LABS: C-REACTIVE PROTEIN 4.4 mg/dL (0.0-0.9)
== END 2021-03-10 23:59 | disposition home or self-care (01) ==
LOC: MSC 09:43
PROVIDERS: ATTEND Internal Medicine
DX: G62.9 Polyneuropathy, unspecified (principal); S81.809D Unspecified open wound, unspecified lower leg, subsequent encounter; R13.10 Dysphagia, unspecified; M85.80 Other specified disorders of bone density and structure, unspecified site; D64.9 Anemia, unspecified; I10 Essential (primary) hypertension; E78.5 Hyperlipidemia, unspecified; E03.9 Hypothyroidism, unspecified; Z79.890 Hormone replacement therapy; I87.2 Venous insufficiency (chronic) (peripheral); M54.9 Dorsalgia, unspecified; M19.90 Unspecified osteoarthritis, unspecified site; Z86.79 Personal history of other diseases of the circulatory system; Z79.899 Other long term (current) drug therapy
CPT/HCPCS: 36415; 84439; 85652; 86038; 86140; 86431; G0463

== ENCOUNTER 2021-03-14 08:15 | Outpatient (CLI) | payer MEDICARE, OTHER ==
[2021-03-14] MEDS ORDERED: LIDOCAINE SOLN 4% 50 ML BOTTLE ONE (08:28)
[2021-03-14] MEDS ORDERED: CLOTRIMAZOLE 1% 15 GM TUBE TP ONE (09:22)
== END 2021-03-14 23:59 | disposition home health service (06) ==
LOC: WOU 08:15
PROVIDERS: ATTEND Podiatrist Foot & Ankle Surgery
DX: I87.313 Chronic venous hypertension (idiopathic) with ulcer of bilateral lower extremity (principal); L97.825 Non-pressure chronic ulcer of other part of left lower leg with muscle involvement without evidence of necrosis; L97.418 Non-pressure chronic ulcer of right heel and midfoot with other specified severity; L03.115 Cellulitis of right lower limb; I73.9 Peripheral vascular disease, unspecified; M79.605 Pain in left leg; M20.42 Other hammer toe(s) (acquired), left foot; M20.41 Other hammer toe(s) (acquired), right foot; M21.42 Flat foot [pes planus] (acquired), left foot; I10 Essential (primary) hypertension; Z79.82 Long term (current) use of aspirin; Z79.899 Other long term (current) drug therapy
CPT/HCPCS: 11042; 11043; 11046; 87070; 87075; A6253

== ENCOUNTER 2021-03-16 08:28 | Outpatient (CLI) | payer MEDICARE, OTHER | END 2021-03-16 23:59 | disposition home or self-care (01) | LOC: VASLAB 08:28 | PROVIDERS: ATTEND Internal Medicine | DX: I87.2 Venous insufficiency (chronic) (peripheral) (principal); I73.9 Peripheral vascular disease, unspecified; L97.829 Non-pressure chronic ulcer of other part of left lower leg with unspecified severity; Z95.0 Presence of cardiac pacemaker; I10 Essential (primary) hypertension; Z79.899 Other long term (current) drug therapy | CPT/HCPCS: A6253; G0463 ==

== ENCOUNTER 2021-03-17 08:45 | Outpatient (CLI) | payer MEDICARE, OTHER ==
[~2021-03-17 08:45] MED LIST changes: +LIDOCAINE SOLN 4% 50 ML BOTTLE ONE
[2021-03-17] MEDS ORDERED: COLLAGENASE 5 GM TUBE UD TP ONE ×2 (09:21→09:22)
[2021-03-17] MEDS ORDERED: CLOTRIMAZOLE 1% 15 GM TUBE TP ONE (09:22)
[2021-03-17] MEDS ORDERED: TRIAMCINOLONE ACETONIDE 0.1% CR 15 GM TUBE TP ONE (09:26)
== END 2021-03-17 23:59 | disposition home health service (06) ==
LOC: WOU 08:45
PROVIDERS: ATTEND Podiatrist Foot & Ankle Surgery
DX: I87.312 Chronic venous hypertension (idiopathic) with ulcer of left lower extremity (principal); L97.822 Non-pressure chronic ulcer of other part of left lower leg with fat layer exposed; I73.9 Peripheral vascular disease, unspecified; M79.605 Pain in left leg; M20.42 Other hammer toe(s) (acquired), left foot; M20.41 Other hammer toe(s) (acquired), right foot; M21.42 Flat foot [pes planus] (acquired), left foot; Z79.82 Long term (current) use of aspirin; Z79.899 Other long term (current) drug therapy
CPT/HCPCS: 11043; 11046; A6253

== ENCOUNTER 2021-03-21 08:20 | Outpatient (CLI) | payer MEDICARE, OTHER ==
[~2021-03-21 08:20] MED LIST changes: -LIDOCAINE SOLN 4% 50 ML BOTTLE ONE
[2021-03-21] MEDS ORDERED: LIDOCAINE SOLN 4% 50 ML BOTTLE ONE (08:21)
[2021-03-21] MEDS ORDERED: COLLAGENASE 5 GM TUBE UD TP ONE (09:34)
[2021-03-21] MEDS ORDERED: CLOTRIMAZOLE 1% 15 GM TUBE TP ONE (09:35)
[2021-03-21] MEDS ORDERED: TRIAMCINOLONE ACETONIDE 0.1% CR 15 GM TUBE TP ONE (09:36)
== END 2021-03-21 23:59 | disposition home health service (06) ==
LOC: WOU 08:20
PROVIDERS: ATTEND Podiatrist Foot & Ankle Surgery
DX: I87.312 Chronic venous hypertension (idiopathic) with ulcer of left lower extremity (principal); L97.825 Non-pressure chronic ulcer of other part of left lower leg with muscle involvement without evidence of necrosis; I73.9 Peripheral vascular disease, unspecified; M79.605 Pain in left leg; M20.42 Other hammer toe(s) (acquired), left foot; M20.41 Other hammer toe(s) (acquired), right foot; M21.42 Flat foot [pes planus] (acquired), left foot
CPT/HCPCS: 11043; 11046; A6253

== ENCOUNTER 2021-03-25 08:00 | Outpatient (CLI) | payer MEDICARE, OTHER ==
[2021-03-25] MEDS ORDERED: LIDOCAINE SOLN 4% 50 ML BOTTLE ONE ×2 (08:22→09:58)
[2021-03-25] MEDS ORDERED: GENTAMICIN 0.1% CREAM 15 GM TUBE ONE (10:06)
[2021-03-25] MEDS ORDERED: MUPIROCIN 2% CREAM 15 GM TUBE TP ONE (10:07)
[2021-03-25] MEDS ORDERED: CLOTRIMAZOLE 1% 15 GM TUBE TP ONE (10:07)
== END 2021-03-25 23:59 | disposition home health service (06) ==
LOC: WOU 08:00
PROVIDERS: ATTEND Podiatrist Foot & Ankle Surgery
DX: I87.312 Chronic venous hypertension (idiopathic) with ulcer of left lower extremity (principal); L97.825 Non-pressure chronic ulcer of other part of left lower leg with muscle involvement without evidence of necrosis; I73.9 Peripheral vascular disease, unspecified; I89.0 Lymphedema, not elsewhere classified; M79.605 Pain in left leg; M20.42 Other hammer toe(s) (acquired), left foot; M20.41 Other hammer toe(s) (acquired), right foot; M21.42 Flat foot [pes planus] (acquired), left foot
CPT/HCPCS: 11043; 11046; J7040; G0277

== ENCOUNTER 2021-03-29 08:00 | Outpatient (CLI) | payer MEDICARE, OTHER ==
[2021-03-29] MEDS ORDERED: LIDOCAINE SOLN 4% 50 ML BOTTLE ONE (08:41)
[2021-03-29] MEDS ORDERED: MUPIROCIN 2% CREAM 15 GM TUBE TP ONE ×2 (09:46→09:47)
[2021-03-29] MEDS ORDERED: CLOTRIMAZOLE 1% 15 GM TUBE TP ONE (09:47)
[2021-03-29] MEDS ORDERED: GENTAMICIN 0.1% CREAM 15 GM TUBE ONE (09:47)
== END 2021-03-29 23:59 | disposition home health service (06) ==
LOC: WOU 08:00
PROVIDERS: ATTEND Podiatrist Foot & Ankle Surgery
DX: I87.312 Chronic venous hypertension (idiopathic) with ulcer of left lower extremity (principal); L97.825 Non-pressure chronic ulcer of other part of left lower leg with muscle involvement without evidence of necrosis; I73.9 Peripheral vascular disease, unspecified; I89.0 Lymphedema, not elsewhere classified; M79.605 Pain in left leg; M20.42 Other hammer toe(s) (acquired), left foot; M20.41 Other hammer toe(s) (acquired), right foot; M21.42 Flat foot [pes planus] (acquired), left foot; I10 Essential (primary) hypertension; Z79.82 Long term (current) use of aspirin
CPT/HCPCS: 11043; 11046; J7040

== ENCOUNTER 2021-04-01 08:00 | Outpatient (CLI) | payer MEDICARE, OTHER ==
[2021-04-01] MEDS ORDERED: GENTAMICIN 80 MG/2 ML VIAL ONE (08:57)
[2021-04-01] MEDS ORDERED: GENTAMICIN 0.1% CREAM 15 GM TUBE ONE (09:24)
[2021-04-01] MEDS ORDERED: MUPIROCIN 2% CREAM 15 GM TUBE TP ONE (09:24)
[2021-04-01] MEDS ORDERED: CLOTRIMAZOLE 1% 15 GM TUBE TP ONE (09:25)
== END 2021-04-01 23:59 | disposition home health service (06) ==
LOC: WOU 08:00
PROVIDERS: ATTEND Podiatrist Foot & Ankle Surgery
DX: I87.312 Chronic venous hypertension (idiopathic) with ulcer of left lower extremity (principal); L97.825 Non-pressure chronic ulcer of other part of left lower leg with muscle involvement without evidence of necrosis; I89.0 Lymphedema, not elsewhere classified; I73.9 Peripheral vascular disease, unspecified; M79.605 Pain in left leg; M20.42 Other hammer toe(s) (acquired), left foot; M20.41 Other hammer toe(s) (acquired), right foot; M21.42 Flat foot [pes planus] (acquired), left foot; Z79.82 Long term (current) use of aspirin; Z79.899 Other long term (current) drug therapy
CPT/HCPCS: 11043; 11046; J1580; J7040

== ENCOUNTER 2021-04-05 08:10 | Outpatient (CLI) | payer MEDICARE, OTHER ==
[2021-04-05] MEDS ORDERED: LIDOCAINE SOLN 4% 50 ML BOTTLE ONE (08:26)
[2021-04-05] MEDS ORDERED: GENTAMICIN 0.1% CREAM 15 GM TUBE ONE (08:27)
[2021-04-05] MEDS ORDERED: CLOTRIMAZOLE 1% 15 GM TUBE TP ONE (08:27)
[2021-04-05] MEDS ORDERED: MUPIROCIN 2% CREAM 15 GM TUBE TP ONE (08:27)
[2021-04-05] MEDS ORDERED: GENTAMICIN 80 MG/2 ML VIAL IV ONE (09:00)
== END 2021-04-05 23:59 | disposition home health service (06) ==
LOC: WOU 08:10
PROVIDERS: ATTEND Podiatrist Foot & Ankle Surgery
DX: I87.312 Chronic venous hypertension (idiopathic) with ulcer of left lower extremity (principal); L97.825 Non-pressure chronic ulcer of other part of left lower leg with muscle involvement without evidence of necrosis; I73.9 Peripheral vascular disease, unspecified; I89.0 Lymphedema, not elsewhere classified; M79.605 Pain in left leg; M20.42 Other hammer toe(s) (acquired), left foot; M20.41 Other hammer toe(s) (acquired), right foot; M21.42 Flat foot [pes planus] (acquired), left foot; I10 Essential (primary) hypertension; Z79.82 Long term (current) use of aspirin; Z79.899 Other long term (current) drug therapy
CPT/HCPCS: 11042; 11045; J1580; J7040

== ENCOUNTER 2021-04-08 08:15 | Outpatient (CLI) | payer MEDICARE, OTHER ==
[2021-04-08] MEDS ORDERED: LIDOCAINE SOLN 4% 50 ML BOTTLE ONE ×2 (08:27→08:28)
[2021-04-08] MEDS ORDERED: MUPIROCIN 2% CREAM 15 GM TUBE TP ONE (08:58)
[2021-04-08] MEDS ORDERED: GENTAMICIN 0.1% CREAM 15 GM TUBE ONE ×2 (08:58)
[2021-04-08] MEDS ORDERED: CLOTRIMAZOLE 1% 15 GM TUBE TP ONE (08:59)
[2021-04-08] MEDS ORDERED: GENTAMICIN 80 MG/2 ML VIAL IV ONE (09:00)
== END 2021-04-08 23:59 | disposition home health service (06) ==
LOC: WOU 08:15
PROVIDERS: ATTEND Podiatrist Foot & Ankle Surgery
DX: I87.312 Chronic venous hypertension (idiopathic) with ulcer of left lower extremity (principal); L97.825 Non-pressure chronic ulcer of other part of left lower leg with muscle involvement without evidence of necrosis; I73.9 Peripheral vascular disease, unspecified; I89.0 Lymphedema, not elsewhere classified; M20.42 Other hammer toe(s) (acquired), left foot; M20.41 Other hammer toe(s) (acquired), right foot; M21.42 Flat foot [pes planus] (acquired), left foot; M79.605 Pain in left leg; Z79.82 Long term (current) use of aspirin; Z79.899 Other long term (current) drug therapy
CPT/HCPCS: 11042; 11045; J1580; J7040

== ENCOUNTER 2021-04-12 08:30 | Outpatient (CLI) | payer MEDICARE, OTHER ==
[~2021-04-12 08:30] MED LIST changes: +CLOTRIMAZOLE 1% 15 GM TUBE TP ONE; +GENTAMICIN 0.1% CREAM 15 GM TUBE ONE; +LIDOCAINE SOLN 4% 50 ML BOTTLE ONE; +MUPIROCIN 2% CREAM 15 GM TUBE TP ONE
[2021-04-12] MEDS ORDERED: GENTAMICIN 80 MG/2 ML VIAL IV ONE (09:00)
== END 2021-04-12 23:59 | disposition home or self-care (01) ==
LOC: WOU 08:30
PROVIDERS: ATTEND Podiatrist Foot & Ankle Surgery
DX: I87.312 Chronic venous hypertension (idiopathic) with ulcer of left lower extremity (principal); L97.825 Non-pressure chronic ulcer of other part of left lower leg with muscle involvement without evidence of necrosis; I73.9 Peripheral vascular disease, unspecified; M20.42 Other hammer toe(s) (acquired), left foot; M20.41 Other hammer toe(s) (acquired), right foot; M21.42 Flat foot [pes planus] (acquired), left foot; M79.605 Pain in left leg; Z79.82 Long term (current) use of aspirin; Z79.899 Other long term (current) drug therapy
CPT/HCPCS: 11042; 11045; J1580; J7040

== ENCOUNTER 2021-04-15 08:00 | Outpatient (CLI) | payer MEDICARE, OTHER ==
[~2021-04-15 08:00] MED LIST changes: -CLOTRIMAZOLE 1% 15 GM TUBE TP ONE; -GENTAMICIN 0.1% CREAM 15 GM TUBE ONE; -LIDOCAINE SOLN 4% 50 ML BOTTLE ONE; -MUPIROCIN 2% CREAM 15 GM TUBE TP ONE
[2021-04-15] MEDS ORDERED: LIDOCAINE SOLN 4% 50 ML BOTTLE ONE (08:19)
[2021-04-15] MEDS ORDERED: MUPIROCIN 2% CREAM 15 GM TUBE TP ONE (08:55)
[2021-04-15] MEDS ORDERED: GENTAMICIN 0.1% CREAM 15 GM TUBE ONE (08:55)
== END 2021-04-15 23:59 | disposition home health service (06) ==
LOC: WOU 08:00
PROVIDERS: ATTEND Podiatrist Foot & Ankle Surgery
DX: I87.312 Chronic venous hypertension (idiopathic) with ulcer of left lower extremity (principal); L97.825 Non-pressure chronic ulcer of other part of left lower leg with muscle involvement without evidence of necrosis; I73.9 Peripheral vascular disease, unspecified; M20.42 Other hammer toe(s) (acquired), left foot; M20.41 Other hammer toe(s) (acquired), right foot; M21.42 Flat foot [pes planus] (acquired), left foot; I89.0 Lymphedema, not elsewhere classified; M79.605 Pain in left leg; Z79.899 Other long term (current) drug therapy; Z79.82 Long term (current) use of aspirin
CPT/HCPCS: 11042; 11045; J7040

== ENCOUNTER 2021-04-19 08:05 | Outpatient (CLI) | payer MEDICARE, OTHER ==
[2021-04-19] MEDS ORDERED: LIDOCAINE SOLN 4% 50 ML BOTTLE ONE (08:19)
[2021-04-19] MEDS ORDERED: MUPIROCIN 2% CREAM 15 GM TUBE TP ONE (08:20)
[2021-04-19] MEDS ORDERED: GENTAMICIN 0.1% CREAM 15 GM TUBE ONE (08:20)
[2021-04-19] MEDS ORDERED: CLOTRIMAZOLE 1% 15 GM TUBE TP ONE (08:21)
== END 2021-04-19 23:59 | disposition home health service (06) ==
LOC: WOU 08:05
PROVIDERS: ATTEND Podiatrist Foot & Ankle Surgery
DX: I87.312 Chronic venous hypertension (idiopathic) with ulcer of left lower extremity (principal); L97.825 Non-pressure chronic ulcer of other part of left lower leg with muscle involvement without evidence of necrosis; I87.2 Venous insufficiency (chronic) (peripheral); I89.0 Lymphedema, not elsewhere classified; I73.9 Peripheral vascular disease, unspecified; M20.42 Other hammer toe(s) (acquired), left foot; M20.41 Other hammer toe(s) (acquired), right foot; M21.42 Flat foot [pes planus] (acquired), left foot; M79.605 Pain in left leg; I10 Essential (primary) hypertension; Z79.82 Long term (current) use of aspirin; Z79.899 Other long term (current) drug therapy
CPT/HCPCS: 11042; 11045

== ENCOUNTER 2021-04-22 08:10 | Outpatient (CLI) | payer MEDICARE, OTHER ==
[2021-04-22] MEDS ORDERED: LIDOCAINE SOLN 4% 50 ML BOTTLE ONE (08:28)
== END 2021-04-22 23:59 | disposition home health service (06) ==
LOC: WOU 08:10
PROVIDERS: ATTEND Podiatrist Foot & Ankle Surgery
DX: I87.312 Chronic venous hypertension (idiopathic) with ulcer of left lower extremity (principal); L97.822 Non-pressure chronic ulcer of other part of left lower leg with fat layer exposed; I73.9 Peripheral vascular disease, unspecified; I89.0 Lymphedema, not elsewhere classified; M20.42 Other hammer toe(s) (acquired), left foot; M20.41 Other hammer toe(s) (acquired), right foot; M21.42 Flat foot [pes planus] (acquired), left foot; M79.605 Pain in left leg; Z79.82 Long term (current) use of aspirin; Z79.899 Other long term (current) drug therapy
CPT/HCPCS: 11042; 11045; A6253; J7040

== ENCOUNTER 2021-04-26 08:05 | Outpatient (CLI) | payer MEDICARE, OTHER ==
[2021-04-26] MEDS ORDERED: LIDOCAINE SOLN 4% 50 ML BOTTLE ONE (08:18)
[2021-04-26] MEDS ORDERED: GENTAMICIN 0.1% CREAM 15 GM TUBE ONE (08:23)
[2021-04-26] MEDS ORDERED: MUPIROCIN 2% CREAM 15 GM TUBE TP ONE (08:23)
[2021-04-26] MEDS ORDERED: CLOTRIMAZOLE 1% 15 GM TUBE TP ONE (08:23)
== END 2021-04-26 23:59 | disposition home health service (06) ==
LOC: WOU 08:05
PROVIDERS: ATTEND Podiatrist Foot & Ankle Surgery
DX: I87.312 Chronic venous hypertension (idiopathic) with ulcer of left lower extremity (principal); L97.822 Non-pressure chronic ulcer of other part of left lower leg with fat layer exposed; I73.9 Peripheral vascular disease, unspecified; M20.42 Other hammer toe(s) (acquired), left foot; M20.41 Other hammer toe(s) (acquired), right foot; M21.42 Flat foot [pes planus] (acquired), left foot; I89.0 Lymphedema, not elsewhere classified; M79.605 Pain in left leg; Z79.899 Other long term (current) drug therapy; Z79.82 Long term (current) use of aspirin
CPT/HCPCS: 11042; 11045; J7040

== ENCOUNTER 2021-04-29 08:15 | Outpatient (CLI) | payer MEDICARE, OTHER ==
[2021-04-29] MEDS ORDERED: LIDOCAINE SOLN 4% 50 ML BOTTLE ONE (08:22)
[2021-04-29] MEDS ORDERED: GENTAMICIN 0.1% CREAM 15 GM TUBE ONE (12:22)
[2021-04-29] MEDS ORDERED: MUPIROCIN 2% CREAM 15 GM TUBE TP ONE (12:23)
[2021-04-29] MEDS ORDERED: HYDROCORTISONE 1% CREAM 28.35 GM TUBE TP ONE (13:29)
== END 2021-04-29 23:59 | disposition home health service (06) ==
LOC: WOU 08:15
PROVIDERS: ATTEND Podiatrist Foot & Ankle Surgery
DX: I87.312 Chronic venous hypertension (idiopathic) with ulcer of left lower extremity (principal); L97.822 Non-pressure chronic ulcer of other part of left lower leg with fat layer exposed; I73.9 Peripheral vascular disease, unspecified; I89.0 Lymphedema, not elsewhere classified; M20.42 Other hammer toe(s) (acquired), left foot; M20.41 Other hammer toe(s) (acquired), right foot; M21.42 Flat foot [pes planus] (acquired), left foot; M79.605 Pain in left leg; Z79.82 Long term (current) use of aspirin
CPT/HCPCS: 11042; 11045; J7040

== ENCOUNTER 2021-05-03 08:05 | Outpatient (CLI) | payer MEDICARE, OTHER ==
[2021-05-03] MEDS ORDERED: CLOTRIMAZOLE 1% 15 GM TUBE TP ONE (08:21)
[2021-05-03] MEDS ORDERED: MUPIROCIN 2% CREAM 15 GM TUBE TP ONE (08:21)
[2021-05-03] MEDS ORDERED: GENTAMICIN 0.1% CREAM 15 GM TUBE ONE (08:21)
[2021-05-03] MEDS ORDERED: LIDOCAINE SOLN 4% 50 ML BOTTLE ONE (08:34)
== END 2021-05-03 23:59 | disposition home health service (06) ==
LOC: WOU 08:05
PROVIDERS: ATTEND Podiatrist Foot & Ankle Surgery
DX: I87.312 Chronic venous hypertension (idiopathic) with ulcer of left lower extremity (principal); L97.822 Non-pressure chronic ulcer of other part of left lower leg with fat layer exposed; I73.9 Peripheral vascular disease, unspecified; M20.42 Other hammer toe(s) (acquired), left foot; M20.41 Other hammer toe(s) (acquired), right foot; M21.42 Flat foot [pes planus] (acquired), left foot; I89.0 Lymphedema, not elsewhere classified; M79.605 Pain in left leg; Z79.899 Other long term (current) drug therapy; Z79.82 Long term (current) use of aspirin; I10 Essential (primary) hypertension
CPT/HCPCS: 11042; 11045; J7040

== ENCOUNTER → 2021-05-06 | Outpatient (CLI) | payer MEDICARE, OTHER ==
[~2021-05-06] MED LIST changes: +CLOTRIMAZOLE 1% 15 GM TUBE TP ONE; +GENTAMICIN 0.1% CREAM 15 GM TUBE ONE; +LIDOCAINE SOLN 4% 50 ML BOTTLE ONE; +MUPIROCIN 2% CREAM 15 GM TUBE TP ONE
== END | disposition home health service (06) ==
LOC: WOU 08:10
PROVIDERS: ATTEND Podiatrist Foot & Ankle Surgery
DX: I87.312 Chronic venous hypertension (idiopathic) with ulcer of left lower extremity (principal); L97.822 Non-pressure chronic ulcer of other part of left lower leg with fat layer exposed; I73.9 Peripheral vascular disease, unspecified; M21.42 Flat foot [pes planus] (acquired), left foot; M20.42 Other hammer toe(s) (acquired), left foot; M20.41 Other hammer toe(s) (acquired), right foot; I89.0 Lymphedema, not elsewhere classified; M79.605 Pain in left leg; Z79.82 Long term (current) use of aspirin; Z79.899 Other long term (current) drug therapy
CPT/HCPCS: 11042; 11045; J7040

== ENCOUNTER 2021-05-10 08:00 | Outpatient (CLI) | payer MEDICARE, OTHER ==
[~2021-05-10 08:00] MED LIST changes: -CLOTRIMAZOLE 1% 15 GM TUBE TP ONE; -GENTAMICIN 0.1% CREAM 15 GM TUBE ONE; -LIDOCAINE SOLN 4% 50 ML BOTTLE ONE; -MUPIROCIN 2% CREAM 15 GM TUBE TP ONE
[2021-05-10] MEDS ORDERED: LIDOCAINE SOLN 4% 50 ML BOTTLE ONE (08:07)
[2021-05-10] MEDS ORDERED: GENTAMICIN 0.1% CREAM 15 GM TUBE ONE (08:08)
[2021-05-10] MEDS ORDERED: MUPIROCIN 2% CREAM 15 GM TUBE TP ONE (08:08)
[2021-05-10] MEDS ORDERED: CLOTRIMAZOLE 1% 15 GM TUBE TP ONE (08:09)
[2021-05-10] MEDS ORDERED: DAKINS HALF STRENGTH (0.25%) 480 ML BOTTLE ONE (08:27)
== END 2021-05-10 23:59 | disposition home health service (06) ==
LOC: WOU 08:00
PROVIDERS: ATTEND Podiatrist Foot & Ankle Surgery
DX: I87.312 Chronic venous hypertension (idiopathic) with ulcer of left lower extremity (principal); L97.822 Non-pressure chronic ulcer of other part of left lower leg with fat layer exposed; I73.9 Peripheral vascular disease, unspecified; I89.0 Lymphedema, not elsewhere classified; M21.42 Flat foot [pes planus] (acquired), left foot; M20.42 Other hammer toe(s) (acquired), left foot; M20.41 Other hammer toe(s) (acquired), right foot; M79.605 Pain in left leg; Z79.82 Long term (current) use of aspirin; Z79.899 Other long term (current) drug therapy
CPT/HCPCS: 11042; 11045; J7040

== ENCOUNTER 2021-05-13 08:12 | Outpatient (CLI) | payer MEDICARE, OTHER ==
[2021-05-13] MEDS ORDERED: LIDOCAINE SOLN 4% 50 ML BOTTLE ONE (08:27)
[2021-05-13] MEDS ORDERED: DAKINS HALF STRENGTH (0.25%) 480 ML BOTTLE ONE (08:27)
[2021-05-13] MEDS ORDERED: CLOTRIMAZOLE 1% 15 GM TUBE TP ONE (09:04)
[2021-05-13] MEDS ORDERED: MUPIROCIN 2% CREAM 15 GM TUBE TP ONE (09:04)
[2021-05-13] MEDS ORDERED: GENTAMICIN 0.1% CREAM 15 GM TUBE ONE (09:05)
== END 2021-05-13 23:59 | disposition home health service (06) ==
LOC: WOU 08:12
PROVIDERS: ATTEND Podiatrist Foot & Ankle Surgery
DX: I87.312 Chronic venous hypertension (idiopathic) with ulcer of left lower extremity (principal); L97.822 Non-pressure chronic ulcer of other part of left lower leg with fat layer exposed; I73.9 Peripheral vascular disease, unspecified; M79.605 Pain in left leg; M20.42 Other hammer toe(s) (acquired), left foot; M20.41 Other hammer toe(s) (acquired), right foot; I89.0 Lymphedema, not elsewhere classified; B35.1 Tinea unguium; Z79.82 Long term (current) use of aspirin; Z79.899 Other long term (current) drug therapy
CPT/HCPCS: 11042; 11045; J7040

== ENCOUNTER 2021-05-17 08:13 | Outpatient (CLI) | payer MEDICARE, OTHER ==
[2021-05-17] MEDS ORDERED: LIDOCAINE SOLN 4% 50 ML BOTTLE ONE (08:25)
[2021-05-17] MEDS ORDERED: MUPIROCIN 2% CREAM 15 GM TUBE TP ONE (09:02)
[2021-05-17] MEDS ORDERED: GENTAMICIN 0.1% CREAM 15 GM TUBE ONE (09:03)
== END 2021-05-17 23:59 | disposition home health service (06) ==
LOC: WOU 08:13
PROVIDERS: ATTEND Podiatrist Foot & Ankle Surgery
DX: I87.312 Chronic venous hypertension (idiopathic) with ulcer of left lower extremity (principal); L97.822 Non-pressure chronic ulcer of other part of left lower leg with fat layer exposed; I73.9 Peripheral vascular disease, unspecified; I89.0 Lymphedema, not elsewhere classified; M20.42 Other hammer toe(s) (acquired), left foot; M20.41 Other hammer toe(s) (acquired), right foot; M21.42 Flat foot [pes planus] (acquired), left foot; M79.605 Pain in left leg; Z79.82 Long term (current) use of aspirin; Z79.899 Other long term (current) drug therapy; I10 Essential (primary) hypertension
CPT/HCPCS: 11042; 11045; A6253 ×2; J7040

== ENCOUNTER 2021-05-24 08:00 | Outpatient (CLI) | payer MEDICARE, OTHER | END 2021-05-24 23:59 | disposition home health service (06) | LOC: WOU 08:00 | PROVIDERS: ATTEND Podiatrist Foot & Ankle Surgery | DX: I87.312 Chronic venous hypertension (idiopathic) with ulcer of left lower extremity (principal); L97.822 Non-pressure chronic ulcer of other part of left lower leg with fat layer exposed; I73.9 Peripheral vascular disease, unspecified; I89.0 Lymphedema, not elsewhere classified; M20.42 Other hammer toe(s) (acquired), left foot; M20.41 Other hammer toe(s) (acquired), right foot; M21.42 Flat foot [pes planus] (acquired), left foot; M79.605 Pain in left leg; Z79.82 Long term (current) use of aspirin; Z79.899 Other long term (current) drug therapy | CPT/HCPCS: 11042; 11045; A6253; J7040 ==

== ENCOUNTER 2021-05-24 08:56 | Outpatient (CLI) | payer MEDICARE, OTHER | END 2021-05-24 23:59 | disposition home or self-care (01) | LOC: MSC 08:56 | PROVIDERS: ATTEND Internal Medicine | DX: R13.10 Dysphagia, unspecified (principal); G62.9 Polyneuropathy, unspecified; S81.801D Unspecified open wound, right lower leg, subsequent encounter; Z86.73 Personal history of transient ischemic attack (TIA), and cerebral infarction without residual deficits; M85.80 Other specified disorders of bone density and structure, unspecified site; D64.9 Anemia, unspecified; I10 Essential (primary) hypertension; E78.5 Hyperlipidemia, unspecified; E03.9 Hypothyroidism, unspecified; Z79.890 Hormone replacement therapy; I87.2 Venous insufficiency (chronic) (peripheral); M54.9 Dorsalgia, unspecified; M19.90 Unspecified osteoarthritis, unspecified site; Z86.79 Personal history of other diseases of the circulatory system; Z79.899 Other long term (current) drug therapy ==

== ENCOUNTER 2021-05-27 08:10 | Outpatient (CLI) | payer MEDICARE, OTHER ==
[2021-05-27] MEDS ORDERED: LIDOCAINE SOLN 4% 50 ML BOTTLE ONE (08:19)
[2021-05-27] MEDS ORDERED: MUPIROCIN 2% CREAM 15 GM TUBE TP ONE (08:20)
[2021-05-27] MEDS ORDERED: GENTAMICIN 0.1% CREAM 15 GM TUBE ONE (08:20)
[2021-05-27] MEDS ORDERED: CLOTRIMAZOLE 1% 15 GM TUBE TP ONE (08:20)
== END 2021-05-27 23:59 | disposition home health service (06) ==
LOC: WOU 08:10
PROVIDERS: ATTEND Podiatrist Foot & Ankle Surgery
DX: I87.312 Chronic venous hypertension (idiopathic) with ulcer of left lower extremity (principal); L97.822 Non-pressure chronic ulcer of other part of left lower leg with fat layer exposed; I73.9 Peripheral vascular disease, unspecified; M20.42 Other hammer toe(s) (acquired), left foot; M20.41 Other hammer toe(s) (acquired), right foot; M21.42 Flat foot [pes planus] (acquired), left foot; M79.605 Pain in left leg; I89.0 Lymphedema, not elsewhere classified; Z79.899 Other long term (current) drug therapy; Z79.82 Long term (current) use of aspirin
CPT/HCPCS: 11042; 11045; A6253; J7040

== ENCOUNTER 2021-05-31 08:20 | Outpatient (CLI) | payer MEDICARE, OTHER ==
[2021-05-31] MEDS ORDERED: GENTAMICIN 0.1% CREAM 15 GM TUBE ONE (08:54)
[2021-05-31] MEDS ORDERED: MUPIROCIN 2% CREAM 15 GM TUBE TP ONE (08:54)
== END 2021-05-31 23:59 | disposition home health service (06) ==
LOC: WOU 08:20
PROVIDERS: ATTEND Podiatrist Foot & Ankle Surgery
DX: I87.312 Chronic venous hypertension (idiopathic) with ulcer of left lower extremity (principal); L97.822 Non-pressure chronic ulcer of other part of left lower leg with fat layer exposed; I73.9 Peripheral vascular disease, unspecified; I89.0 Lymphedema, not elsewhere classified; M21.42 Flat foot [pes planus] (acquired), left foot; M20.42 Other hammer toe(s) (acquired), left foot; M20.41 Other hammer toe(s) (acquired), right foot; M79.605 Pain in left leg; I10 Essential (primary) hypertension; Z79.82 Long term (current) use of aspirin; Z79.899 Other long term (current) drug therapy
CPT/HCPCS: 11042; 11045; A6253; J7040

== ENCOUNTER 2021-06-03 08:20 | Outpatient (CLI) | payer MEDICARE, OTHER ==
[2021-06-03] MEDS ORDERED: LIDOCAINE SOLN 4% 50 ML BOTTLE ONE (08:27)
[2021-06-03] MEDS ORDERED: GENTAMICIN 0.1% CREAM 15 GM TUBE ONE (08:42)
[2021-06-03] MEDS ORDERED: MUPIROCIN 2% CREAM 15 GM TUBE TP ONE (08:42)
[2021-06-03] MEDS ORDERED: CLOTRIMAZOLE 1% 15 GM TUBE TP ONE (08:43)
[2021-06-03] MEDS ORDERED: HYDROCORTISONE 1% CREAM 28.35 GM TUBE TP ONE (09:06)
== END 2021-06-03 23:59 | disposition home health service (06) ==
LOC: WOU 08:20
PROVIDERS: ATTEND Podiatrist Foot & Ankle Surgery
DX: I87.312 Chronic venous hypertension (idiopathic) with ulcer of left lower extremity (principal); L97.822 Non-pressure chronic ulcer of other part of left lower leg with fat layer exposed; I73.9 Peripheral vascular disease, unspecified; M79.605 Pain in left leg; M21.42 Flat foot [pes planus] (acquired), left foot; M20.42 Other hammer toe(s) (acquired), left foot; M20.41 Other hammer toe(s) (acquired), right foot; I89.0 Lymphedema, not elsewhere classified; Z79.82 Long term (current) use of aspirin; Z79.899 Other long term (current) drug therapy
CPT/HCPCS: 11042; 11045; A6253; J7040

== ENCOUNTER 2021-06-03 09:38 | Outpatient (CLI) | payer MEDICARE, OTHER ==
[2021-06-03 11:26] LABS: BASOPHILS % (AUTO) 0.2 % (0.0-2.0); EOSINOPHILS % (AUTO) 1.4 % (0.0-6.0); HEMATOCRIT 30 % (33-45); HEMOGLOBIN 9.8 g/dL (11.5-14.8); LYMPHOCYTES # (AUTO) 0.7 K/uL (0.8-4.8); LYMPHOCYTES % (AUTO) 10.1 % (20.0-44.0); MEAN CORPUSCULAR HGB CONC 32 g/dl (31.0-36.0); MEAN CORPUSCULAR VOLUME 87 fL (82-100); MONOCYTES # (AUTO) 0.4 K/uL (0.1-1.30); MONOCYTES % (AUTO) 6.3 % (2.0-12.0); NEUTROPHILS # (AUTO) 5.7 K/uL (1.8-8.9); PLATELET COUNT (AUTO) 233 K/uL (150-450); WHITE BLOOD COUNT (AUTO) 6.9 K/uL (4.3-11.0)
[2021-06-03 11:51] LABS: CALCIUM, SERUM 8.2 mg/dL (8.5-10.1); CREATININE 0.7 mg/dL (0.6-1.3); POTASSIUM 3.7 mmol/L (3.5-5.1)
== END 2021-06-03 23:59 | disposition home or self-care (01) ==
LOC: LAB 09:38
PROVIDERS: ATTEND Internal Medicine
DX: Z01.818 Encounter for other preprocedural examination (principal); Z79.01 Long term (current) use of anticoagulants
CPT/HCPCS: 36415; 80048-TC; 85025-TC; 85730-TC; 87070-TC; 87075-TC; 87186-TC

== ENCOUNTER 2021-06-07 08:30 | Outpatient (CLI) | payer MEDICARE, OTHER ==
[2021-06-07] MEDS ORDERED: LIDOCAINE SOLN 4% 50 ML BOTTLE ONE ×2 (08:40→09:07)
== END 2021-06-07 23:59 | disposition home health service (06) ==
LOC: WOU 08:30
PROVIDERS: ATTEND Podiatrist Foot & Ankle Surgery
DX: I87.312 Chronic venous hypertension (idiopathic) with ulcer of left lower extremity (principal); L97.822 Non-pressure chronic ulcer of other part of left lower leg with fat layer exposed; I73.9 Peripheral vascular disease, unspecified; I89.0 Lymphedema, not elsewhere classified; M20.42 Other hammer toe(s) (acquired), left foot; M20.41 Other hammer toe(s) (acquired), right foot; M21.42 Flat foot [pes planus] (acquired), left foot; I10 Essential (primary) hypertension; Z79.82 Long term (current) use of aspirin; Z79.899 Other long term (current) drug therapy
CPT/HCPCS: 11042; 11045; A6253; J7040; 11043

== ENCOUNTER 2021-06-07 09:51 | Outpatient (CLI) | payer MEDICARE, OTHER | END 2021-06-07 23:59 | disposition home or self-care (01) | LOC: MSC 09:51 | PROVIDERS: ATTEND Internal Medicine | DX: Z01.818 Encounter for other preprocedural examination (principal); R13.10 Dysphagia, unspecified; S81.801D Unspecified open wound, right lower leg, subsequent encounter; G62.9 Polyneuropathy, unspecified; Z86.73 Personal history of transient ischemic attack (TIA), and cerebral infarction without residual deficits; M85.80 Other specified disorders of bone density and structure, unspecified site; D64.9 Anemia, unspecified; I10 Essential (primary) hypertension; E78.5 Hyperlipidemia, unspecified; E03.9 Hypothyroidism, unspecified; Z79.890 Hormone replacement therapy; I87.2 Venous insufficiency (chronic) (peripheral); M19.90 Unspecified osteoarthritis, unspecified site; M54.9 Dorsalgia, unspecified; Z87.39 Personal history of other diseases of the musculoskeletal system and connective tissue; Z79.899 Other long term (current) drug therapy ==

== ENCOUNTER 2021-06-10 08:20 | Outpatient (CLI) | payer MEDICARE, OTHER ==
[2021-06-10] MEDS ORDERED: GENTAMICIN 0.1% CREAM 15 GM TUBE ONE ×2 (09:07→09:13)
[2021-06-10] MEDS ORDERED: CLOTRIMAZOLE 1% 15 GM TUBE TP ONE ×2 (09:08→09:14)
[2021-06-10] MEDS ORDERED: MUPIROCIN 2% CREAM 15 GM TUBE TP ONE ×2 (09:08→09:13)
[2021-06-10] MEDS ORDERED: HYDROCORTISONE 1% CREAM 28.35 GM TUBE TP ONE (09:09)
[2021-06-10] MEDS ORDERED: TRIAMCINOLONE ACETONIDE 0.1% CR 15 GM TUBE TP ONE (09:14)
== END 2021-06-10 23:59 | disposition home health service (06) ==
LOC: WOU 08:20
PROVIDERS: ATTEND Podiatrist Foot & Ankle Surgery
DX: I87.312 Chronic venous hypertension (idiopathic) with ulcer of left lower extremity (principal); L97.822 Non-pressure chronic ulcer of other part of left lower leg with fat layer exposed; I73.9 Peripheral vascular disease, unspecified; M20.42 Other hammer toe(s) (acquired), left foot; M20.41 Other hammer toe(s) (acquired), right foot; M21.42 Flat foot [pes planus] (acquired), left foot; I89.0 Lymphedema, not elsewhere classified; M79.605 Pain in left leg; Z79.82 Long term (current) use of aspirin; Z79.899 Other long term (current) drug therapy
CPT/HCPCS: 11042; 11045; A6253; J7040

== ENCOUNTER 2021-06-14 08:30 | Outpatient (CLI) | payer MEDICARE, OTHER ==
[2021-06-14] MEDS ORDERED: LIDOCAINE SOLN 4% 50 ML BOTTLE ONE (08:58)
[2021-06-14] MEDS ORDERED: GENTAMICIN 0.1% CREAM 15 GM TUBE ONE (09:20)
[2021-06-14] MEDS ORDERED: MUPIROCIN 2% CREAM 15 GM TUBE TP ONE (09:20)
[2021-06-14] MEDS ORDERED: HYDROCORTISONE 1% CREAM 28.35 GM TUBE TP ONE (09:20)
[2021-06-14] MEDS ORDERED: CLOTRIMAZOLE 1% 15 GM TUBE TP ONE (09:21)
== END 2021-06-14 23:59 | disposition home health service (06) ==
LOC: WOU 08:30
PROVIDERS: ATTEND Podiatrist Foot & Ankle Surgery
DX: I87.312 Chronic venous hypertension (idiopathic) with ulcer of left lower extremity (principal); L97.812 Non-pressure chronic ulcer of other part of right lower leg with fat layer exposed; I73.9 Peripheral vascular disease, unspecified; I89.0 Lymphedema, not elsewhere classified; M79.605 Pain in left leg; M21.42 Flat foot [pes planus] (acquired), left foot; M20.42 Other hammer toe(s) (acquired), left foot; M20.41 Other hammer toe(s) (acquired), right foot; I10 Essential (primary) hypertension; Z79.82 Long term (current) use of aspirin; Z79.899 Other long term (current) drug therapy
CPT/HCPCS: 11042; 11045; A6253; J7040

== ENCOUNTER 2021-06-28 08:15 | Outpatient (CLI) | payer MEDICARE, OTHER ==
[2021-06-28] MEDS ORDERED: LIDOCAINE SOLN 4% 50 ML BOTTLE ONE (08:17)
[2021-06-28] MEDS ORDERED: MUPIROCIN 2% CREAM 15 GM TUBE TP ONE (08:18)
[2021-06-28] MEDS ORDERED: GENTAMICIN 0.1% CREAM 15 GM TUBE ONE (08:18)
[2021-06-28] MEDS ORDERED: HYDROCORTISONE 1% CREAM 28.35 GM TUBE TP ONE (08:18)
[2021-06-28] MEDS ORDERED: CLOTRIMAZOLE 1% 15 GM TUBE TP ONE (08:19)
== END 2021-06-28 23:59 | disposition home health service (06) ==
LOC: WOU 08:15
PROVIDERS: ATTEND Podiatrist Foot & Ankle Surgery
DX: I87.312 Chronic venous hypertension (idiopathic) with ulcer of left lower extremity (principal); L97.822 Non-pressure chronic ulcer of other part of left lower leg with fat layer exposed; I89.0 Lymphedema, not elsewhere classified; I73.9 Peripheral vascular disease, unspecified; B35.1 Tinea unguium; L60.2 Onychogryphosis; I87.2 Venous insufficiency (chronic) (peripheral); M20.42 Other hammer toe(s) (acquired), left foot; M20.41 Other hammer toe(s) (acquired), right foot; M21.42 Flat foot [pes planus] (acquired), left foot; M79.675 Pain in left toe(s); M79.605 Pain in left leg; Z74.09 Other reduced mobility; Z79.82 Long term (current) use of aspirin; Z79.899 Other long term (current) drug therapy
CPT/HCPCS: 11042; 11045; A6253; J7040

== ENCOUNTER 2021-07-08 08:15 | Outpatient (CLI) | payer MEDICARE, OTHER ==
[2021-07-08] MEDS ORDERED: LIDOCAINE SOLN 4% 50 ML BOTTLE ONE (09:16)
[2021-07-08] MEDS ORDERED: HYDROCORTISONE 1% CREAM 28.35 GM TUBE TP ONE (09:17)
[2021-07-08] MEDS ORDERED: CLOTRIMAZOLE 1% 15 GM TUBE TP ONE (09:20)
[2021-07-08] MEDS ORDERED: GENTAMICIN 0.1% CREAM 15 GM TUBE ONE (09:20)
[2021-07-08] MEDS ORDERED: MUPIROCIN 2% CREAM 15 GM TUBE TP ONE (09:21)
== END 2021-07-08 23:59 | disposition home health service (06) ==
LOC: WOU 08:15
PROVIDERS: ATTEND Podiatrist Foot & Ankle Surgery
DX: I87.312 Chronic venous hypertension (idiopathic) with ulcer of left lower extremity (principal); L97.822 Non-pressure chronic ulcer of other part of left lower leg with fat layer exposed; I73.9 Peripheral vascular disease, unspecified; I89.0 Lymphedema, not elsewhere classified; B35.1 Tinea unguium; M20.42 Other hammer toe(s) (acquired), left foot; M20.41 Other hammer toe(s) (acquired), right foot; M21.42 Flat foot [pes planus] (acquired), left foot; M79.605 Pain in left leg; M79.675 Pain in left toe(s); Z79.82 Long term (current) use of aspirin; Z79.899 Other long term (current) drug therapy
CPT/HCPCS: 11042; 11045; A6253; J7040

== ENCOUNTER 2021-07-12 08:15 | Outpatient (CLI) | payer MEDICARE, OTHER ==
[2021-07-12] MEDS ORDERED: HYDROCORTISONE 1% CREAM 28.35 GM TUBE TP ONE (08:51)
[2021-07-12] MEDS ORDERED: MUPIROCIN 2% CREAM 15 GM TUBE TP ONE (08:51)
[2021-07-12] MEDS ORDERED: GENTAMICIN 0.1% CREAM 15 GM TUBE ONE (08:51)
[2021-07-12] MEDS ORDERED: CLOTRIMAZOLE 1% 15 GM TUBE TP ONE (08:52)
== END 2021-07-12 23:59 | disposition home health service (06) ==
LOC: WOU 08:15
PROVIDERS: ATTEND Podiatrist Foot & Ankle Surgery
DX: I87.312 Chronic venous hypertension (idiopathic) with ulcer of left lower extremity (principal); L97.822 Non-pressure chronic ulcer of other part of left lower leg with fat layer exposed; I73.9 Peripheral vascular disease, unspecified; M20.42 Other hammer toe(s) (acquired), left foot; M20.41 Other hammer toe(s) (acquired), right foot; M21.42 Flat foot [pes planus] (acquired), left foot; I89.0 Lymphedema, not elsewhere classified; M79.605 Pain in left leg; B35.1 Tinea unguium; Z74.09 Other reduced mobility; Z79.82 Long term (current) use of aspirin; Z79.899 Other long term (current) drug therapy
CPT/HCPCS: 11042; 11045; A6253; J7040

== ENCOUNTER 2021-07-12 09:49 | Outpatient (CLI) | payer MEDICARE, OTHER ==
[2021-07-12 12:12] LABS: BASOPHILS % (AUTO) 0.2 % (0.0-2.0); EOSINOPHILS % (AUTO) 1.3 % (0.0-6.0); HEMATOCRIT 32 % (33-45); HEMOGLOBIN 10.7 g/dL (11.5-14.8); LYMPHOCYTES # (AUTO) 0.9 K/uL (0.8-4.8); MEAN CORPUSCULAR HGB CONC 33 g/dl (31.0-36.0); MEAN CORPUSCULAR VOLUME 87 fL (82-100); MONOCYTES # (AUTO) 0.3 K/uL (0.1-1.30); NEUTROPHILS # (AUTO) 5.4 K/uL (1.8-8.9); NEUTROPHILS % (AUTO) 79.5 % (43.0-81.0); PLATELET COUNT (AUTO) 216 K/uL (150-450); RED BLOOD CELL COUNT(AUTO) 3.72 MIL/uL (4.0-5.2); WHITE BLOOD COUNT (AUTO) 6.7 K/uL (4.3-11.0)
[2021-07-12 12:23] LABS: CALCIUM, SERUM 8.9 mg/dL (8.5-10.1); CREATININE 0.8 mg/dL (0.6-1.3); POTASSIUM 3.6 mmol/L (3.5-5.1)
== END 2021-07-12 23:59 | disposition home or self-care (01) ==
LOC: LAB 09:49
PROVIDERS: ATTEND Internal Medicine
DX: Z01.812 Encounter for preprocedural laboratory examination (principal); I10 Essential (primary) hypertension
CPT/HCPCS: 36415; 80048-TC; 85025-TC; 85610-TC; 85730-TC

== ENCOUNTER 2021-07-15 08:15 | Outpatient (CLI) | payer MEDICARE, OTHER ==
[2021-07-15] MEDS ORDERED: HYDROCORTISONE 1% CREAM 28.35 GM TUBE TP ONE (09:04)
[2021-07-15] MEDS ORDERED: MUPIROCIN 2% CREAM 15 GM TUBE TP ONE (09:05)
[2021-07-15] MEDS ORDERED: GENTAMICIN 0.1% CREAM 15 GM TUBE ONE (09:05)
[2021-07-15] MEDS ORDERED: CLOTRIMAZOLE 1% 15 GM TUBE TP ONE (09:06)
== END 2021-07-15 23:59 | disposition home health service (06) ==
LOC: WOU 08:15
PROVIDERS: ATTEND Podiatrist Foot & Ankle Surgery
DX: I87.312 Chronic venous hypertension (idiopathic) with ulcer of left lower extremity (principal); L97.222 Non-pressure chronic ulcer of left calf with fat layer exposed; I73.9 Peripheral vascular disease, unspecified; M20.42 Other hammer toe(s) (acquired), left foot; M20.41 Other hammer toe(s) (acquired), right foot; M21.42 Flat foot [pes planus] (acquired), left foot; I89.0 Lymphedema, not elsewhere classified; B35.1 Tinea unguium; M79.675 Pain in left toe(s); M79.605 Pain in left leg; Z74.09 Other reduced mobility; Z79.82 Long term (current) use of aspirin; Z79.899 Other long term (current) drug therapy
CPT/HCPCS: 11042; 11045; A6253; J7040

== ENCOUNTER 2021-07-19 08:25 | Outpatient (CLI) | payer MEDICARE, OTHER ==
[~2021-07-19 08:25] MED LIST changes: +CLOTRIMAZOLE 1% 15 GM TUBE TP ONE; +LIDOCAINE SOLN 4% 50 ML BOTTLE ONE; +MUPIROCIN 2% CREAM 15 GM TUBE TP ONE
[2021-07-19] MEDS ORDERED: GENTAMICIN 0.1% CREAM 15 GM TUBE ONE (09:48)
== END 2021-07-19 23:59 | disposition home health service (06) ==
LOC: WOU 08:25
PROVIDERS: ATTEND Podiatrist Foot & Ankle Surgery
DX: I87.312 Chronic venous hypertension (idiopathic) with ulcer of left lower extremity (principal); L97.822 Non-pressure chronic ulcer of other part of left lower leg with fat layer exposed; I73.9 Peripheral vascular disease, unspecified; M20.42 Other hammer toe(s) (acquired), left foot; M20.41 Other hammer toe(s) (acquired), right foot; M21.42 Flat foot [pes planus] (acquired), left foot; I89.0 Lymphedema, not elsewhere classified; M79.605 Pain in left leg; M79.675 Pain in left toe(s); Z74.09 Other reduced mobility; Z79.82 Long term (current) use of aspirin; Z79.899 Other long term (current) drug therapy
CPT/HCPCS: 11042; 11045; A6253 ×2; J7040

== ENCOUNTER 2021-07-22 08:10 | Outpatient (CLI) | payer MEDICARE, OTHER ==
[~2021-07-22 08:10] MED LIST changes: -CLOTRIMAZOLE 1% 15 GM TUBE TP ONE; -LIDOCAINE SOLN 4% 50 ML BOTTLE ONE; -MUPIROCIN 2% CREAM 15 GM TUBE TP ONE
[2021-07-22] MEDS ORDERED: MUPIROCIN 2% CREAM 15 GM TUBE TP ONE (08:29)
[2021-07-22] MEDS ORDERED: GENTAMICIN 0.1% CREAM 15 GM TUBE ONE (08:30)
[2021-07-22] MEDS ORDERED: CLOTRIMAZOLE 1% 15 GM TUBE TP ONE (08:30)
[2021-07-22] MEDS ORDERED: LIDOCAINE SOLN 4% 50 ML BOTTLE ONE (08:30)
[2021-07-22] MEDS ORDERED: HYDROCORTISONE 1% CREAM 28.35 GM TUBE TP ONE (08:30)
== END 2021-07-22 23:59 | disposition home health service (06) ==
LOC: WOU 08:10
PROVIDERS: ATTEND Podiatrist Foot & Ankle Surgery
DX: I87.312 Chronic venous hypertension (idiopathic) with ulcer of left lower extremity (principal); L97.222 Non-pressure chronic ulcer of left calf with fat layer exposed; I73.9 Peripheral vascular disease, unspecified; I89.0 Lymphedema, not elsewhere classified; M21.42 Flat foot [pes planus] (acquired), left foot; M20.42 Other hammer toe(s) (acquired), left foot; M20.41 Other hammer toe(s) (acquired), right foot; M79.605 Pain in left leg; B35.1 Tinea unguium; Z74.09 Other reduced mobility; Z79.82 Long term (current) use of aspirin; Z79.899 Other long term (current) drug therapy
CPT/HCPCS: 11042; 11045; A6253; J7040

== ENCOUNTER 2021-07-26 08:10 | Outpatient (CLI) | payer MEDICARE, OTHER ==
[2021-07-26] MEDS ORDERED: LIDOCAINE SOLN 4% 50 ML BOTTLE ONE (08:21)
[2021-07-26] MEDS ORDERED: HYDROCORTISONE 1% CREAM 28.35 GM TUBE TP ONE (09:18)
[2021-07-26] MEDS ORDERED: MUPIROCIN 2% CREAM 15 GM TUBE TP ONE (09:19)
[2021-07-26] MEDS ORDERED: CLOTRIMAZOLE 1% 15 GM TUBE TP ONE (09:19)
[2021-07-26] MEDS ORDERED: GENTAMICIN 0.1% CREAM 15 GM TUBE ONE (09:19)
== END 2021-07-26 23:59 | disposition home health service (06) ==
LOC: WOU 08:10
PROVIDERS: ATTEND Podiatrist Foot & Ankle Surgery
DX: I87.312 Chronic venous hypertension (idiopathic) with ulcer of left lower extremity (principal); L97.222 Non-pressure chronic ulcer of left calf with fat layer exposed; I73.9 Peripheral vascular disease, unspecified; I89.0 Lymphedema, not elsewhere classified; B35.1 Tinea unguium; M21.42 Flat foot [pes planus] (acquired), left foot; M20.42 Other hammer toe(s) (acquired), left foot; M20.41 Other hammer toe(s) (acquired), right foot; M79.675 Pain in left toe(s); Z74.09 Other reduced mobility; Z79.82 Long term (current) use of aspirin; Z79.899 Other long term (current) drug therapy; M79.605 Pain in left leg
CPT/HCPCS: 11042; 11045; A6253; J7040

== ENCOUNTER 2021-07-29 08:15 | Outpatient (CLI) | payer MEDICARE, OTHER ==
[2021-07-29] MEDS ORDERED: LIDOCAINE SOLN 4% 50 ML BOTTLE ONE (08:24)
[2021-07-29] MEDS ORDERED: MUPIROCIN 2% CREAM 15 GM TUBE TP ONE (08:43)
[2021-07-29] MEDS ORDERED: GENTAMICIN 0.1% CREAM 15 GM TUBE ONE (08:43)
[2021-07-29] MEDS ORDERED: CLOTRIMAZOLE 1% 15 GM TUBE TP ONE (08:44)
== END 2021-07-29 23:59 | disposition home health service (06) ==
LOC: WOU 08:15
PROVIDERS: ATTEND Podiatrist Foot & Ankle Surgery
DX: I87.312 Chronic venous hypertension (idiopathic) with ulcer of left lower extremity (principal); L97.222 Non-pressure chronic ulcer of left calf with fat layer exposed; I87.2 Venous insufficiency (chronic) (peripheral); I73.9 Peripheral vascular disease, unspecified; R60.0 Localized edema; M20.42 Other hammer toe(s) (acquired), left foot; M20.41 Other hammer toe(s) (acquired), right foot; M21.42 Flat foot [pes planus] (acquired), left foot; I89.0 Lymphedema, not elsewhere classified; B35.1 Tinea unguium; Z79.82 Long term (current) use of aspirin; Z79.899 Other long term (current) drug therapy
CPT/HCPCS: 11042; 11045; A6253; J7040

== ENCOUNTER 2021-08-02 08:10 | Outpatient (CLI) | payer MEDICARE, OTHER ==
[2021-08-02] MEDS ORDERED: LIDOCAINE SOLN 4% 50 ML BOTTLE ONE (08:21)
[2021-08-02] MEDS ORDERED: DAKINS HALF STRENGTH (0.25%) 480 ML BOTTLE ONE (08:22)
[2021-08-02] MEDS ORDERED: GENTAMICIN 0.1% CREAM 15 GM TUBE ONE (08:55)
[2021-08-02] MEDS ORDERED: MUPIROCIN 2% CREAM 15 GM TUBE TP ONE (08:55)
[2021-08-02] MEDS ORDERED: CLOTRIMAZOLE 1% 15 GM TUBE TP ONE (08:56)
[2021-08-02] MEDS ORDERED: HYDROCORTISONE 1% CREAM 28.35 GM TUBE TP ONE (08:56)
== END 2021-08-02 23:59 | disposition home health service (06) ==
LOC: WOU 08:10
PROVIDERS: ATTEND Podiatrist Foot & Ankle Surgery
DX: I87.312 Chronic venous hypertension (idiopathic) with ulcer of left lower extremity (principal); L97.222 Non-pressure chronic ulcer of left calf with fat layer exposed; I73.9 Peripheral vascular disease, unspecified; I89.0 Lymphedema, not elsewhere classified; M20.42 Other hammer toe(s) (acquired), left foot; M20.41 Other hammer toe(s) (acquired), right foot; M21.42 Flat foot [pes planus] (acquired), left foot; B35.1 Tinea unguium; Z74.09 Other reduced mobility; M79.605 Pain in left leg; Z79.82 Long term (current) use of aspirin; Z79.899 Other long term (current) drug therapy
CPT/HCPCS: 11042; 11045; A6253; J7040

== ENCOUNTER 2021-08-05 08:45 | Outpatient (CLI) | payer MEDICARE, OTHER ==
[2021-08-05] MEDS ORDERED: CLOTRIMAZOLE 1% 15 GM TUBE TP ONE (09:05)
[2021-08-05] MEDS ORDERED: GENTAMICIN 0.1% CREAM 15 GM TUBE ONE (09:05)
[2021-08-05] MEDS ORDERED: MUPIROCIN 2% CREAM 15 GM TUBE TP ONE (09:05)
[2021-08-05] MEDS ORDERED: HYDROCORTISONE 1% CREAM 28.35 GM TUBE TP ONE (09:05)
== END 2021-08-05 23:59 | disposition home health service (06) ==
LOC: WOU 08:45
PROVIDERS: ATTEND Podiatrist Foot & Ankle Surgery
DX: I87.312 Chronic venous hypertension (idiopathic) with ulcer of left lower extremity (principal); L97.222 Non-pressure chronic ulcer of left calf with fat layer exposed; I73.9 Peripheral vascular disease, unspecified; I89.0 Lymphedema, not elsewhere classified; M20.42 Other hammer toe(s) (acquired), left foot; M20.41 Other hammer toe(s) (acquired), right foot; M21.42 Flat foot [pes planus] (acquired), left foot; B35.1 Tinea unguium; M79.605 Pain in left leg; Z79.82 Long term (current) use of aspirin; Z79.899 Other long term (current) drug therapy
CPT/HCPCS: 11042; 11045; A6253; J7040

== ENCOUNTER 2021-08-05 08:55 | Outpatient (CLI) | payer MEDICARE, OTHER ==
[2021-08-05 10:02] LABS: BASOPHILS % (AUTO) 0.2 % (0.0-2.0); EOSINOPHILS % (AUTO) 1.5 % (0.0-6.0); HEMATOCRIT 36 % (33-45); HEMOGLOBIN 11.5 g/dL (11.5-14.8); LYMPHOCYTES # (AUTO) 0.8 K/uL (0.8-4.8); LYMPHOCYTES % (AUTO) 12.2 % (20.0-44.0); MEAN CORPUSCULAR HGB CONC 32 g/dl (31.0-36.0); MEAN CORPUSCULAR VOLUME 89 fL (82-100); MONOCYTES # (AUTO) 0.3 K/uL (0.1-1.30); MONOCYTES % (AUTO) 5.1 % (2.0-12.0); NEUTROPHILS # (AUTO) 5.4 K/uL (1.8-8.9); PLATELET COUNT (AUTO) 234 K/uL (150-450); RED BLOOD CELL COUNT(AUTO) 4.04 MIL/uL (4.0-5.2); WHITE BLOOD COUNT (AUTO) 6.7 K/uL (4.3-11.0)
[2021-08-05 10:05] LABS: CALCIUM, SERUM 9.6 mg/dL (8.5-10.1); CREATININE 0.7 mg/dL (0.6-1.3); POTASSIUM 4.5 mmol/L (3.5-5.1)
== END 2021-08-05 23:59 | disposition home or self-care (01) ==
LOC: LAB 08:55
PROVIDERS: ATTEND Internal Medicine
DX: Z01.818 Encounter for other preprocedural examination (principal)
CPT/HCPCS: 36415; 80048-TC; 85025-TC; 85730-TC

== ENCOUNTER 2021-08-09 08:05 | Outpatient (CLI) | payer MEDICARE, OTHER ==
[2021-08-09] MEDS ORDERED: GENTAMICIN 0.1% CREAM 15 GM TUBE ONE (08:24)
[2021-08-09] MEDS ORDERED: MUPIROCIN 2% CREAM 15 GM TUBE TP ONE (08:24)
[2021-08-09] MEDS ORDERED: CLOTRIMAZOLE 1% 15 GM TUBE TP ONE (08:25)
[2021-08-09] MEDS ORDERED: HYDROCORTISONE 1% CREAM 28.35 GM TUBE TP ONE (08:25)
[2021-08-09] MEDS ORDERED: LIDOCAINE SOLN 4% 50 ML BOTTLE ONE (08:35)
== END 2021-08-09 23:59 | disposition home health service (06) ==
LOC: WOU 08:05
PROVIDERS: ATTEND Podiatrist Foot & Ankle Surgery
DX: I87.312 Chronic venous hypertension (idiopathic) with ulcer of left lower extremity (principal); L97.222 Non-pressure chronic ulcer of left calf with fat layer exposed; I73.9 Peripheral vascular disease, unspecified; I89.0 Lymphedema, not elsewhere classified; M21.42 Flat foot [pes planus] (acquired), left foot; M20.42 Other hammer toe(s) (acquired), left foot; M20.41 Other hammer toe(s) (acquired), right foot; B35.1 Tinea unguium; M79.675 Pain in left toe(s); I10 Essential (primary) hypertension; Z79.02 Long term (current) use of antithrombotics/antiplatelets; Z79.899 Other long term (current) drug therapy
CPT/HCPCS: 11042; 11045; A6253 ×2

== ENCOUNTER 2021-08-12 08:10 | Outpatient (CLI) | payer MEDICARE, OTHER ==
[2021-08-12] MEDS ORDERED: LIDOCAINE SOLN 4% 50 ML BOTTLE ONE (08:13)
[2021-08-12] MEDS ORDERED: MUPIROCIN 2% CREAM 15 GM TUBE TP ONE (08:14)
[2021-08-12] MEDS ORDERED: CLOTRIMAZOLE 1% 15 GM TUBE TP ONE (08:14)
[2021-08-12] MEDS ORDERED: GENTAMICIN 0.1% CREAM 15 GM TUBE ONE (08:14)
[2021-08-12] MEDS ORDERED: HYDROCORTISONE 1% CREAM 28.35 GM TUBE TP ONE (08:15)
== END 2021-08-12 23:59 | disposition home health service (06) ==
LOC: WOU 08:10
PROVIDERS: ATTEND Podiatrist Foot & Ankle Surgery
DX: I87.312 Chronic venous hypertension (idiopathic) with ulcer of left lower extremity (principal); L97.322 Non-pressure chronic ulcer of left ankle with fat layer exposed; L97.222 Non-pressure chronic ulcer of left calf with fat layer exposed; I73.9 Peripheral vascular disease, unspecified; M21.42 Flat foot [pes planus] (acquired), left foot; M20.42 Other hammer toe(s) (acquired), left foot; M20.41 Other hammer toe(s) (acquired), right foot; I89.0 Lymphedema, not elsewhere classified; M79.605 Pain in left leg; M79.675 Pain in left toe(s); B35.1 Tinea unguium; Z74.09 Other reduced mobility; Z79.82 Long term (current) use of aspirin; Z79.899 Other long term (current) drug therapy
CPT/HCPCS: 11042; 11045; A6253; J7040

== ENCOUNTER 2021-08-16 08:25 | Outpatient (CLI) | payer MEDICARE, OTHER ==
[2021-08-16] MEDS ORDERED: LIDOCAINE SOLN 4% 50 ML BOTTLE ONE (08:40)
[2021-08-16] MEDS ORDERED: MUPIROCIN 2% CREAM 15 GM TUBE TP ONE (09:32)
[2021-08-16] MEDS ORDERED: HYDROCORTISONE 1% CREAM 28.35 GM TUBE TP ONE (09:32)
[2021-08-16] MEDS ORDERED: CLOTRIMAZOLE 1% 15 GM TUBE TP ONE (09:32)
[2021-08-16] MEDS ORDERED: GENTAMICIN 0.1% CREAM 15 GM TUBE ONE (09:33)
== END 2021-08-16 23:59 | disposition home health service (06) ==
LOC: WOU 08:25
PROVIDERS: ATTEND Podiatrist Foot & Ankle Surgery
DX: I87.312 Chronic venous hypertension (idiopathic) with ulcer of left lower extremity (principal); L97.822 Non-pressure chronic ulcer of other part of left lower leg with fat layer exposed; I73.9 Peripheral vascular disease, unspecified; I89.0 Lymphedema, not elsewhere classified; M21.42 Flat foot [pes planus] (acquired), left foot; M20.42 Other hammer toe(s) (acquired), left foot; M20.41 Other hammer toe(s) (acquired), right foot; B35.1 Tinea unguium; M79.605 Pain in left leg; M79.675 Pain in left toe(s); Z79.82 Long term (current) use of aspirin; Z79.899 Other long term (current) drug therapy
CPT/HCPCS: 11042; 11045; 87070; 87075; A6253; J7040

== ENCOUNTER 2021-08-23 08:10 | Outpatient (CLI) | payer MEDICARE, OTHER ==
[2021-08-23] MEDS ORDERED: LIDOCAINE SOLN 4% 50 ML BOTTLE ONE ×2 (08:17→09:03)
[2021-08-23] MEDS ORDERED: GENTAMICIN 0.1% CREAM 15 GM TUBE ONE (08:22)
[2021-08-23] MEDS ORDERED: MUPIROCIN 2% CREAM 15 GM TUBE TP ONE (08:22)
[2021-08-23] MEDS ORDERED: CLOTRIMAZOLE 1% 15 GM TUBE TP ONE (08:23)
[2021-08-23] MEDS ORDERED: HYDROCORTISONE 1% CREAM 28.35 GM TUBE TP ONE (08:23)
== END 2021-08-23 23:59 | disposition home health service (06) ==
LOC: WOU 08:10
PROVIDERS: ATTEND Podiatrist Foot & Ankle Surgery
DX: I87.312 Chronic venous hypertension (idiopathic) with ulcer of left lower extremity (principal); L97.822 Non-pressure chronic ulcer of other part of left lower leg with fat layer exposed; I73.9 Peripheral vascular disease, unspecified; I89.0 Lymphedema, not elsewhere classified; M20.42 Other hammer toe(s) (acquired), left foot; M20.41 Other hammer toe(s) (acquired), right foot; M21.42 Flat foot [pes planus] (acquired), left foot; B35.1 Tinea unguium; Z74.09 Other reduced mobility; M79.675 Pain in left toe(s); M79.605 Pain in left leg; Z79.899 Other long term (current) drug therapy; Z79.82 Long term (current) use of aspirin
CPT/HCPCS: 11042; 11045; A6253; J7040

== ENCOUNTER → 2021-08-26 | Outpatient (CLI) | payer MEDICARE, OTHER ==
[~2021-08-26] MED LIST changes: +CLOTRIMAZOLE 1% 15 GM TUBE TP ONE; +GENTAMICIN 0.1% CREAM 15 GM TUBE ONE; +HYDROCORTISONE 1% CREAM 28.35 GM TUBE TP ONE; +LIDOCAINE SOLN 4% 50 ML BOTTLE ONE; +MUPIROCIN 2% CREAM 15 GM TUBE TP ONE
== END | disposition home health service (06) ==
LOC: WOU 08:05
PROVIDERS: ATTEND Podiatrist Foot & Ankle Surgery
DX: I87.312 Chronic venous hypertension (idiopathic) with ulcer of left lower extremity (principal); L97.222 Non-pressure chronic ulcer of left calf with fat layer exposed; I89.0 Lymphedema, not elsewhere classified; I73.9 Peripheral vascular disease, unspecified; M20.42 Other hammer toe(s) (acquired), left foot; M20.41 Other hammer toe(s) (acquired), right foot; M21.42 Flat foot [pes planus] (acquired), left foot; B35.1 Tinea unguium; Z74.09 Other reduced mobility; M79.605 Pain in left leg; M79.675 Pain in left toe(s); I10 Essential (primary) hypertension
CPT/HCPCS: 11042; 11045; A6253; J7040

== ENCOUNTER 2021-08-30 08:10 | Outpatient (CLI) | payer MEDICARE, OTHER ==
[~2021-08-30 08:10] MED LIST changes: -CLOTRIMAZOLE 1% 15 GM TUBE TP ONE; -GENTAMICIN 0.1% CREAM 15 GM TUBE ONE; -HYDROCORTISONE 1% CREAM 28.35 GM TUBE TP ONE; -LIDOCAINE SOLN 4% 50 ML BOTTLE ONE; -MUPIROCIN 2% CREAM 15 GM TUBE TP ONE
[2021-08-30] MEDS ORDERED: CLOTRIMAZOLE 1% 15 GM TUBE TP ONE (09:22)
[2021-08-30] MEDS ORDERED: HYDROCORTISONE 1% CREAM 28.35 GM TUBE TP ONE (09:23)
[2021-08-30] MEDS ORDERED: GENTAMICIN 0.1% CREAM 15 GM TUBE ONE (09:23)
[2021-08-30] MEDS ORDERED: MUPIROCIN 2% CREAM 15 GM TUBE TP ONE (09:23)
== END 2021-08-30 23:59 | disposition home health service (06) ==
LOC: WOU 08:10
PROVIDERS: ATTEND Podiatrist Foot & Ankle Surgery
DX: I87.312 Chronic venous hypertension (idiopathic) with ulcer of left lower extremity (principal); L97.222 Non-pressure chronic ulcer of left calf with fat layer exposed; I73.9 Peripheral vascular disease, unspecified; I89.0 Lymphedema, not elsewhere classified; M20.42 Other hammer toe(s) (acquired), left foot; M20.41 Other hammer toe(s) (acquired), right foot; M21.42 Flat foot [pes planus] (acquired), left foot; B35.1 Tinea unguium; I10 Essential (primary) hypertension; Z79.82 Long term (current) use of aspirin
CPT/HCPCS: 11042; 11045; A6253; J7040

== ENCOUNTER → 2021-09-02 | Outpatient (CLI) | payer MEDICARE, OTHER ==
[~2021-09-02] MED LIST changes: +CLOTRIMAZOLE 1% 15 GM TUBE TP ONE; +GENTAMICIN 0.1% CREAM 15 GM TUBE ONE; +HYDROCORTISONE 1% CREAM 28.35 GM TUBE TP ONE; +LIDOCAINE SOLN 4% 50 ML BOTTLE ONE; +MUPIROCIN 2% CREAM 15 GM TUBE TP ONE
== END | disposition home health service (06) ==
LOC: WOU 08:10
PROVIDERS: ATTEND Podiatrist Foot & Ankle Surgery
DX: I87.312 Chronic venous hypertension (idiopathic) with ulcer of left lower extremity (principal); L97.222 Non-pressure chronic ulcer of left calf with fat layer exposed; I73.9 Peripheral vascular disease, unspecified; M20.42 Other hammer toe(s) (acquired), left foot; M20.41 Other hammer toe(s) (acquired), right foot; M21.42 Flat foot [pes planus] (acquired), left foot; I89.0 Lymphedema, not elsewhere classified; B35.1 Tinea unguium; Z74.09 Other reduced mobility; M79.675 Pain in left toe(s); M79.605 Pain in left leg; Z79.899 Other long term (current) drug therapy; Z79.82 Long term (current) use of aspirin
CPT/HCPCS: 11042; 11045; A6253; J7040

== ENCOUNTER 2021-09-06 08:00 | Outpatient (CLI) | payer MEDICARE, OTHER ==
[~2021-09-06 08:00] MED LIST changes: -CLOTRIMAZOLE 1% 15 GM TUBE TP ONE; -GENTAMICIN 0.1% CREAM 15 GM TUBE ONE; -HYDROCORTISONE 1% CREAM 28.35 GM TUBE TP ONE; -LIDOCAINE SOLN 4% 50 ML BOTTLE ONE; -MUPIROCIN 2% CREAM 15 GM TUBE TP ONE
[2021-09-06] MEDS ORDERED: LIDOCAINE SOLN 4% 50 ML BOTTLE ONE ×2 (08:10→09:21)
[2021-09-06] MEDS ORDERED: MUPIROCIN 2% CREAM 15 GM TUBE TP ONE (09:28)
[2021-09-06] MEDS ORDERED: GENTAMICIN 0.1% CREAM 15 GM TUBE ONE (09:28)
[2021-09-06] MEDS ORDERED: HYDROCORTISONE 1% CREAM 28.35 GM TUBE TP ONE (09:28)
[2021-09-06] MEDS ORDERED: CLOTRIMAZOLE 1% 15 GM TUBE TP ONE (09:29)
== END 2021-09-06 23:59 | disposition home health service (06) ==
LOC: WOU 08:00
PROVIDERS: ATTEND Podiatrist Foot & Ankle Surgery
DX: I87.312 Chronic venous hypertension (idiopathic) with ulcer of left lower extremity (principal); L97.222 Non-pressure chronic ulcer of left calf with fat layer exposed; I73.9 Peripheral vascular disease, unspecified; I89.0 Lymphedema, not elsewhere classified; M79.605 Pain in left leg; M20.41 Other hammer toe(s) (acquired), right foot; M21.42 Flat foot [pes planus] (acquired), left foot; B35.1 Tinea unguium; M20.42 Other hammer toe(s) (acquired), left foot; Z74.09 Other reduced mobility; Z79.899 Other long term (current) drug therapy; Z79.82 Long term (current) use of aspirin
CPT/HCPCS: 11042; 11045; A6253; J7040

== ENCOUNTER → 2021-09-09 | Outpatient (CLI) | payer MEDICARE, OTHER ==
[~2021-09-09] MED LIST changes: +CLOTRIMAZOLE 1% 15 GM TUBE TP ONE; +GENTAMICIN 0.1% CREAM 15 GM TUBE ONE; +HYDROCORTISONE 1% CREAM 28.35 GM TUBE TP ONE; +LIDOCAINE SOLN 4% 50 ML BOTTLE ONE; +MUPIROCIN 2% CREAM 15 GM TUBE TP ONE
== END | disposition home health service (06) ==
LOC: WOU 08:00
PROVIDERS: ATTEND Podiatrist Foot & Ankle Surgery
DX: I87.312 Chronic venous hypertension (idiopathic) with ulcer of left lower extremity (principal); L97.222 Non-pressure chronic ulcer of left calf with fat layer exposed; I73.9 Peripheral vascular disease, unspecified; M20.42 Other hammer toe(s) (acquired), left foot; M20.41 Other hammer toe(s) (acquired), right foot; M21.42 Flat foot [pes planus] (acquired), left foot; I89.0 Lymphedema, not elsewhere classified; B35.1 Tinea unguium; M79.605 Pain in left leg; Z74.09 Other reduced mobility; Z79.82 Long term (current) use of aspirin; Z79.899 Other long term (current) drug therapy
CPT/HCPCS: 11042; 11045; 73630; A6253; J7040

== ENCOUNTER 2021-09-13 08:15 | Outpatient (CLI) | payer MEDICARE, OTHER ==
[~2021-09-13 08:15] MED LIST changes: -CLOTRIMAZOLE 1% 15 GM TUBE TP ONE; -GENTAMICIN 0.1% CREAM 15 GM TUBE ONE; -HYDROCORTISONE 1% CREAM 28.35 GM TUBE TP ONE; -LIDOCAINE SOLN 4% 50 ML BOTTLE ONE; -MUPIROCIN 2% CREAM 15 GM TUBE TP ONE
[2021-09-13] MEDS ORDERED: LIDOCAINE SOLN 4% 50 ML BOTTLE ONE (08:30)
[2021-09-13] MEDS ORDERED: HYDROCORTISONE 1% CREAM 28.35 GM TUBE TP ONE (08:54)
[2021-09-13] MEDS ORDERED: GENTAMICIN 0.1% CREAM 15 GM TUBE ONE (08:54)
[2021-09-13] MEDS ORDERED: MUPIROCIN 2% CREAM 15 GM TUBE TP ONE (08:54)
[2021-09-13] MEDS ORDERED: CLOTRIMAZOLE 1% 15 GM TUBE TP ONE (08:55)
== END 2021-09-13 23:59 | disposition home health service (06) ==
LOC: WOU 08:15
PROVIDERS: ATTEND Podiatrist Foot & Ankle Surgery
DX: I87.312 Chronic venous hypertension (idiopathic) with ulcer of left lower extremity (principal); L97.822 Non-pressure chronic ulcer of other part of left lower leg with fat layer exposed; I73.9 Peripheral vascular disease, unspecified; M21.42 Flat foot [pes planus] (acquired), left foot; M20.42 Other hammer toe(s) (acquired), left foot; M20.41 Other hammer toe(s) (acquired), right foot; I89.0 Lymphedema, not elsewhere classified; B35.1 Tinea unguium; M79.675 Pain in left toe(s); Z79.82 Long term (current) use of aspirin; Z79.899 Other long term (current) drug therapy
CPT/HCPCS: 11042; 11045; A6253

== ENCOUNTER 2021-09-16 08:05 | Outpatient (CLI) | payer MEDICARE, OTHER ==
[2021-09-16] MEDS ORDERED: MUPIROCIN 2% CREAM 15 GM TUBE TP ONE (08:38)
[2021-09-16] MEDS ORDERED: HYDROCORTISONE 1% CREAM 28.35 GM TUBE TP ONE (08:39)
[2021-09-16] MEDS ORDERED: CLOTRIMAZOLE 1% 15 GM TUBE TP ONE (08:39)
[2021-09-16] MEDS ORDERED: GENTAMICIN 0.1% CREAM 15 GM TUBE ONE (08:57)
== END 2021-09-16 23:59 | disposition home health service (06) ==
LOC: WOU 08:05
PROVIDERS: ATTEND Podiatrist Foot & Ankle Surgery
DX: I87.312 Chronic venous hypertension (idiopathic) with ulcer of left lower extremity (principal); L97.222 Non-pressure chronic ulcer of left calf with fat layer exposed; I73.9 Peripheral vascular disease, unspecified; I89.0 Lymphedema, not elsewhere classified; M20.42 Other hammer toe(s) (acquired), left foot; M20.41 Other hammer toe(s) (acquired), right foot; M21.42 Flat foot [pes planus] (acquired), left foot; B35.1 Tinea unguium; M79.675 Pain in left toe(s); Z74.09 Other reduced mobility; Z79.82 Long term (current) use of aspirin; Z79.899 Other long term (current) drug therapy
CPT/HCPCS: 11042; 11045; A6253; J7040

== ENCOUNTER 2021-09-20 08:05 | Outpatient (CLI) | payer MEDICARE, OTHER ==
[2021-09-20] MEDS ORDERED: LIDOCAINE SOLN 4% 50 ML BOTTLE ONE ×2 (08:21→08:29)
[2021-09-20] MEDS ORDERED: MUPIROCIN 2% CREAM 15 GM TUBE TP ONE (08:39)
[2021-09-20] MEDS ORDERED: CLOTRIMAZOLE 1% 15 GM TUBE TP ONE (08:40)
[2021-09-20] MEDS ORDERED: GENTAMICIN 0.1% CREAM 15 GM TUBE ONE (08:40)
[2021-09-20] MEDS ORDERED: HYDROCORTISONE 1% CREAM 28.35 GM TUBE TP ONE (08:40)
== END 2021-09-20 23:59 | disposition home health service (06) ==
LOC: WOU 08:05
PROVIDERS: ATTEND Podiatrist Foot & Ankle Surgery
DX: I87.312 Chronic venous hypertension (idiopathic) with ulcer of left lower extremity (principal); L97.822 Non-pressure chronic ulcer of other part of left lower leg with fat layer exposed; I73.9 Peripheral vascular disease, unspecified; M20.42 Other hammer toe(s) (acquired), left foot; M20.41 Other hammer toe(s) (acquired), right foot; M21.42 Flat foot [pes planus] (acquired), left foot; I89.0 Lymphedema, not elsewhere classified; B35.1 Tinea unguium; M79.605 Pain in left leg; Z74.09 Other reduced mobility; Z79.82 Long term (current) use of aspirin; Z79.899 Other long term (current) drug therapy
CPT/HCPCS: 11042; 11045; A6253; J7040

== ENCOUNTER 2021-09-23 08:05 | Outpatient (CLI) | payer MEDICARE, OTHER ==
[2021-09-23] MEDS ORDERED: LIDOCAINE SOLN 4% 50 ML BOTTLE ONE (08:16)
[2021-09-23] MEDS ORDERED: GENTAMICIN 0.1% CREAM 15 GM TUBE ONE (08:38)
[2021-09-23] MEDS ORDERED: HYDROCORTISONE 1% CREAM 28.35 GM TUBE TP ONE (08:38)
[2021-09-23] MEDS ORDERED: CLOTRIMAZOLE 1% 15 GM TUBE TP ONE (08:38)
[2021-09-23] MEDS ORDERED: MUPIROCIN 2% CREAM 15 GM TUBE TP ONE (08:38)
== END 2021-09-23 23:59 | disposition home health service (06) ==
LOC: WOU 08:05
PROVIDERS: ATTEND Podiatrist Foot & Ankle Surgery
DX: I87.312 Chronic venous hypertension (idiopathic) with ulcer of left lower extremity (principal); L97.222 Non-pressure chronic ulcer of left calf with fat layer exposed; I73.9 Peripheral vascular disease, unspecified; I89.0 Lymphedema, not elsewhere classified; M20.42 Other hammer toe(s) (acquired), left foot; M20.41 Other hammer toe(s) (acquired), right foot; M21.42 Flat foot [pes planus] (acquired), left foot; M79.605 Pain in left leg; B35.1 Tinea unguium; Z79.82 Long term (current) use of aspirin
CPT/HCPCS: 11042; 11045; A6253; J7040

== ENCOUNTER 2021-09-27 08:05 | Outpatient (CLI) | payer MEDICARE, OTHER ==
[2021-09-27] MEDS ORDERED: LIDOCAINE SOLN 4% 50 ML BOTTLE ONE (08:16)
[2021-09-27] MEDS ORDERED: CLOTRIMAZOLE 1% 15 GM TUBE TP ONE (08:35)
[2021-09-27] MEDS ORDERED: GENTAMICIN 0.1% CREAM 15 GM TUBE ONE (08:35)
[2021-09-27] MEDS ORDERED: HYDROCORTISONE 1% CREAM 28.35 GM TUBE TP ONE (08:35)
[2021-09-27] MEDS ORDERED: MUPIROCIN 2% CREAM 15 GM TUBE TP ONE (08:35)
== END 2021-09-27 23:59 | disposition home health service (06) ==
LOC: WOU 08:05
PROVIDERS: ATTEND Podiatrist Foot & Ankle Surgery
DX: I87.312 Chronic venous hypertension (idiopathic) with ulcer of left lower extremity (principal); L97.222 Non-pressure chronic ulcer of left calf with fat layer exposed; I73.9 Peripheral vascular disease, unspecified; M20.42 Other hammer toe(s) (acquired), left foot; M20.41 Other hammer toe(s) (acquired), right foot; M21.42 Flat foot [pes planus] (acquired), left foot; I89.0 Lymphedema, not elsewhere classified; B35.1 Tinea unguium; Z74.09 Other reduced mobility; M79.675 Pain in left toe(s); Z79.82 Long term (current) use of aspirin; Z79.899 Other long term (current) drug therapy
CPT/HCPCS: 11042; 11045; A6253; J7040

== ENCOUNTER → 2021-09-30 | Outpatient (CLI) | payer MEDICARE, OTHER ==
[~2021-09-30] MED LIST changes: +CLOTRIMAZOLE 1% 15 GM TUBE TP ONE; +GENTAMICIN 0.1% CREAM 15 GM TUBE ONE; +HYDROCORTISONE 1% CREAM 28.35 GM TUBE TP ONE; +LIDOCAINE SOLN 4% 50 ML BOTTLE ONE; +MUPIROCIN 2% CREAM 15 GM TUBE TP ONE
== END | disposition home health service (06) ==
LOC: WOU 08:00
PROVIDERS: ATTEND Podiatrist Foot & Ankle Surgery
DX: I87.312 Chronic venous hypertension (idiopathic) with ulcer of left lower extremity (principal); L97.222 Non-pressure chronic ulcer of left calf with fat layer exposed; I73.9 Peripheral vascular disease, unspecified; M20.42 Other hammer toe(s) (acquired), left foot; M20.41 Other hammer toe(s) (acquired), right foot; M21.42 Flat foot [pes planus] (acquired), left foot; I89.0 Lymphedema, not elsewhere classified; B35.1 Tinea unguium; M79.605 Pain in left leg; M79.675 Pain in left toe(s); Z79.82 Long term (current) use of aspirin; Z79.899 Other long term (current) drug therapy
CPT/HCPCS: 11042; 11045; A6253; J7040

== ENCOUNTER 2021-10-04 08:20 | Outpatient (CLI) | payer MEDICARE, OTHER ==
[~2021-10-04 08:20] MED LIST changes: -CLOTRIMAZOLE 1% 15 GM TUBE TP ONE; -GENTAMICIN 0.1% CREAM 15 GM TUBE ONE; -HYDROCORTISONE 1% CREAM 28.35 GM TUBE TP ONE; -LIDOCAINE SOLN 4% 50 ML BOTTLE ONE; -MUPIROCIN 2% CREAM 15 GM TUBE TP ONE
[2021-10-04] MEDS ORDERED: LIDOCAINE SOLN 4% 50 ML BOTTLE ONE ×2 (08:37→09:08)
[2021-10-04] MEDS ORDERED: HYDROCORTISONE 1% CREAM 28.35 GM TUBE TP ONE (08:38)
[2021-10-04] MEDS ORDERED: MUPIROCIN 2% CREAM 15 GM TUBE TP ONE (08:38)
[2021-10-04] MEDS ORDERED: GENTAMICIN 0.1% CREAM 15 GM TUBE ONE (08:38)
[2021-10-04] MEDS ORDERED: CLOTRIMAZOLE 1% 15 GM TUBE TP ONE (08:39)
== END 2021-10-04 23:59 | disposition short-term general hospital (02) ==
LOC: WOU 08:20
PROVIDERS: ATTEND Podiatrist Foot & Ankle Surgery
DX: I87.312 Chronic venous hypertension (idiopathic) with ulcer of left lower extremity (principal); L97.222 Non-pressure chronic ulcer of left calf with fat layer exposed; I73.9 Peripheral vascular disease, unspecified; M20.42 Other hammer toe(s) (acquired), left foot; M20.41 Other hammer toe(s) (acquired), right foot; M21.42 Flat foot [pes planus] (acquired), left foot; B35.1 Tinea unguium; M79.605 Pain in left leg; Z79.899 Other long term (current) drug therapy; Z79.82 Long term (current) use of aspirin
CPT/HCPCS: 11042; 11045; A6253; J7040

== ENCOUNTER 2021-10-07 08:00 | Outpatient (CLI) | payer MEDICARE, OTHER ==
[2021-10-07] MEDS ORDERED: LIDOCAINE SOLN 4% 50 ML BOTTLE ONE (08:20)
[2021-10-07] MEDS ORDERED: MUPIROCIN 2% CREAM 15 GM TUBE TP ONE (09:17)
[2021-10-07] MEDS ORDERED: GENTAMICIN 0.1% CREAM 15 GM TUBE ONE (09:18)
[2021-10-07] MEDS ORDERED: CLOTRIMAZOLE 1% 15 GM TUBE TP ONE (09:18)
[2021-10-07] MEDS ORDERED: HYDROCORTISONE 1% CREAM 28.35 GM TUBE TP ONE (09:18)
== END 2021-10-07 23:59 | disposition home health service (06) ==
LOC: WOU 08:00
PROVIDERS: ATTEND Podiatrist Foot & Ankle Surgery
DX: I87.312 Chronic venous hypertension (idiopathic) with ulcer of left lower extremity (principal); L97.222 Non-pressure chronic ulcer of left calf with fat layer exposed; I73.9 Peripheral vascular disease, unspecified; M21.42 Flat foot [pes planus] (acquired), left foot; M20.42 Other hammer toe(s) (acquired), left foot; M20.41 Other hammer toe(s) (acquired), right foot; I89.0 Lymphedema, not elsewhere classified; M79.605 Pain in left leg; B35.1 Tinea unguium; Z74.09 Other reduced mobility; Z79.899 Other long term (current) drug therapy; Z79.82 Long term (current) use of aspirin
CPT/HCPCS: 11042; 11045; A6253; J7040

== ENCOUNTER 2021-10-11 08:13 | Outpatient (CLI) | payer MEDICARE, OTHER ==
[~2021-10-11 08:13] MED LIST changes: +LIDOCAINE SOLN 4% 50 ML BOTTLE ONE
[2021-10-11] MEDS ORDERED: MUPIROCIN 2% CREAM 15 GM TUBE TP ONE (08:23)
[2021-10-11] MEDS ORDERED: CLOTRIMAZOLE 1% 15 GM TUBE TP ONE (08:24)
[2021-10-11] MEDS ORDERED: GENTAMICIN 0.1% CREAM 15 GM TUBE ONE (08:24)
[2021-10-11] MEDS ORDERED: HYDROCORTISONE 1% CREAM 28.35 GM TUBE TP ONE (08:24)
[2021-10-11] MEDS ORDERED: LIDOCAINE SOLN 4% 50 ML BOTTLE ONE (08:58)
== END 2021-10-11 23:59 | disposition home health service (06) ==
LOC: WOU 08:13
PROVIDERS: ATTEND Podiatrist Foot & Ankle Surgery
DX: I87.312 Chronic venous hypertension (idiopathic) with ulcer of left lower extremity (principal); L97.222 Non-pressure chronic ulcer of left calf with fat layer exposed; I73.9 Peripheral vascular disease, unspecified; B35.1 Tinea unguium; I89.0 Lymphedema, not elsewhere classified; M20.42 Other hammer toe(s) (acquired), left foot; M20.41 Other hammer toe(s) (acquired), right foot; M21.42 Flat foot [pes planus] (acquired), left foot; Z74.09 Other reduced mobility; I10 Essential (primary) hypertension; Z79.899 Other long term (current) drug therapy
CPT/HCPCS: 11042; 11045; A6253; J7040

== ENCOUNTER 2021-10-14 08:08 | Outpatient (CLI) | payer MEDICARE, OTHER ==
[~2021-10-14 08:08] MED LIST changes: -LIDOCAINE SOLN 4% 50 ML BOTTLE ONE
[2021-10-14] MEDS ORDERED: LIDOCAINE SOLN 4% 50 ML BOTTLE ONE (08:12)
[2021-10-14] MEDS ORDERED: GENTAMICIN 0.1% CREAM 15 GM TUBE ONE (08:31)
[2021-10-14] MEDS ORDERED: MUPIROCIN 2% CREAM 15 GM TUBE TP ONE (08:31)
[2021-10-14] MEDS ORDERED: HYDROCORTISONE 1% CREAM 28.35 GM TUBE TP ONE (08:32)
[2021-10-14] MEDS ORDERED: CLOTRIMAZOLE 1% 15 GM TUBE TP ONE (08:32)
== END 2021-10-14 23:59 | disposition home or self-care (01) ==
LOC: WOU 08:08
PROVIDERS: ATTEND Podiatrist Foot & Ankle Surgery
DX: I87.312 Chronic venous hypertension (idiopathic) with ulcer of left lower extremity (principal); L97.222 Non-pressure chronic ulcer of left calf with fat layer exposed; I73.9 Peripheral vascular disease, unspecified; M20.42 Other hammer toe(s) (acquired), left foot; M20.41 Other hammer toe(s) (acquired), right foot; M21.42 Flat foot [pes planus] (acquired), left foot; B35.1 Tinea unguium; Z79.82 Long term (current) use of aspirin; Z79.899 Other long term (current) drug therapy; Z74.09 Other reduced mobility
CPT/HCPCS: 11042; 11045; A6253; J7040

== ENCOUNTER 2021-10-18 08:26 | Outpatient (CLI) | payer MEDICARE, OTHER ==
[2021-10-18] MEDS ORDERED: LIDOCAINE SOLN 4% 50 ML BOTTLE ONE ×2 (08:27→09:00)
[2021-10-18] MEDS ORDERED: GENTAMICIN 0.1% CREAM 15 GM TUBE ONE (08:28)
[2021-10-18] MEDS ORDERED: MUPIROCIN 2% CREAM 15 GM TUBE TP ONE (08:28)
[2021-10-18] MEDS ORDERED: HYDROCORTISONE 1% CREAM 28.35 GM TUBE TP ONE (08:28)
[2021-10-18] MEDS ORDERED: CLOTRIMAZOLE 1% 15 GM TUBE TP ONE (08:29)
== END 2021-10-18 23:59 | disposition home health service (06) ==
LOC: WOU 08:26
PROVIDERS: ATTEND Podiatrist Foot & Ankle Surgery
DX: I87.312 Chronic venous hypertension (idiopathic) with ulcer of left lower extremity (principal); L97.222 Non-pressure chronic ulcer of left calf with fat layer exposed; I73.9 Peripheral vascular disease, unspecified; M20.42 Other hammer toe(s) (acquired), left foot; M20.41 Other hammer toe(s) (acquired), right foot; M21.42 Flat foot [pes planus] (acquired), left foot; B35.1 Tinea unguium; M79.605 Pain in left leg; M79.675 Pain in left toe(s); Z79.82 Long term (current) use of aspirin; Z79.899 Other long term (current) drug therapy
CPT/HCPCS: 11042; 11045; A6253; J7040

== ENCOUNTER 2021-10-21 08:15 | Outpatient (CLI) | payer MEDICARE, OTHER ==
[2021-10-21] MEDS ORDERED: LIDOCAINE SOLN 4% 50 ML BOTTLE ONE (08:16)
[2021-10-21] MEDS ORDERED: MUPIROCIN 2% CREAM 15 GM TUBE TP ONE (08:18)
[2021-10-21] MEDS ORDERED: HYDROCORTISONE 1% CREAM 28.35 GM TUBE TP ONE (08:18)
[2021-10-21] MEDS ORDERED: GENTAMICIN 0.1% CREAM 15 GM TUBE ONE (08:18)
[2021-10-21] MEDS ORDERED: CLOTRIMAZOLE 1% 15 GM TUBE TP ONE (08:19)
== END 2021-10-21 23:59 | disposition home health service (06) ==
LOC: WOU 08:15
PROVIDERS: ATTEND Podiatrist Foot & Ankle Surgery
DX: I87.312 Chronic venous hypertension (idiopathic) with ulcer of left lower extremity (principal); L97.222 Non-pressure chronic ulcer of left calf with fat layer exposed; I73.9 Peripheral vascular disease, unspecified; M20.42 Other hammer toe(s) (acquired), left foot; M20.41 Other hammer toe(s) (acquired), right foot; M21.42 Flat foot [pes planus] (acquired), left foot; M79.605 Pain in left leg; I89.0 Lymphedema, not elsewhere classified; Z79.82 Long term (current) use of aspirin; Z79.899 Other long term (current) drug therapy
CPT/HCPCS: 11042; 11045; A6253; J7040

== ENCOUNTER 2021-10-25 08:10 | Outpatient (CLI) | payer MEDICARE, OTHER ==
[2021-10-25] MEDS ORDERED: LIDOCAINE SOLN 4% 50 ML BOTTLE ONE ×2 (08:21→08:53)
[2021-10-25] MEDS ORDERED: MUPIROCIN 2% CREAM 15 GM TUBE TP ONE (08:45)
[2021-10-25] MEDS ORDERED: GENTAMICIN 0.1% CREAM 15 GM TUBE ONE (08:46)
[2021-10-25] MEDS ORDERED: CLOTRIMAZOLE 1% 15 GM TUBE TP ONE (08:46)
== END 2021-10-25 23:59 | disposition home health service (06) ==
LOC: WOU 08:10
PROVIDERS: ATTEND Podiatrist Foot & Ankle Surgery
DX: I87.312 Chronic venous hypertension (idiopathic) with ulcer of left lower extremity (principal); L97.222 Non-pressure chronic ulcer of left calf with fat layer exposed; I73.9 Peripheral vascular disease, unspecified; M20.42 Other hammer toe(s) (acquired), left foot; M20.41 Other hammer toe(s) (acquired), right foot; M21.42 Flat foot [pes planus] (acquired), left foot; I89.0 Lymphedema, not elsewhere classified; B35.1 Tinea unguium; M79.605 Pain in left leg; Z74.09 Other reduced mobility; Z79.82 Long term (current) use of aspirin; Z79.899 Other long term (current) drug therapy
CPT/HCPCS: 11042; 11045; 87070; 87075; 87077; A6253; J7040

== ENCOUNTER 2021-10-28 08:05 | Outpatient (CLI) | payer MEDICARE, OTHER ==
[2021-10-28] MEDS ORDERED: LIDOCAINE SOLN 4% 50 ML BOTTLE ONE (08:20)
[2021-10-28] MEDS ORDERED: CLOTRIMAZOLE 1% 15 GM TUBE TP ONE (09:04)
[2021-10-28] MEDS ORDERED: GENTAMICIN 0.1% CREAM 15 GM TUBE ONE (09:04)
[2021-10-28] MEDS ORDERED: HYDROCORTISONE 1% CREAM 28.35 GM TUBE TP ONE (09:04)
[2021-10-28] MEDS ORDERED: MUPIROCIN 2% CREAM 15 GM TUBE TP ONE (09:04)
[2021-10-28 10:08] LABS: BASOPHILS % (AUTO) 0.1 % (0.0-2.0); EOSINOPHILS % (AUTO) 1.6 % (0.0-6.0); HEMATOCRIT 33 % (33-45); HEMOGLOBIN 10.6 g/dL (11.5-14.8); LYMPHOCYTES % (AUTO) 12.2 % (20.0-44.0); MEAN CORPUSCULAR HGB CONC 32 g/dl (31.0-36.0); MEAN CORPUSCULAR VOLUME 88 fL (82-100); MONOCYTES # (AUTO) 0.5 K/uL (0.1-1.30); MONOCYTES % (AUTO) 6.1 % (2.0-12.0); NEUTROPHILS # (AUTO) 6.5 K/uL (1.8-8.9); PLATELET COUNT (AUTO) 247 K/uL (150-450); RED BLOOD CELL COUNT(AUTO) 3.74 MIL/uL (4.0-5.2); WHITE BLOOD COUNT (AUTO) 8.2 K/uL (4.3-11.0)
[2021-10-28 10:24] LABS: C-REACTIVE PROTEIN 2.4 mg/dL (0.0-0.9)
[2021-10-28 10:27] LABS: CALCIUM, SERUM 8.9 mg/dL (8.5-10.1); CREATININE 0.7 mg/dL (0.6-1.3); POTASSIUM 4.1 mmol/L (3.5-5.1)
== END 2021-10-28 23:59 | disposition home health service (06) ==
LOC: WOU 08:05
PROVIDERS: ATTEND Podiatrist Foot & Ankle Surgery
DX: I87.312 Chronic venous hypertension (idiopathic) with ulcer of left lower extremity (principal); L97.222 Non-pressure chronic ulcer of left calf with fat layer exposed; M20.42 Other hammer toe(s) (acquired), left foot; I73.9 Peripheral vascular disease, unspecified; M21.42 Flat foot [pes planus] (acquired), left foot; M21.41 Flat foot [pes planus] (acquired), right foot; I89.0 Lymphedema, not elsewhere classified; B35.1 Tinea unguium; M79.605 Pain in left leg; Z74.09 Other reduced mobility; Z79.82 Long term (current) use of aspirin; Z79.899 Other long term (current) drug therapy
CPT/HCPCS: 11042; 11045; 36415; 80048; 82040; 85025; 85652; 86140; A6253; J7040

== ENCOUNTER 2021-11-01 09:30 | Outpatient (CLI) | payer MEDICARE, OTHER ==
[2021-11-01] MEDS ORDERED: LIDOCAINE SOLN 4% 50 ML BOTTLE ONE (09:51)
[2021-11-01] MEDS ORDERED: GENTAMICIN 0.1% CREAM 15 GM TUBE ONE (10:37)
[2021-11-01] MEDS ORDERED: CLOTRIMAZOLE 1% 15 GM TUBE TP ONE (10:37)
[2021-11-01] MEDS ORDERED: MUPIROCIN 2% CREAM 15 GM TUBE TP ONE (10:37)
== END 2021-11-01 23:59 | disposition home health service (06) ==
LOC: WOU 09:30
PROVIDERS: ATTEND Podiatrist Foot & Ankle Surgery
DX: I87.312 Chronic venous hypertension (idiopathic) with ulcer of left lower extremity (principal); L97.222 Non-pressure chronic ulcer of left calf with fat layer exposed; I73.9 Peripheral vascular disease, unspecified; I89.0 Lymphedema, not elsewhere classified; M20.42 Other hammer toe(s) (acquired), left foot; M20.41 Other hammer toe(s) (acquired), right foot; M21.42 Flat foot [pes planus] (acquired), left foot; B35.1 Tinea unguium; M79.675 Pain in left toe(s); M79.605 Pain in left leg
CPT/HCPCS: 11042; 11045; A6253 ×2; J7040

== ENCOUNTER 2021-11-04 08:10 | Outpatient (CLI) | payer MEDICARE, OTHER ==
[2021-11-04] MEDS ORDERED: LIDOCAINE SOLN 4% 50 ML BOTTLE ONE (08:17)
[2021-11-04] MEDS ORDERED: GENTAMICIN 0.1% CREAM 15 GM TUBE ONE (08:31)
[2021-11-04] MEDS ORDERED: MUPIROCIN 2% CREAM 15 GM TUBE TP ONE (08:31)
[2021-11-04] MEDS ORDERED: HYDROCORTISONE 1% CREAM 28.35 GM TUBE TP ONE (08:32)
[2021-11-04] MEDS ORDERED: CLOTRIMAZOLE 1% 15 GM TUBE TP ONE (08:32)
== END 2021-11-04 23:59 | disposition home health service (06) ==
LOC: WOU 08:10
PROVIDERS: ATTEND Podiatrist Foot & Ankle Surgery
DX: I87.312 Chronic venous hypertension (idiopathic) with ulcer of left lower extremity (principal); L97.222 Non-pressure chronic ulcer of left calf with fat layer exposed; I73.9 Peripheral vascular disease, unspecified; I89.0 Lymphedema, not elsewhere classified; B35.1 Tinea unguium; M21.42 Flat foot [pes planus] (acquired), left foot; M20.41 Other hammer toe(s) (acquired), right foot; M79.605 Pain in left leg; Z74.09 Other reduced mobility; Z79.82 Long term (current) use of aspirin; Z79.899 Other long term (current) drug therapy
CPT/HCPCS: 11042; 11045; A6253; J7040

== ENCOUNTER 2021-11-08 08:15 | Outpatient (CLI) | payer MEDICARE, OTHER ==
[2021-11-08] MEDS ORDERED: LIDOCAINE SOLN 4% 50 ML BOTTLE ONE (08:32)
[2021-11-08] MEDS ORDERED: GENTAMICIN 0.1% CREAM 15 GM TUBE ONE (08:58)
[2021-11-08] MEDS ORDERED: HYDROCORTISONE 1% CREAM 28.35 GM TUBE TP ONE (08:58)
[2021-11-08] MEDS ORDERED: CLOTRIMAZOLE 1% 15 GM TUBE TP ONE (08:59)
[2021-11-08] MEDS ORDERED: MUPIROCIN 2% CREAM 15 GM TUBE TP ONE (08:59)
== END 2021-11-08 23:59 | disposition home health service (06) ==
LOC: WOU 08:15
PROVIDERS: ATTEND Podiatrist Foot & Ankle Surgery
DX: I87.312 Chronic venous hypertension (idiopathic) with ulcer of left lower extremity (principal); L97.222 Non-pressure chronic ulcer of left calf with fat layer exposed; I73.9 Peripheral vascular disease, unspecified; I89.0 Lymphedema, not elsewhere classified; M20.42 Other hammer toe(s) (acquired), left foot; M20.41 Other hammer toe(s) (acquired), right foot; M21.42 Flat foot [pes planus] (acquired), left foot; B35.1 Tinea unguium; Z74.09 Other reduced mobility; I10 Essential (primary) hypertension; Z79.899 Other long term (current) drug therapy
CPT/HCPCS: 11042; 11045; A6253; J7040

== ENCOUNTER 2021-11-11 08:05 | Outpatient (CLI) | payer MEDICARE, OTHER ==
[2021-11-11] MEDS ORDERED: LIDOCAINE SOLN 4% 50 ML BOTTLE ONE (08:20)
[2021-11-11] MEDS ORDERED: MUPIROCIN 2% CREAM 15 GM TUBE TP ONE (08:34)
[2021-11-11] MEDS ORDERED: GENTAMICIN 0.1% CREAM 15 GM TUBE ONE (08:35)
[2021-11-11] MEDS ORDERED: CLOTRIMAZOLE 1% 15 GM TUBE TP ONE (08:35)
[2021-11-11] MEDS ORDERED: HYDROCORTISONE 1% CREAM 28.35 GM TUBE TP ONE (08:35)
== END 2021-11-11 23:59 | disposition home health service (06) ==
LOC: WOU 08:05
PROVIDERS: ATTEND Podiatrist Foot & Ankle Surgery
DX: I87.312 Chronic venous hypertension (idiopathic) with ulcer of left lower extremity (principal); L97.222 Non-pressure chronic ulcer of left calf with fat layer exposed; I73.9 Peripheral vascular disease, unspecified; I89.0 Lymphedema, not elsewhere classified; M20.42 Other hammer toe(s) (acquired), left foot; M20.41 Other hammer toe(s) (acquired), right foot; M21.42 Flat foot [pes planus] (acquired), left foot; B35.1 Tinea unguium; Z74.09 Other reduced mobility; M79.605 Pain in left leg; Z79.82 Long term (current) use of aspirin
CPT/HCPCS: 11042; 11045; A6253; J7040

== ENCOUNTER 2021-11-11 09:30 | Outpatient (CLI) | payer MEDICARE, OTHER ==
[2021-11-11 10:25] LABS: BASOPHILS % (AUTO) 0.2 % (0.0-2.0); EOSINOPHILS % (AUTO) 1.8 % (0.0-6.0); HEMATOCRIT 35 % (33-45); HEMOGLOBIN 11.4 g/dL (11.5-14.8); LYMPHOCYTES % (AUTO) 16.5 % (20.0-44.0); MEAN CORPUSCULAR HGB CONC 33 g/dl (31.0-36.0); MEAN CORPUSCULAR VOLUME 87 fL (82-100); MONOCYTES # (AUTO) 0.3 K/uL (0.1-1.30); MONOCYTES % (AUTO) 5.1 % (2.0-12.0); NEUTROPHILS # (AUTO) 4.6 K/uL (1.8-8.9); NEUTROPHILS % (AUTO) 76.4 % (43.0-81.0); PLATELET COUNT (AUTO) 251 K/uL (150-450); RED BLOOD CELL COUNT(AUTO) 3.98 MIL/uL (4.0-5.2); WHITE BLOOD COUNT (AUTO) 6.1 K/uL (4.3-11.0)
[2021-11-11 10:39] LABS: C-REACTIVE PROTEIN 1.6 mg/dL (0.0-0.9)
[2021-11-11 10:44] LABS: ALBUMIN 3.2 g/dL (3.4-5.0); BILIRUBIN,TOTAL 0.2 mg/dL (0.2-1.0); CALCIUM, SERUM 8.9 mg/dL (8.5-10.1); CREATININE 0.8 mg/dL (0.6-1.3); TOTAL PROTEIN, SERUM 7.4 g/dL (6.4-8.2)
== END 2021-11-11 23:59 | disposition home or self-care (01) ==
LOC: LAB 09:30
PROVIDERS: ATTEND Podiatrist Foot & Ankle Surgery
DX: Z01.818 Encounter for other preprocedural examination (principal); I87.2 Venous insufficiency (chronic) (peripheral); L97.222 Non-pressure chronic ulcer of left calf with fat layer exposed; R06.00 Dyspnea, unspecified; I70.90 Unspecified atherosclerosis; Z95.0 Presence of cardiac pacemaker
CPT/HCPCS: 36415; 71045-TC; 80053-TC; 85025-TC; 85652-TC; 85730-TC; 86140-TC

== ENCOUNTER 2021-11-15 08:05 | Outpatient (CLI) | payer MEDICARE, OTHER ==
[~2021-11-15 08:05] MED LIST changes: -LEVO75TA7 MT; +LEVO75TA7 PO; -LISI10TA29 MT; +LISI10TA29 PO
[2021-11-15] MEDS ORDERED: LIDOCAINE SOLN 4% 50 ML BOTTLE ONE (08:20)
[2021-11-15] MEDS ORDERED: GENTAMICIN 0.1% CREAM 15 GM TUBE ONE (09:04)
[2021-11-15] MEDS ORDERED: HYDROCORTISONE 1% CREAM 28.35 GM TUBE TP ONE (09:04)
[2021-11-15] MEDS ORDERED: MUPIROCIN 2% CREAM 15 GM TUBE TP ONE (09:04)
[2021-11-15] MEDS ORDERED: CLOTRIMAZOLE 1% 15 GM TUBE TP ONE (09:05)
== END 2021-11-15 23:59 | disposition home health service (06) ==
LOC: WOU 08:05
PROVIDERS: ATTEND Podiatrist Foot & Ankle Surgery
DX: I87.312 Chronic venous hypertension (idiopathic) with ulcer of left lower extremity (principal); L97.222 Non-pressure chronic ulcer of left calf with fat layer exposed; I73.9 Peripheral vascular disease, unspecified; I89.0 Lymphedema, not elsewhere classified; M20.42 Other hammer toe(s) (acquired), left foot; M20.41 Other hammer toe(s) (acquired), right foot; M21.42 Flat foot [pes planus] (acquired), left foot; B35.1 Tinea unguium; M79.605 Pain in left leg; Z79.899 Other long term (current) drug therapy; Z79.82 Long term (current) use of aspirin
CPT/HCPCS: 11042; 11045; A6253; J7040

== ENCOUNTER 2021-11-15 09:47 | Outpatient (CLI) | payer MEDICARE, OTHER ==
[~2021-11-15 09:47] MED LIST changes: +LEVO75TA7 MT; -LEVO75TA7 PO; +LISI10TA29 MT; -LISI10TA29 PO
== END 2021-11-15 23:59 | disposition home or self-care (01) ==
LOC: MSC 09:47
PROVIDERS: ATTEND Internal Medicine
DX: Z01.818 Encounter for other preprocedural examination (principal); S91.302D Unspecified open wound, left foot, subsequent encounter; Z86.73 Personal history of transient ischemic attack (TIA), and cerebral infarction without residual deficits; M85.80 Other specified disorders of bone density and structure, unspecified site; D64.9 Anemia, unspecified; I10 Essential (primary) hypertension; E78.5 Hyperlipidemia, unspecified; E03.9 Hypothyroidism, unspecified; Z79.890 Hormone replacement therapy; I87.2 Venous insufficiency (chronic) (peripheral); M19.90 Unspecified osteoarthritis, unspecified site; Z86.79 Personal history of other diseases of the circulatory system

== ENCOUNTER 2021-11-15 10:13 | Outpatient (CLI) | payer MEDICARE, OTHER ==
[~2021-11-15 10:13] MED LIST changes: -LEVO75TA7 MT; +LEVO75TA7 PO; -LISI10TA29 MT; +LISI10TA29 PO
[2021-11-25] MEDS ORDERED: ASCO500T21 PO (10:22)
[2021-11-25] MEDS ORDERED: Zinc Sulfate PO (10:22)
[2021-11-25] MEDS ORDERED: DOXY100T2 PO (10:22)
[2021-11-25] MEDS ORDERED: ENOX40DI SQ (10:22)
== END 2021-11-15 23:59 | disposition home or self-care (01) ==
LOC: LAB 10:13
PROVIDERS: ATTEND Podiatrist Foot & Ankle Surgery
DX: Z01.812 Encounter for preprocedural laboratory examination (principal); Z20.822 Contact with and (suspected) exposure to COVID-19
CPT/HCPCS: C9803; U0003

== ENCOUNTER 2021-11-18 08:00 | Outpatient (CLI) | payer MEDICARE, OTHER ==
[2021-11-18] MEDS ORDERED: LIDOCAINE SOLN 4% 50 ML BOTTLE ONE ×2 (08:18→09:27)
[2021-11-18] MEDS ORDERED: MUPIROCIN 2% CREAM 15 GM TUBE TP ONE (09:28)
[2021-11-18] MEDS ORDERED: HYDROCORTISONE 1% CREAM 28.35 GM TUBE TP ONE (09:28)
[2021-11-18] MEDS ORDERED: GENTAMICIN 0.1% CREAM 15 GM TUBE ONE (09:28)
[2021-11-18] MEDS ORDERED: CLOTRIMAZOLE 1% 15 GM TUBE TP ONE (09:29)
[2021-11-18 10:36] LABS: BASOPHILS % (AUTO) 0.3 % (0.0-2.0); EOSINOPHILS % (AUTO) 1.6 % (0.0-6.0); HEMATOCRIT 33 % (33-45); HEMOGLOBIN 10.7 g/dL (11.5-14.8); LYMPHOCYTES # (AUTO) 0.8 K/uL (0.8-4.8); LYMPHOCYTES % (AUTO) 12.9 % (20.0-44.0); MEAN CORPUSCULAR HGB CONC 33 g/dl (31.0-36.0); MEAN CORPUSCULAR VOLUME 87 fL (82-100); MONOCYTES # (AUTO) 0.3 K/uL (0.1-1.30); MONOCYTES % (AUTO) 4.7 % (2.0-12.0); NEUTROPHILS # (AUTO) 5.2 K/uL (1.8-8.9); NEUTROPHILS % (AUTO) 80.5 % (43.0-81.0); PLATELET COUNT (AUTO) 270 K/uL (150-450); WHITE BLOOD COUNT (AUTO) 6.5 K/uL (4.3-11.0)
[2021-11-18 11:19] LABS: CREATININE 0.7 mg/dL (0.6-1.3); POTASSIUM 4.1 mmol/L (3.5-5.1)
[2021-11-18 12:14] LABS: CALCIUM, SERUM 8.7 mg/dL (8.5-10.1)
[2021-11-18 13:41] LABS: C-REACTIVE PROTEIN 7.2 mg/dL (0.0-0.9)
[2021-11-25] MEDS ORDERED: ASCO500T21 PO (10:22)
[2021-11-25] MEDS ORDERED: DOXY100T2 PO (10:22)
[2021-11-25] MEDS ORDERED: ENOX40DI SQ (10:22)
[2021-11-25] MEDS ORDERED: Zinc Sulfate PO (10:22)
== END 2021-11-18 23:59 | disposition home health service (06) ==
LOC: WOU 08:00
PROVIDERS: ATTEND Podiatrist Foot & Ankle Surgery
DX: I87.312 Chronic venous hypertension (idiopathic) with ulcer of left lower extremity (principal); L97.222 Non-pressure chronic ulcer of left calf with fat layer exposed; I73.9 Peripheral vascular disease, unspecified; L03.90 Cellulitis, unspecified; I89.0 Lymphedema, not elsewhere classified; M20.42 Other hammer toe(s) (acquired), left foot; M20.41 Other hammer toe(s) (acquired), right foot; B35.1 Tinea unguium; M79.605 Pain in left leg; I10 Essential (primary) hypertension; Z74.09 Other reduced mobility; Z79.82 Long term (current) use of aspirin; Z79.899 Other long term (current) drug therapy
CPT/HCPCS: 11042; 11045; 36415; 80048; 82040; 85025; 85652; 86140; A6253; J7040

== ENCOUNTER 2021-11-22 05:20 | Inpatient (IN) | payer MEDICARE, OTHER ==
[~2021-11-22] VITALS: Ht 152.4 cm; Wt 52.2 kg
--- NOTE | 2021-11-22 06:43 | NUR ---
RN NOTE 0545 RECEIVED PT FOR DAY SURGERY FOR PROCEDURE: SPLIT THICKNESS SKIN GRAFT FOOT/ANKLE LEFT, AND APPLICATION OF WOUND VAC. PT AWAKE, A/OX4, ABLE TO MAKE NEEDS KNOWN. RESPIRATIONS EVEN/UNLABORED. AMBULATES WITH FWW WITH SLOW STEADY GAIT. L-FT WITH DRESSING IN PLACE. STARTED IV ACCESS: R-FA #20G WITH GOOD BLOOD RETURN. PT VERBALIZED UNDERSTANDING OF PROCEDURE. CONSENTS SIGNED. BELONGINGS RECORDED. SAFETY INSTRUCTIONS PROVIDED AND PT VERBALIZED UNDERSTANDING. Addendum: 11/22/21 at 0729 by GABE MANLEY RN V/S 153/76, 60, 16, 97.6, 99%
[2021-11-22] MEDS ORDERED: MIDAZOLAM HCL 2 MG/2ML VIAL ONE (06:47)
[2021-11-22] MEDS ORDERED: FENTANYL PF 250MCG/5ML AMPUL ONE (06:47)
[2021-11-22] MEDS ORDERED: FAMOTIDINE/PF INJ 20 MG/2 ML VIAL IV ONE (06:48)
--- NOTE | 2021-11-22 07:08 | NUR ---
RN NOTE PT TAKEN DOWN TO O.R.
[2021-11-22] MEDS ORDERED: LIDOCAINE 1%-EPI 1:100,000 20 ML VIAL ONE ×2 (07:43→07:48)
[2021-11-22] MEDS ORDERED: MINERAL OIL 10 ML VIAL MC ONE (07:43)
--- NOTE | 2021-11-22 07:45 | NUR ---
MS RN OPENING NOTES RECEIVED REPORT FROM PM NURSE. PATIENT WENT TO OR FOR SKIN GRAFT FOOT/ANKLE SX.
[2021-11-22] MEDS ORDERED: THROMBIN (BOVINE) 5,000 UNITS VIAL TP ONE (07:59)
[2021-11-22] MEDS ORDERED: HYDROCODONE/APAP 5/325MG TABLET PO PRN ×2 (09:30)
[2021-11-22] MEDS ORDERED: MORPHINE SULFATE INJ 2 MG/ML DISP.SYRIN IV PRN (09:30)
[2021-11-22] MEDS ORDERED: ZOLPIDEM TARTRATE 5 MG TABLET PO PRN (09:30)
[2021-11-22] MEDS ORDERED: ONDANSETRON HCL/PF 4 MG/2 ML VIAL IVP PRN ×2 (09:30→11:30)
--- NOTE | 2021-11-22 09:30 | NUR ---
MS RN NOTES PATIENT CAME BACK FROM THE OR, S/P. SPLIT THICKNESS SKIN GRAFT ANKLE LEFT. PATIENT IS ALERT, AWAKE AND ORIENTED X 4. PATIENT IS A [place] SPEAKER, AND ABLE TO COMMUNICATE HER NEEDS. LEFT LOWER EXTREMITIES IS ELEVATED WITH 2 PILLOWS, AND HAS A GOOD CIRCULATION; SURGERY GAUZE AND PAWAN BANDAGE IN PLACE, CLEAN, DRY, AND INTACT. V/S IS WITHIN NORMAL LIMITS: B/P 146/46, HR 63, 97.9c, 95%, AND 18 RESPIRATION. SCS IN RIGHT LE. IV IS IN R FA #20G, INTACT AND PATENT IN NS AND HAS AN ORDER FOR D/C. WILL CONTINUE TO MONITOR FOR VINEET.
[2021-11-22 10:00] VITALS: BP 146/46
[2021-11-22] MEDS ORDERED: FAMO20TA8 PO (10:24)
[2021-11-22] MEDS ORDERED: FERR325T24 PO (10:24)
[2021-11-22] MEDS ORDERED: POLY15DR12 EACHEYE (10:24)
[2021-11-22] MEDS ORDERED: CALC500T63 PO (10:24)
[2021-11-22] MEDS ORDERED: [UNRECOGNIZED DRUG - OTHER] PO (10:24)
[2021-11-22 10:50] LABS: BILIRUBIN,URINE NEGATIVE (NEGATIVE); COLOR,URINE YELLOW (YELLOW); LEUKOCYTE ESTERASE ,URINE NEGATIVE (NEGATIVE); NITRITE, URINE NEGATIVE (NEGATIVE); PROTEIN,URINE NEGATIVE (NEGATIVE); UGLUCOSE NEGATIVE (NEGATIVE); UROBILINOGEN,URINE 0.2 EU/dL (0.2)
[2021-11-22] MEDS ORDERED: GABA600T12 PO (10:55)
[2021-11-22] MEDS ORDERED: IBAN150T16 PO (10:55)
[2021-11-22] MEDS ORDERED: POLYVINYL ALCOHOL 15 ML BOTTLE EACHEYE PRN (11:00)
[2021-11-22] MEDS ORDERED: CALCIUM CARBONATE 500 MG TAB.CHEW PO PRN (11:00)
[2021-11-22] MEDS ORDERED: ENOXAPARIN SODIUM 40 MG/0.4 ML DISP.SYRIN SQ SCH (11:30)
[2021-11-22 12:19] LABS: BASOPHILS % (AUTO) 0.1 % (0.0-2.0); EOSINOPHILS % (AUTO) 0.4 % (0.0-6.0); HEMATOCRIT 29 % (33-45); HEMOGLOBIN 9.7 g/dL (11.5-14.8); LYMPHOCYTES # (AUTO) 0.4 K/uL (0.8-4.8); LYMPHOCYTES % (AUTO) 3.9 % (20.0-44.0); MEAN CORPUSCULAR HGB CONC 34 g/dl (31.0-36.0); MEAN CORPUSCULAR VOLUME 86 fL (82-100); MONOCYTES # (AUTO) 0.2 K/uL (0.1-1.30); MONOCYTES % (AUTO) 1.9 % (2.0-12.0); NEUTROPHILS % (AUTO) 93.7 % (43.0-81.0); PLATELET COUNT (AUTO) 227 K/uL (150-450); RED BLOOD CELL COUNT(AUTO) 3.32 MIL/uL (4.0-5.2); WHITE BLOOD COUNT (AUTO) 10.6 K/uL (4.3-11.0)
[2021-11-22 12:54] LABS: CALCIUM, SERUM 7.9 mg/dL (8.5-10.1); CREATININE 0.6 mg/dL (0.6-1.3); POTASSIUM 3.9 mmol/L (3.5-5.1)
[2021-11-22 14:10] VITALS: BP 146/46
[2021-11-22] MEDS: ANCEF 1 GM/50 ML D5W IV SCH ×4 (14:48→22:10)
[2021-11-22] MEDS: ENOXAPARIN SODIUM 40 MG/0.4 ML DISP.SYRIN SQ SCH (15:10)
[2021-11-22] MEDS: ACETAMINOPHEN 325 MG TABLET PO PRN (16:49)
[2021-11-22] MEDS: FERROUS SULFATE (325 MG) 325 MG/TAB TABLET PO SCH (16:49)
[2021-11-22] MEDS: FAMOTIDINE (20 MG) 20 MG TABLET PO SCH (16:50)
[2021-11-22] MEDS: GABAPENTIN 300 MG CAPSULE PO SCH (16:50)
--- NOTE | 2021-11-22 19:45 | NUR ---
MS RN CLOSING NOTES PATIENT IS ALERT, AWAKE AND ORIENTED X 4. SCS IN RIGHT LE. IV IS IN R FA #20G SL, INTACT. NO SIGNS OF DISCOMFORT AND DISTRESS. PATIENT HAD A SURGERY THIS MORNING; S/P. SPLIT THICKNESS SKIN GRAFT ANKLE LEFT. LEFT LOWER EXTREMITIES IS ELEVATED WITH 2 PILLOWS, AND HAS A GOOD CIRCULATION; SURGERY GAUZE AND PAWAN BANDAGE IN PLACE, CLEAN, DRY, AND INTACT. PATIENT IS A [place] SPEAKER, AND ABLE TO COMMUNICATE HER NEEDS. V/S IS WITHIN NORMAL LIMITS, AND STABLE. WILL ENDORSE TO INCOMING PM SHIFT FOR VINEET.
--- NOTE | 2021-11-22 19:49 | NUR ---
MS RN OPENING NOTES PATIENT RECEIVED IN AAOX 4. ON RA TATIANA WELL NO SIGN SOB/DISTRESS NOTED. ,IV IS IN R FA #20G SL, INTACT.S/P SPLIT THICKNESS SKIN GRAFT ANKLE LEFT.NO SIGN BLEEDING NOTED. LEFT LOWER EXTREMITIES IS ELEVATED WITH 2 PILLOWS, AND HAS A GOOD CIRCULATION; SURGERY GAUZE AND PAWAN BANDAGE IN PLACE,PATIENT IS A SYRI[place] SPEAKER, AND ABLE TO COMMUNICATE HER NEEDS.SAFETY MEASURE IN PLACE.CALL LIGHT WITHIN REACH. WILL CONTINUE TO MONITOR.
[2021-11-22 19:56] VITALS: BP 129/43
[2021-11-23 01:53] VITALS: BP 129/43
[2021-11-23] MEDS: ANCEF 1 GM/50 ML D5W IV SCH ×2 (05:05)
[2021-11-23 06:42] LABS: BASOPHILS % (AUTO) 0.3 % (0.0-2.0); HEMATOCRIT 29 % (33-45); HEMOGLOBIN 9.6 g/dL (11.5-14.8); LYMPHOCYTES # (AUTO) 1.2 K/uL (0.8-4.8); LYMPHOCYTES % (AUTO) 22.6 % (20.0-44.0); MEAN CORPUSCULAR HGB CONC 33 g/dl (31.0-36.0); MEAN CORPUSCULAR VOLUME 86 fL (82-100); MONOCYTES # (AUTO) 0.5 K/uL (0.1-1.30); MONOCYTES % (AUTO) 8.8 % (2.0-12.0); NEUTROPHILS # (AUTO) 3.4 K/uL (1.8-8.9); NEUTROPHILS % (AUTO) 66.3 % (43.0-81.0); PLATELET COUNT (AUTO) 213 K/uL (150-450); RED BLOOD CELL COUNT(AUTO) 3.34 MIL/uL (4.0-5.2); WHITE BLOOD COUNT (AUTO) 5.1 K/uL (4.3-11.0)
--- NOTE | 2021-11-23 06:44 | NUR ---
MS RN CLOSING NOTES PATIENT IN BED SLEEPING. AAOX 4. ON RA TATIANA WELL NO SIGN SOB/DISTRESS NOTED. ,IV IS IN R FA #20G SL, INTACT.S/P SPLIT THICKNESS SKIN GRAFT ANKLE LEFT.NO SIGN BLEEDING NOTED. LEFT LOWER EXTREMITIES IS ELEVATED WITH 2 PILLOWS, AND HAS A GOOD CIRCULATION; SURGERY GAUZE AND PAWAN BANDAGE IN PLACE,PT IS A SWEDISH SPEAKER, AND ABLE TO COMMUNICATE HER NEEDS.SAFETY MEASURE IN PLACE.CALL LIGHT WITHIN REACH. WILL ENDORSED TO NEXT SHIFT
[2021-11-23 07:07] LABS: CALCIUM, SERUM 8.2 mg/dL (8.5-10.1); CARBON DIOXIDE 27 mmol/L (21-32); CHLORIDE 107 mmol/L (98-107); CREATININE 0.7 mg/dL (0.6-1.3); GLUCOSE 107 mg/dL (74-106); MAGNESIUM 2.2 mg/dL (1.8-2.4); PHOSPHORUS 3.4 mg/dL (2.5-4.9); POTASSIUM 4.1 mmol/L (3.5-5.1); SODIUM SERUM 141 mmol/L (136-145); UREA NITROGEN, BLOOD 19 mg/dL (7-18)
--- NOTE | 2021-11-23 07:30 | NUR ---
MS RN OPENING NOTES RECEIVED PATIENT IS ALERT, AWAKE AND ORIENTED X 4. SCS IN RIGHT LE. IV IS IN R FA #20G SL, INTACT. NO SIGNS OF DISCOMFORT AND DISTRESS. PATIENT HAD A SURGERY THIS YESTERDAY S/P. SPLIT THICKNESS SKIN GRAFT ANKLE LEFT. LEFT LOWER EXTREMITIES IS ELEVATED WITH 2 PILLOWS, AND HAS A GOOD CIRCULATION; SURGERY GAUZE AND PAWAN BANDAGE IN PLACE, CLEAN, DRY, AND INTACT. PATIENT IS A GERMAN SPEAKER, AND ABLE TO COMMUNICATE HER NEEDS. V/S IS WITHIN NORMAL LIMITS, AND STABLE. WILL CONTINUE TO MONITOR FOR VINEET.
[2021-11-23 07:49] LABS: CHOLESTEROL 184 mg/dL (<200); HDL CHOLESTEROL 56 mg/dL (40-60); LDL 108 mg/dL (0-99); TRIGLYCERIDES 99 mg/dL (30-150)
[2021-11-23 08:00] VITALS: BP 167/74
[2021-11-23] MEDS: LEVOTHYROXINE SODIUM 75 MCG TABLET PO SCH (08:36)
[2021-11-23] MEDS: FAMOTIDINE (20 MG) 20 MG TABLET PO SCH ×2 (08:36→16:41)
[2021-11-23] MEDS: FERROUS SULFATE (325 MG) 325 MG/TAB TABLET PO SCH ×2 (08:36→16:41)
[2021-11-23] MEDS: GABAPENTIN 300 MG CAPSULE PO SCH ×3 (08:37→16:41)
[2021-11-23] MEDS: ASCORBIC ACID 500 MG TABLET PO SCH (08:50)
[2021-11-23] MEDS: LISINOPRIL (10MG) 10 MG TABLET PO SCH (08:51)
[2021-11-23] MEDS: ZINC SULFATE 220 MG CAPSULE PO SCH (08:51)
[2021-11-23] MEDS: ENOXAPARIN SODIUM 40 MG/0.4 ML DISP.SYRIN SQ SCH (08:52)
--- NOTE | 2021-11-23 10:01 | NUR ---
WOUND CARE CONSULT: PT PRESENTS WITH LEFT THIGH GRAFT DONOR SITE DRESSING AND LOWER LEG SURGICAL SITE DRESSING. DEFER TO DR ROSENBAUM FOR WOUND TREATMENT PLAN. PT NOTED TO BE INCONTINENT OF URINE. RECOMMENDATIONS MADE FOR SKIN PROTECTION. DISCUSSED WITH NURSING STAFF. MD IN AGREEMENT WITH PLAN OF CARE.
--- NOTE | 2021-11-23 11:14 | NUR ---
MS RN NOTES PT IS PRESENTED WITH SATURATE BLEEDING IN LEFT THIGH GRAFT DONOR SITE DRESSING. LOWER LEG SURGICAL SITE DRESSING IS CLEAN, DRY, AND INTACT. DR ROSENBAUM INFORMED ABOUT PATIENT'S CURRENT SITUATION. ISRRAEL IS IN PLACE @[id number].
[2021-11-23] MEDS: DOXYCYCLINE HYCLATE (100 MG) 100 MG TABLET PO SCH ×2 (13:11→16:41)
[2021-11-23 16:06] VITALS: BP 143/59
--- NOTE | 2021-11-23 19:16 | NUR ---
MS RN CLOSING NOTES PATIENT IS ALERT, AWAKE AND ORIENTED X 4. SCS IN RIGHT LE. IV IS IN R FA #20G SL, INTACT. NO SIGNS OF DISCOMFORT AND DISTRESS. PATIENT HAD A SURGERY THIS YESTERDAY S/P. SPLIT THICKNESS SKIN GRAFT ANKLE LEFT. LEFT LOWER EXTREMITIES IS ELEVATED WITH 2 PILLOWS, AND HAS A GOOD CIRCULATION; SURGERY GAUZE AND PAWAN BANDAGE IN PLACE, CLEAN, DRY, AND INTACT. 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 V/S IS WITHIN NORMAL LIMITS, AND STABLE. WILL ENDORSE TO INCOMING PM SHIFT FOR VINEET.
--- NOTE | 2021-11-23 19:43 | NUR ---
MS RN OPENING NOTES PATIENT RECEIVED IN AAOX 4. ON RA TATIANA WELL NO SIGN SOB/DISTRESS NOTED. ,IV IS IN R FA #20G SL, INTACT.S/P SPLIT THICKNESS SKIN GRAFT ANKLE LEFT.NO SIGN BLEEDING NOTED. LEFT LOWER EXTREMITIES IS ELEVATED WITH 2 PILLOWS, AND HAS A GOOD CIRCULATION; SURGERY GAUZE AND PAWAN BANDAGE IN PLACE,PATIENT IS A PERSIAN SPEAKER, AND ABLE TO COMMUNICATE HER NEEDS.SAFETY MEASURE IN PLACE.CALL LIGHT WITHIN REACH. WILL CONTINUE TO MONITOR.
[2021-11-23 20:00] VITALS: BP 184/77
[2021-11-23] MEDS: ACETAMINOPHEN 325 MG TABLET PO PRN (20:28)
[2021-11-24] MEDS: ACETAMINOPHEN 325 MG TABLET PO PRN ×2 (06:39→16:34)
--- NOTE | 2021-11-24 06:44 | NUR ---
MS RN CLOSING NOTES PATIENT IN BED SLEEPING. AAOX 4. ON RA TATIANA WELL NO SIGN SOB/DISTRESS NOTED. ,IV IS IN R FA #20G SL, INTACT.S/P SPLIT THICKNESS SKIN GRAFT ANKLE LEFT.NO SIGN BLEEDING NOTED. LEFT LOWER EXTREMITIES IS ELEVATED WITH 2 PILLOWS, AND HAS A GOOD CIRCULATION; SURGERY GAUZE AND PAWAN BANDAGE IN PLACE,PT IS A SYRI[place] SPEAKER, AND ABLE TO COMMUNICATE HER NEEDS.SAFETY MEASURE IN PLACE.CALL LIGHT WITHIN REACH. WILL ENDORSED TO NEXT SHIFT
[2021-11-24 08:00] VITALS: BP 131/59
--- NOTE | 2021-11-24 08:14 | NUR ---
MS RN OPENING NOTE Patient in bed, awake. A/O x 4, Kyrgyz speaking. On room air, breathing evenly and unlabored. No SOB or s/s of distress noted. IV access on RFA #20 SL, intact and patent. Purewick system in place. Dressing on LLE c/d/i. Safety precautions in place: bed in low, locked position; siderails up x 2; call light within reach. Will continue to monitor.
[2021-11-24] MEDS: FERROUS SULFATE (325 MG) 325 MG/TAB TABLET PO SCH ×2 (08:53→16:30)
[2021-11-24] MEDS: ZINC SULFATE 220 MG CAPSULE PO SCH (08:53)
[2021-11-24] MEDS: LISINOPRIL (10MG) 10 MG TABLET PO SCH (08:53)
[2021-11-24] MEDS: FAMOTIDINE (20 MG) 20 MG TABLET PO SCH ×2 (08:53→16:30)
[2021-11-24] MEDS: DOXYCYCLINE HYCLATE (100 MG) 100 MG TABLET PO SCH ×2 (08:53→16:30)
[2021-11-24] MEDS: ASCORBIC ACID 500 MG TABLET PO SCH (08:53)
[2021-11-24] MEDS: GABAPENTIN 300 MG CAPSULE PO SCH ×3 (08:53→16:30)
[2021-11-24] MEDS: LEVOTHYROXINE SODIUM 75 MCG TABLET PO SCH (08:57)
[2021-11-24] MEDS: ENOXAPARIN SODIUM 40 MG/0.4 ML DISP.SYRIN SQ SCH (08:59)
--- NOTE | 2021-11-24 09:01 | NUR ---
RN NOTE Patient complained of pain on LLE, 01/01. PRN [place] 5/325 2 tabs given. Will continue to monitor.
[2021-11-24 11:44] LABS: BASOPHILS % (AUTO) 0.2 % (0.0-2.0); EOSINOPHILS % (AUTO) 0.6 % (0.0-6.0); HEMATOCRIT 29 % (33-45); HEMOGLOBIN 9.9 g/dL (11.5-14.8); LYMPHOCYTES # (AUTO) 0.8 K/uL (0.8-4.8); LYMPHOCYTES % (AUTO) 10.4 % (20.0-44.0); MEAN CORPUSCULAR HGB CONC 34 g/dl (31.0-36.0); MEAN CORPUSCULAR VOLUME 87 fL (82-100); MONOCYTES # (AUTO) 0.8 K/uL (0.1-1.30); MONOCYTES % (AUTO) 10.4 % (2.0-12.0); NEUTROPHILS % (AUTO) 78.4 % (43.0-81.0); PLATELET COUNT (AUTO) 210 K/uL (150-450); WHITE BLOOD COUNT (AUTO) 7.7 K/uL (4.3-11.0)
[2021-11-24 12:08] LABS: CARBON DIOXIDE 28 mmol/L (21-32); CHLORIDE 103 mmol/L (98-107); CREATININE 0.6 mg/dL (0.6-1.3); GLUCOSE 129 mg/dL (74-106); POTASSIUM 3.4 mmol/L (3.5-5.1); SODIUM SERUM 138 mmol/L (136-145); UREA NITROGEN, BLOOD 13 mg/dL (7-18)
[2021-11-24] MEDS: CEFEPIME 1 GM in IV D5W 50 ML IV SCH ×2 (12:09→20:39)
[2021-11-24] MEDS: VANCOMYCIN 1 GM in IV D5W 250ml IV SCH (12:51)
--- NOTE | 2021-11-24 16:34 | NUR ---
RN NOTE Patient complained of mild pain on left shoulder and neck. PRN Tylenol given. Will continue to monitor.
[2021-11-24 16:37] VITALS: BP 134/66
--- NOTE | 2021-11-24 18:56 | NUR ---
MS RN CLOSING NOTE Patient in bed, asleep. A/O x 4, able to make needs known. Stable on room air, breathing evenly and unlabored. No SOB or s/s of distress noted. IV access on RFA #20 SL, intact and patent. Purewick system in place. Dressing on LLE c/d/i. All needs attended to. due meds given. Safety precautions maintained: bed in low, locked position; siderails up x 2; call light within reach. Will endorse to hourly shift nurse for VINEET.
--- NOTE | 2021-11-24 19:50 | NUR ---
RN OPENING NOTES RECEIVED PT IN BED, SLEEPING, AWAKENS TO TACTILE STIMULI. AOx4, FRISIAN SPEAKING. ON RA AND TOLERATING WELL. NO SOB NOTED. NO S/SX OF RESPIRATORY DISTRESS NOTED. IV ACCESS IN RFA #20G. IV IS INTACT, PATENT, AND FLUSHING WELL. SAFETY PRECAUTIONS IN PLACE: BED IN LOWEST, LOCKED POSITION, SIDERAILS UPx2, AND BRAKES ON. TABLE AND CALL LIGHT WITHIN REACH. WILL CONTINUE TO MONITOR.
[2021-11-24 20:07] VITALS: BP 129/92
[2021-11-25] MEDS: VANCOMYCIN 1 GM in IV D5W 250ml IV SCH (05:26)
--- NOTE | 2021-11-25 06:43 | NUR ---
RN CLOSING NOTES PT IN BED, SLEEPING, AWAKENS TO VERBAL STIMULI. AOx4, [place] SPEAKING. ON RA AND TOLERATING WELL. NO SOB NOTED. NO S/SX OF RESPIRATORY DISTRESS NOTED. IV ACCESS IN RFA #20G. IV IS INTACT, PATENT, AND FLUSHING WELL. ALL ORDERS CARRIED OUT. ALL NEEDS MET. PT KEPT CLEAN AND DRY. SAFETY PRECAUTIONS IN PLACE: BED IN LOWEST, LOCKED POSITION, SIDERAILS UPx2, AND BRAKES ON. TABLE AND CALL LIGHT WITHIN REACH. WILL ENDORSE TO ONCOMING SHIFT FOR VINEET.
--- NOTE | 2021-11-25 07:00 | NUR ---
MS RN OPENING NOTES PATIENT LAYING IN BED, A/O X 4, ABLE TO MAKE NEEDS KNOWN. [place] SPEAKING. TOLERATING WELL ON ROOM AIR WITH NO S/S RESPIRATORY DISTRESS OR SOB. RFA # 20 G SL CLEAN, INTACT, FLUSHING WELL. NO COMPLAINTS OF PAIN OR DISCOMFORT AT THIS TIME. SAFETY PRECAUTIONS IN PLACE: BED IN LOWEST, LOCKED POSITION, SIDERAILS UPx2, AND BRAKES ON. TABLE AND CALL LIGHT WITHIN REACH. WILL ENDORSE TO ONCOMING SHIFT FOR VINEET.
[2021-11-25 07:04] LABS: CARBON DIOXIDE 26 mmol/L (21-32); CHLORIDE 105 mmol/L (98-107); CREATININE 0.6 mg/dL (0.6-1.3); GLUCOSE 128 mg/dL (74-106); POTASSIUM 3.8 mmol/L (3.5-5.1); SODIUM SERUM 138 mmol/L (136-145); UREA NITROGEN, BLOOD 12 mg/dL (7-18)
[2021-11-25] MEDS: LEVOTHYROXINE SODIUM 75 MCG TABLET PO SCH (07:49)
[2021-11-25 08:00] VITALS: BP 109/67
[2021-11-25] MEDS: LISINOPRIL (10MG) 10 MG TABLET PO SCH (09:00)
[2021-11-25] MEDS: ZINC SULFATE 220 MG CAPSULE PO SCH (09:17)
[2021-11-25] MEDS: GABAPENTIN 300 MG CAPSULE PO SCH ×2 (09:17→12:36)
[2021-11-25] MEDS: FERROUS SULFATE (325 MG) 325 MG/TAB TABLET PO SCH (09:17)
[2021-11-25] MEDS: DOXYCYCLINE HYCLATE (100 MG) 100 MG TABLET PO SCH (09:18)
[2021-11-25] MEDS: FAMOTIDINE (20 MG) 20 MG TABLET PO SCH (09:18)
[2021-11-25] MEDS: ASCORBIC ACID 500 MG TABLET PO SCH (09:18)
[2021-11-25] MEDS: ENOXAPARIN SODIUM 40 MG/0.4 ML DISP.SYRIN SQ SCH (09:20)
[2021-11-25] MEDS: CEFEPIME 1 GM in IV D5W 50 ML IV SCH (09:34)
[2021-11-25] MEDS ORDERED: ENOX40DI SQ (10:22)
[2021-11-25] MEDS ORDERED: ASCO500T21 PO (10:22)
[2021-11-25] MEDS ORDERED: DOXY100T2 PO (10:22)
[2021-11-25] MEDS ORDERED: Zinc Sulfate PO (10:22)
[2021-11-25] MEDS: ACETAMINOPHEN 325 MG TABLET PO PRN (10:25)
--- NOTE | 2021-11-25 15:50 | NUR ---
APPLIANCE SERVICE SUPERVISOR NOTES PATIENT MADE AWARE OF MD DISCHARGE INSTRUCTIONS. PATIENT VERBALIZED UNDERSTANDING AND SIGNED MD DISCHARGE INSTRUCTIONS PAPERWORK, PATIENT ALSO VERBALIZED POSSESSION OF ALL BELONGINGS AND SIGNED BELONGINGS LIST. PATIENT STABLE. REPORT CALLED TO [facility] AND REPORT GIVEN TO CLIVE MCBRIDE. IV LINE AND ID BAND REMOVED. PATIENT TRANSPORTED OFF OF FLOOR BY 2 FASHION DESIGN PROFESSOR AND TRANSFERRED OFF OF UNIT.
== END 2021-11-25 15:50 | DRG 264 ==
LOC: DS 05:20 → MED 05:23
PROVIDERS: ADMIT Nurse Practitioner Acute Care; ATTEND Nurse Practitioner Acute Care
PROC: 0HRLX74 Replacement of Left Lower Leg Skin with Autologous Tissue Substitute, Partial Thickness, External Approach (ICD-10-PCS; principal; 2021-11-22)
PROC: 0HBJXZZ Excision of Left Upper Leg Skin, External Approach (ICD-10-PCS; 2021-11-22)
DX: I87.312 Chronic venous hypertension (idiopathic) with ulcer of left lower extremity (principal); L97.828 Non-pressure chronic ulcer of other part of left lower leg with other specified severity; D68.59 Other primary thrombophilia; Z20.822 Contact with and (suspected) exposure to COVID-19; I89.0 Lymphedema, not elsewhere classified; E78.5 Hyperlipidemia, unspecified; I87.2 Venous insufficiency (chronic) (peripheral); I10 Essential (primary) hypertension; E03.9 Hypothyroidism, unspecified; D64.9 Anemia, unspecified; Z79.899 Other long term (current) drug therapy; Z74.09 Other reduced mobility
CPT/HCPCS: 36415; 71045-TC; 80048-TC; 80061-TC; 82962-TC; 83735-TC; 84100-TC; 84443-TC; 85025-TC; 87040-TC; 87081-TC; 87086-TC; 97110-TC; 97116-TC; 97530-TC; A6253; A6403; G0378; J0690; J0692; J1650; J2250; J2270; J2405; J2704; J2765; J3010; J3370; J3490; J7030; J7040; J7050; J7060

== ENCOUNTER 2021-12-20 09:20 | Outpatient (CLI) | payer MEDICARE, OTHER ==
[~2021-12-20 09:20] MED LIST changes: +ASCO500T21 PO; +CALC500T63 PO; -CLOP75TA15 PO; +DOXY100T2 PO; +ENOX40DI SQ; -EZET10TA32 MT; +FAMO20TA8 PO; +FERR325T24 PO; -GABA600T12 MT; +GABA600T12 PO; +IBAN150T16 PO; -LEVO750T46 MT; +POLY15DR12 EACHEYE; -WALK1EAC55 MC; +Zinc Sulfate PO; +[UNRECOGNIZED DRUG - OTHER] PO
== END 2021-12-20 23:59 | disposition home health service (06) ==
LOC: WOU 09:20
PROVIDERS: ATTEND Podiatrist Foot & Ankle Surgery
DX: I87.312 Chronic venous hypertension (idiopathic) with ulcer of left lower extremity (principal); L97.222 Non-pressure chronic ulcer of left calf with fat layer exposed; I73.9 Peripheral vascular disease, unspecified; I89.0 Lymphedema, not elsewhere classified; M79.605 Pain in left leg; M20.42 Other hammer toe(s) (acquired), left foot; M20.41 Other hammer toe(s) (acquired), right foot; M21.42 Flat foot [pes planus] (acquired), left foot; M79.675 Pain in left toe(s); B35.1 Tinea unguium; I10 Essential (primary) hypertension; Z79.899 Other long term (current) drug therapy; Z79.82 Long term (current) use of aspirin
CPT/HCPCS: G0463

== ENCOUNTER 2021-12-27 09:10 | Outpatient (CLI) | payer MEDICARE, OTHER ==
[2021-12-27] MEDS ORDERED: MUPIROCIN 2% CREAM 15 GM TUBE TP ONE (09:37)
== END 2021-12-27 23:59 | disposition home health service (06) ==
LOC: WOU 09:10
PROVIDERS: ATTEND Podiatrist Foot & Ankle Surgery
DX: I87.312 Chronic venous hypertension (idiopathic) with ulcer of left lower extremity (principal); L97.222 Non-pressure chronic ulcer of left calf with fat layer exposed; I73.9 Peripheral vascular disease, unspecified; M79.605 Pain in left leg; M20.42 Other hammer toe(s) (acquired), left foot; M20.41 Other hammer toe(s) (acquired), right foot; M21.42 Flat foot [pes planus] (acquired), left foot; I89.0 Lymphedema, not elsewhere classified; Z74.09 Other reduced mobility; I10 Essential (primary) hypertension; Z79.899 Other long term (current) drug therapy; Z79.82 Long term (current) use of aspirin
CPT/HCPCS: G0463

== ENCOUNTER 2022-01-03 08:45 | Outpatient (CLI) | payer MEDICARE, OTHER ==
[2022-01-03] MEDS ORDERED: MUPIROCIN 2% CREAM 15 GM TUBE TP ONE (09:07)
== END 2022-01-03 23:59 | disposition home health service (06) ==
LOC: WOU 08:45
PROVIDERS: ATTEND Podiatrist Foot & Ankle Surgery
DX: I87.312 Chronic venous hypertension (idiopathic) with ulcer of left lower extremity (principal); L97.322 Non-pressure chronic ulcer of left ankle with fat layer exposed; I73.9 Peripheral vascular disease, unspecified; M20.42 Other hammer toe(s) (acquired), left foot; M20.41 Other hammer toe(s) (acquired), right foot; M21.42 Flat foot [pes planus] (acquired), left foot; B35.1 Tinea unguium; I10 Essential (primary) hypertension; Z79.82 Long term (current) use of aspirin; Z79.899 Other long term (current) drug therapy
CPT/HCPCS: 11042

== ENCOUNTER 2022-01-10 08:39 | Outpatient (CLI) | payer MEDICARE, OTHER ==
[2022-01-10] MEDS ORDERED: MUPIROCIN 2% CREAM 15 GM TUBE TP ONE (09:16)
== END 2022-01-10 23:59 | disposition home health service (06) ==
LOC: WOU 08:39
PROVIDERS: ATTEND Podiatrist Foot & Ankle Surgery
DX: I87.312 Chronic venous hypertension (idiopathic) with ulcer of left lower extremity (principal); L97.222 Non-pressure chronic ulcer of left calf with fat layer exposed; I89.0 Lymphedema, not elsewhere classified; I73.9 Peripheral vascular disease, unspecified; M20.42 Other hammer toe(s) (acquired), left foot; M20.41 Other hammer toe(s) (acquired), right foot; M21.42 Flat foot [pes planus] (acquired), left foot; B35.1 Tinea unguium; M79.605 Pain in left leg; Z79.82 Long term (current) use of aspirin; Z79.899 Other long term (current) drug therapy
CPT/HCPCS: 11042

== ENCOUNTER 2022-01-17 08:50 | Outpatient (CLI) | payer MEDICARE, OTHER | END 2022-01-17 23:59 | disposition home health service (06) | LOC: WOU 08:50 | PROVIDERS: ATTEND Podiatrist Foot & Ankle Surgery | DX: I87.312 Chronic venous hypertension (idiopathic) with ulcer of left lower extremity (principal); L97.222 Non-pressure chronic ulcer of left calf with fat layer exposed; I73.9 Peripheral vascular disease, unspecified; I89.0 Lymphedema, not elsewhere classified; M20.42 Other hammer toe(s) (acquired), left foot; M20.41 Other hammer toe(s) (acquired), right foot; M21.42 Flat foot [pes planus] (acquired), left foot; B35.1 Tinea unguium; M79.602 Pain in left arm; Z79.82 Long term (current) use of aspirin; Z79.899 Other long term (current) drug therapy | CPT/HCPCS: 11042 ==

== ENCOUNTER 2022-01-27 10:40 | Outpatient (CLI) | payer MEDICARE, OTHER | END 2022-01-27 23:59 | disposition home health service (06) | LOC: WOU 10:40 | PROVIDERS: ATTEND Podiatrist Foot & Ankle Surgery | DX: I87.312 Chronic venous hypertension (idiopathic) with ulcer of left lower extremity (principal); L97.222 Non-pressure chronic ulcer of left calf with fat layer exposed; I73.9 Peripheral vascular disease, unspecified; M20.42 Other hammer toe(s) (acquired), left foot; M20.41 Other hammer toe(s) (acquired), right foot; M21.42 Flat foot [pes planus] (acquired), left foot; I89.0 Lymphedema, not elsewhere classified; B35.1 Tinea unguium; M79.675 Pain in left toe(s); Z79.899 Other long term (current) drug therapy; Z79.82 Long term (current) use of aspirin | CPT/HCPCS: 11042 ==

== ENCOUNTER 2022-02-07 08:45 | Outpatient (CLI) | payer MEDICARE, OTHER ==
[2022-02-07] MEDS ORDERED: UREA 10% -AHA 4% CREAM 57 GM TUBE ONE (09:02)
== END 2022-02-07 23:59 | disposition home or self-care (01) ==
LOC: WOU 08:45
PROVIDERS: ATTEND Podiatrist Foot & Ankle Surgery
DX: I87.392 Chronic venous hypertension (idiopathic) with other complications of left lower extremity (principal); M25.562 Pain in left knee; M54.9 Dorsalgia, unspecified; E11.22 Type 2 diabetes mellitus with diabetic chronic kidney disease; I12.9 Hypertensive chronic kidney disease with stage 1 through stage 4 chronic kidney disease, or unspecified chronic kidney disease; N18.9 Chronic kidney disease, unspecified; I25.10 Atherosclerotic heart disease of native coronary artery without angina pectoris; Z74.09 Other reduced mobility; I87.311 Chronic venous hypertension (idiopathic) with ulcer of right lower extremity
CPT/HCPCS: G0463

== ENCOUNTER 2022-02-14 09:20 | Outpatient (CLI) | payer MEDICARE, OTHER | END 2022-02-14 23:59 | disposition home or self-care (01) | LOC: MSC 09:20 | PROVIDERS: ATTEND Anesthesiology | DX: G89.4 Chronic pain syndrome (principal); M54.16 Radiculopathy, lumbar region; M62.830 Muscle spasm of back; M40.209 Unspecified kyphosis, site unspecified; S81.802D Unspecified open wound, left lower leg, subsequent encounter; M79.606 Pain in leg, unspecified; Z99.3 Dependence on wheelchair; Z96.0 Presence of urogenital implants; Z79.891 Long term (current) use of opiate analgesic; Z79.1 Long term (current) use of non-steroidal anti-inflammatories (NSAID) | CPT/HCPCS: 73560 ×2; G0463 ==

== ENCOUNTER 2022-03-07 08:32 | Outpatient (CLI) | payer MEDICARE, OTHER | END 2022-03-07 23:59 | disposition home health service (06) | LOC: WOU 08:32 | PROVIDERS: ATTEND Podiatrist Foot & Ankle Surgery | DX: M20.12 Hallux valgus (acquired), left foot (principal); M20.11 Hallux valgus (acquired), right foot; M20.42 Other hammer toe(s) (acquired), left foot; M20.41 Other hammer toe(s) (acquired), right foot; M21.42 Flat foot [pes planus] (acquired), left foot; I87.2 Venous insufficiency (chronic) (peripheral); I73.9 Peripheral vascular disease, unspecified; M79.605 Pain in left leg; B35.1 Tinea unguium; Z79.899 Other long term (current) drug therapy | CPT/HCPCS: 73630 ×2; G0463 ==

== ENCOUNTER 2022-03-07 10:00 | Outpatient (CLI) | payer MEDICARE, OTHER ==
[2022-03-07 12:05] LABS: BASOPHILS % (AUTO) 0.3 % (0.0-2.0); HEMATOCRIT 32 % (33-45); HEMOGLOBIN 10.5 g/dL (11.5-14.8); LYMPHOCYTES # (AUTO) 1.7 K/uL (0.8-4.8); LYMPHOCYTES % (AUTO) 20.9 % (20.0-44.0); MEAN CORPUSCULAR HGB CONC 33 g/dl (31.0-36.0); MEAN CORPUSCULAR VOLUME 89 fL (82-100); MONOCYTES # (AUTO) 0.5 K/uL (0.1-1.30); MONOCYTES % (AUTO) 5.9 % (2.0-12.0); NEUTROPHILS # (AUTO) 5.8 K/uL (1.8-8.9); NEUTROPHILS % (AUTO) 69.9 % (43.0-81.0); PLATELET COUNT (AUTO) 324 K/uL (150-450); RED BLOOD CELL COUNT(AUTO) 3.65 MIL/uL (4.0-5.2); WHITE BLOOD COUNT (AUTO) 8.3 K/uL (4.3-11.0)
[2022-03-07 13:03] LABS: C-REACTIVE PROTEIN 0.5 mg/dL (0.0-0.9); THYROID STIMULATING HORMONE 2.474 uIU/mL (0.358-3.74)
[2022-03-07 13:53] LABS: ALBUMIN 3.2 g/dL (3.4-5.0); BILIRUBIN,TOTAL 0.4 mg/dL (0.2-1.0); CALCIUM, SERUM 9.1 mg/dL (8.5-10.1); CREATININE 0.6 mg/dL (0.6-1.3); MAGNESIUM 2.4 mg/dL (1.8-2.4); PHOSPHORUS 2.4 mg/dL (2.5-4.9); POTASSIUM 3.9 mmol/L (3.5-5.1); TOTAL PROTEIN, SERUM 7.6 g/dL (6.4-8.2)
== END 2022-03-07 23:59 | disposition home or self-care (01) ==
LOC: MSC 10:00
PROVIDERS: ATTEND Internal Medicine
DX: S91.302D Unspecified open wound, left foot, subsequent encounter (principal); Z98.890 Other specified postprocedural states; Z87.448 Personal history of other diseases of urinary system; M17.0 Bilateral primary osteoarthritis of knee; M85.80 Other specified disorders of bone density and structure, unspecified site; Z86.73 Personal history of transient ischemic attack (TIA), and cerebral infarction without residual deficits; D64.9 Anemia, unspecified; I10 Essential (primary) hypertension; E78.5 Hyperlipidemia, unspecified; E03.9 Hypothyroidism, unspecified; Z79.890 Hormone replacement therapy; I87.2 Venous insufficiency (chronic) (peripheral); M54.9 Dorsalgia, unspecified; Z86.79 Personal history of other diseases of the circulatory system; Z79.899 Other long term (current) drug therapy
CPT/HCPCS: 80061; 85025; 83735; 83036; 84100; 85652; 36415; 84439; 82746; 84443; 82607; 80053; 86140; G0463

== ENCOUNTER 2022-03-14 08:45 | Outpatient (CLI) | payer MEDICARE, OTHER ==
[2022-03-14] MEDS ORDERED: UREA 10% -AHA 4% CREAM 57 GM TUBE ONE (09:37)
== END 2022-03-14 23:59 | disposition home health service (06) ==
LOC: WOU 08:45
PROVIDERS: ATTEND Podiatrist Foot & Ankle Surgery
DX: I87.2 Venous insufficiency (chronic) (peripheral) (principal); I73.9 Peripheral vascular disease, unspecified; I89.0 Lymphedema, not elsewhere classified; M20.12 Hallux valgus (acquired), left foot; M20.11 Hallux valgus (acquired), right foot; M20.42 Other hammer toe(s) (acquired), left foot; M20.41 Other hammer toe(s) (acquired), right foot; M79.675 Pain in left toe(s); M79.672 Pain in left foot; M79.671 Pain in right foot; B35.1 Tinea unguium; I10 Essential (primary) hypertension
CPT/HCPCS: G0463

== ENCOUNTER 2022-04-14 08:19 | Outpatient (CLI) | payer MEDICARE, OTHER ==
[2022-04-14] MEDS ORDERED: UREA 10% -AHA 4% CREAM 57 GM TUBE ONE (08:27)
== END 2022-04-14 23:59 | disposition home health service (06) ==
LOC: WOU 08:19
PROVIDERS: ATTEND Podiatrist Foot & Ankle Surgery
DX: I87.2 Venous insufficiency (chronic) (peripheral) (principal); I73.9 Peripheral vascular disease, unspecified; B35.1 Tinea unguium; M20.12 Hallux valgus (acquired), left foot; M20.11 Hallux valgus (acquired), right foot; M20.42 Other hammer toe(s) (acquired), left foot; M20.41 Other hammer toe(s) (acquired), right foot; M21.42 Flat foot [pes planus] (acquired), left foot; M79.672 Pain in left foot; M79.671 Pain in right foot; M79.605 Pain in left leg; L60.0 Ingrowing nail; Z79.899 Other long term (current) drug therapy; Z79.82 Long term (current) use of aspirin
CPT/HCPCS: G0463